=== PATIENT | male | born 1965 | race African-American/Black ===

== ENCOUNTER 2019-10-05 17:44 | Observation (INO) | payer BC, SELFPAY ==
--- NOTE | ~2019-10-05 | XR_ITS ---
EXAMINATION: XR chest 2V DATE: 10/05/2019 20:01 INDICATION: Emphysema. Buttock pain. TECHNIQUE: PA and lateral views of the chest were obtained. COMPARISON: Chest radiograph and CT dated 09/04/2018 FINDINGS: Increased lucency and architectural distortion the upper lung zones, right greater than left consiste nt with severe emphysema. Unchanged linear and hazy airspace opacities in the right mid to lower lung zone consistent with chronic atelectasis/scarring. No new airspace opacities, pulmonary edema, pleur al effusion or pneumothorax. The cardiomediastinal silhouette is normal. Minimal thoracic levocurvatu re. IMPRESSION: 1. Severe emphysema with stable appearance of chronic atelectasis/scarring in the right mid to lower lung. Reviewed, dictated and finalized at location A. IMPRESSION: 1. Severe emphysema with stable appearance of chronic atelectasis/scarring in t he right mid to lower lung.
--- NOTE | ~2019-10-05 | CT_ITS ---
EXAMINATION: CT pelvis w con DATE: 10/05/2019 19:57 INDICATION: Left buttock pain TECHNIQUE: Computed tomography (CT) of the pelvis was performed with 100 mL Omnipaque-350 intravenous contrast. The dose-length product was 193.10 mGy-cm. COMPARISON: 01/06/2019 FINDINGS: There are few scattered colonic diverticula without adjacent inflammatory change to suggest diverticu litis. Appendix and visualized portions of the small bowel are normal. Diffuse mild bladder wall thic kening due at least in part to decompressed state. There is inflammatory stranding surrounding a supe rficial peripherally enhancing ringlike perianal abscess which measures up to 1.2 cm in maximal cross -sectional diameter. There is no evident extension deep to the levator ani muscles. No intraperitonea l abscess or free intraperitoneal fluid. No pathologically enlarged pelvic or inguinal lymphadenopath y. Bones are unremarkable. IMPRESSION: 1. Superficial ringlike perianal abscess. Reviewed, dictated and finalized at location A.
[2019-10-05 17:55] VITALS: BP 126/77; PULSE 133; RESP 18; TEMP 36.2; O2SAT 94
[2019-10-05] MEDS: IBUPROFEN IV 800 MG/200 ML 800 MG/200 ML BAG 400 MG IVPB (18:24)
[2019-10-05] MEDS: FAMOTIDINE 20 MG/2 ML VIAL IV PUSH (18:24)
[2019-10-05 18:26] VITALS: PULSE 118
[2019-10-05] MEDS: SODIUM CHLORIDE 0.9% IV 1,000 ML 999 ML IV CONT (18:26)
--- NOTE | 2019-10-05 18:36 | PC.NURSE ---
Gave pt a urinal for urine sample. Pt states he is unable to provide sample at this time
[2019-10-05 18:47] LABS: Basophils Absolute Auto 0.1 K/mm3 (0.0-0.1); Basophils Percent Auto 0.6 % (0.2-1.2); Eosinophils Absolute Auto 0.2 K/mm3 (0-0.3); Eosinophils Percent Auto 1.3 % (0-4.4); Hematocrit 45.5 % (42.0-52.0); Hemoglobin 16.2 g/dL (14.0-18.0); Immature Granulocyte Absolute 0.07 K/mm3 (0.00-0.031); Immature Granulocyte Percent A 0.5 % (0-0.5); Lymphocytes Absolute Auto 1.09 K/mm3 (0.9-3.2); Mean Corpuscular HGB Conc 35.6 g/dl (32-36); Mean Corpuscular Hemoglobin 32.5 pg (26-34); Mean Corpuscular Volume 91.4 fl (80-100); Mean Platelet Volume 9.1 fl (7.4-10.4); Monocytes Absolute Auto 1.3 K/mm3 (0.1-0.6); Monocytes Percent Auto 8.5 % (2.6-8.5); Neutrophils Absolute Auto 12.7 K/mm3 (1.3-6.7); Neutrophils Percent Auto 82.1 % (45.5-73.1); Platelet Count Result 384 k/mm3 (150-375); Red Blood Count 4.98 M/mm3 (4.6-6.20); Red Cell Distribution Width 12.7 % (11.5-14.5); White Blood Count 15.5 K/mm3 (4.5-10.0)
[2019-10-05 18:55] LABS: Lactic Acid Reflex 1.3 mmol/L (0.7-2.1)
[2019-10-05 18:56] LABS: Partial Thromboplastin Time 28.8 SECONDS (22.3-36.8); Prothrombin Time 13.3 Seconds (11.1-14.7)
[2019-10-05 18:57] LABS: Alanine Aminotransferase 13 U/L (4-50); Albumin Level 4.2 g/dL (3.5-5.1); Alkaline Phosphatase 122 U/L (38-126); Aspartate Amino Transferase 21 U/L (17-59); Bilirubin,Total 0.5 mg/dL (0.2-1.3); Blood Urea Nitrogen 8 mg/dL (9-20); Calcium 9.2 mg/dL (8.4-10.2); Carbon Dioxide 27 mmol/L (22-30); Chloride 102 mmol/L (98-107); Estimated CRCL calculation 73 ml/min; Estimated Glomerular Filt Rate > 60; Glucose 146 mg/dL (75-110); Potassium 3.3 mmol/L (3.4-5.0); Sodium 135 mmol/L (137-145)
--- NOTE | 2019-10-05 18:58 | ED.GENADULT ---
HPI - General Adult General Chief complaint: Unspecified <Deon Narvaez PA-C - Last Filed: 10/05/19 20:46> Stated complaint: buttock pain <Deon Narvaez PA-C - Last Filed: 10/05/19 20:46> Time Seen by Provider: 10/05/19 17:48 <LUIZA Rivera Last Filed: 10/05/19 20:46> Source: patient <LUIZA Rivera Last Filed: 10/05/19 20:46> Mode of arrival: ambulatory <LUIZA Rivera Last Filed: 10/05/19 20:46> Limitations: no limitations <Deon Narvaez PA-C - Last Filed: 10/05/19 20:46> History of Present Illness HPI narrative: Patient is a 54-year-old male who presents with 1 day duration of rectal pain patient notes aching pain of the rectum worse with palpation activity movement and bowel movements patient denies injury trauma or similar occurrence patient presents per private vehicle in no distress has not taken anything for his symptoms. <Deon Narvaez PA-C - Last Filed: 10/05/19 20:46> Related Data Home medications: Home Medications Medication Instructions Recorded Confirmed No Home Medications 10/05/19 10/05/19 <LUIZA Rivera Last Filed: 10/05/19 20:46> Allergies/adverse reactions: Allergies Allergy/AdvReac Type Severity Reaction Status Date / Time No Known Allergies Allergy Verified 10/05/19 17:58 <LUIZA Rivera Last Filed: 10/05/19 20:46> Review of Systems Review of Systems: All systems reviewed & are unremarkable except as noted in HPI and below <Deon Narvaez PA-C - Last Filed: 10/05/19 20:46> PMFSH Past Medical History Medical History: Medical History Bilateral sensorineural hearing loss <LUIZA Rivera Last Filed: 10/05/19 20:46> Surgical History Surgical History: Surgical History No significant past surgical history <LUIZA Rivera Last Filed: 10/05/19 20:46> Social History Social History: Social History Smoking packs per day: 0.5 Smoking cigarettes per day: 10.0 Smoking status: Current every day smoker Tobacco type: cigarettes Drinks per week: 5 Substance use: never Gender identity (if verbalized by the patient): Male Spiritual care concerns: No <Deon Narvaez PA-C - Last Filed: 10/05/19 20:46> Exam Narrative: Exam Narrative: GENERAL: Well-appearing, well-nourished, and in no acute distress. HEAD: Normocephalic, atraumatic. EYES: PERRLA and EOMI. ENT: Nares clear, no rhinorrhea or epistaxis. Mucous membranes moist. Oropharynx without tonsillar hypertrophy exudate or other lesions. NECK: Supple. No adenopathy or masses. CHEST: Clear to auscultation. No respiratory distress. No wheezes rales or rhonchi HEART: Regular rate and rhythm. No murmur heard. Normal peripheral pulses. ABDOMEN: Soft, nontender, nondistended RECTAL: Patient with firm tender hard area along the rectum to involve the anal Derm no obvious erythema or drainage EXTREMITIES: Normal range of motion. No edema. SKIN: Warm, dry, no rash. NEURO: No focal deficits. Alert and oriented x3. Cranial nerves II through XII grossly intact. Normal speech and gait PSYCH: Normal mood and affect. 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 Patient will benefit from surgical debridement. Patient be given IV antibiotics, also possible with urinary tract infe
[2019-10-05 19:52] LABS: Add Urine Microscopic? YES; Appearance Urine Clear (Clear); Bacteria Urine 1+ /hpf; Bilirubin Urine Negative (Negative); Blood Urine 1+ (Negative); Color Urine Yellow (Yellow); Glucose Urine UA Negative (Negative); Ketones Urine Negative (Negative); Leukocyte Esterase Ur 2+ LEU/UL (Negative); Mucus Urine Few /lpf; Nitrate Urine Negative (Negative); Protein Urine 2+ mg/dL (Negative); Squamous Epithelial Cell Urine Occasional /hpf (Few); WBC Urine >75 /hpf
[2019-10-05 19:55] LABS: CRP 18.8 mg/dL (<1.0)
[2019-10-05 20:09] VITALS: BP 123/73; PULSE 106; RESP 18; TEMP 37.2; O2SAT 98
[2019-10-05] MEDS: ceFAZolin 2 GM/D5W 50 ML 2 GM/50 ML BAG IVPB (20:50)
--- NOTE | 2019-10-05 21:50 | ADMGEN ---
This patient, Soo Murillo, was admitted to 2 Medical Room 242-. Patient/family oriented to hospital policies and general routines including ID bracelet, bed and alarms, visiting hours, pain management, procedures, bathroom and other care routines, personal items, smoking policy, room service/diet, and visiting hours. Valuables list has been completed. Information on how to activate the Rapid Response Team has been discussed. Patient/Family are encouraged to report perceived risks to care and to ask questions if they do not understand what they are told or what they should do.
[2019-10-05 22:00] VITALS: BP 109/92; PULSE 102; RESP 20; TEMP 37.2; O2SAT 100
[2019-10-05] MEDS: LACTATED RINGERS 1,000 ML 125 ML IV CONT (22:01)
[2019-10-05 22:08] VITALS: BMI 19.5
[2019-10-06] VITALS: BP 106/65; PULSE 88; RESP 18; TEMP 37.1; O2SAT 99
[2019-10-06 04:00] VITALS: BP 104/62; PULSE 78; RESP 20; TEMP 37.2; O2SAT 96
[2019-10-06] MEDS: LACTATED RINGERS 1,000 ML 125 ML IV CONT (05:40)
[2019-10-06 05:46] LABS: Basophils Absolute Auto 0.1 K/mm3 (0.0-0.1); Basophils Percent Auto 0.6 % (0.2-1.2); Eosinophils Absolute Auto 0.5 K/mm3 (0-0.3); Eosinophils Percent Auto 3.5 % (0-4.4); Hematocrit 41.8 % (42.0-52.0); Hemoglobin 14.8 g/dL (14.0-18.0); Immature Granulocyte Absolute 0.08 K/mm3 (0.00-0.031); Immature Granulocyte Percent A 0.6 % (0-0.5); Lymphocytes Percent Auto 7.9 % (18.3-44.2); Mean Corpuscular HGB Conc 35.4 g/dl (32-36); Mean Corpuscular Hemoglobin 32.5 pg (26-34); Mean Corpuscular Volume 91.9 fl (80-100); Mean Platelet Volume 9.2 fl (7.4-10.4); Monocytes Absolute Auto 1.4 K/mm3 (0.1-0.6); Monocytes Percent Auto 10.9 % (2.6-8.5); Neutrophils Absolute Auto 9.7 K/mm3 (1.3-6.7); Neutrophils Percent Auto 76.5 % (45.5-73.1); Platelet Count Result 361 k/mm3 (150-375); Red Blood Count 4.55 M/mm3 (4.6-6.20); Red Cell Distribution Width 12.8 % (11.5-14.5); White Blood Count 12.7 K/mm3 (4.5-10.0)
[2019-10-06 05:53] VITALS: BP 104/62; PULSE 78; RESP 20; TEMP 37.2; O2SAT 96
[2019-10-06 05:58] LABS: Blood Urea Nitrogen 7 mg/dL (9-20); Calcium 8.6 mg/dL (8.4-10.2); Carbon Dioxide 27 mmol/L (22-30); Chloride 105 mmol/L (98-107); Estimated CRCL calculation 91 ml/min; Estimated Glomerular Filt Rate > 60; Glucose 102 mg/dL (75-110); Potassium 3.4 mmol/L (3.4-5.0); Sodium 137 mmol/L (137-145)
[2019-10-06] MEDS: FAMOTIDINE 20 MG/2 ML VIAL IV PUSH (09:36)
--- NOTE | 2019-10-06 09:53 | PM.IMHP ---
H&P: HPI History of Present Illness Chief complaint: Perirectal abscess Narrative: Soo Murillo is a 54 year old male presenting to ED c 2 d h/o worsening rectal pain. Pt reports pain started when he had a BM and felt something rip. Pt reports severe pressure and pain over last 24 hours. Pt reports this am pain and pressure are much improved. Review of Systems Constitutional: Constitutional: Denies anorexia, Denies chills, Denies fatigue, Denies headache(s), Denies malaise, Denies poor appetite, Denies weight gain and Denies weight loss Eyes: Eyes: Denies no additional eye complaints and Denies change in vision ENT: Reports Normal hearing present, Denies headache(s), Denies hearing loss and Denies sore throat Cardiovascular: Cardiovascular: Denies chest pain, Denies palpitations and Denies dyspnea Respiratory: Respiratory: Denies cough and Denies dyspnea Gastrointestinal: Gastrointestinal: Denies abdominal pain, Denies change in stool character, Denies constipation, Denies diarrhea, Denies nausea and Denies vomiting Comments: + rectal pain Genitourinary: Genitourinary: Denies dysuria, Denies urinary frequency and Denies urinary urgency Musculoskeletal: Musculoskeletal: Reports no additional musculoskeletal complaints Integumentary/Breasts: Skin/Breast: Denies pruritus, Denies lesions and Denies wounds Neurologic: Denies confusion and Denies headache(s) Psychiatric: Psychiatric: Reports no additional psychiatric complaints and Denies confusion Endocrine: Endocrine: Reports no additional endocrine complaints, Denies fatigue and Denies palpitations Hematologic/Lymphatic: Hematologic/Lymphatic: Reports no additional hematologic/lymphatic complaints Allergic/Immunologic: Allergic/Immunologic: Reports no additional allergic/immunologic complaints [facility] Past Medical History Medical History Bilateral sensorineural hearing loss Surgical History Surgical History No significant past surgical history Family History Family History Other No significant family history Social History Social History Smoking packs per day: 0.5 Smoking cigarettes per day: 10.0 Smoking status: Current every day smoker Tobacco type: cigarettes Drinks per week: 5 Substance use: never Gender identity (if verbalized by the patient): Male Spiritual care concerns: No Meds Home Medications and Allergies Home Medications Medication Instructions Recorded Confirmed Type No Home Medications 10/05/19 10/05/19 History Allergies Allergy/AdvReac Type Severity Reaction Status Date / Time No Known Allergies Allergy Verified 10/05/19 17:58 Vital Signs Vital Signs - 24 hr 10/05/19 17:55 10/05/19 18:26 10/05/19 20:09 Temperature 36.2 C L 37.2 C Pulse Rate 133 H 118 H 106 H Respiratory Rate 18 18 Blood Pressure 126/77 123/73 Pulse Oximetry 94 98 10/05/19 22:00 10/06/19 00:00 10/06/19 04:00 Temperature 37.2 C 37.1 C 37.2 C Pulse Rate 102 H 88 78 Respiratory Rate 20 18 20 Blood Pressure 109/92 H 106/65 104/62 Pulse Oximetry 100 99 96 10/06/19 05:53 Temperature 37.2 C Pulse Rate 78 Respiratory Rate 20 Blood Pressure 104/62 Pulse Oximetry 96 Exam Const: General: cooperative, healthy appearing, no acute distress and well developed; No confusion Orientation/consciousness: patient oriented x3 and No confusion HENMT: Head: normal to inspection, normocephalic and atraumatic Mouth: Yes Normal oral and palatal mucosa present and Yes moist mucous membranes Teeth and gingiva: dentition normal Eyes: Conjunctivae: conjunctivae normal Pupils: Equal, round and reactive pupils present EOM: EOMs intact bilaterally Neck: Neck: normal visual inspection, full ROM, no lymphadenopathy, trachea
[2019-10-06 10:00] VITALS: BP 129/77; PULSE 98; RESP 18; TEMP 36.7; O2SAT 94
--- NOTE | 2019-10-06 10:05 | PM.DS ---
DS: Admitting Diagnosis Admitting Diagnosis Admitting Diagnosis: Rectal abscess DS: Discharge Diagnosis Discharge Diagnosis (1) Abscess, perirectal: Code(s): K61.1 - Rectal abscess Status: Acute Assessment and Plan: cont abx, will switch to po Keflex at dc, cont local wound care, f/u c me in 1 wk DS: Summary Hospital Course Reason for hospitalization: perirectal abscess Hospital Course: Pt admitted to hospital c perirectal abscess. Pt reports pain significantly improved on HD 1 after abx, pain meds. Rectal exam on HD 1 benign. Given this, decision to switch to po abx and dc home c close f/u and wound care. Status at Discharge Functional status at discharge: independent ambulation Overall status at discharge: patient is progressing back to baseline Time Spent with Patient Time attestation: Total time spent providing and/or coordinating discharge services: Time spent: Less than 30 minutes DS: Data Data Completed and Pending Labs on day of discharge: Labs from last 24 hours 10/06/19 10/06/19 10/05/19 05:10 05:10 19:39 WBC 12.7 H RBC 4.55 L Hgb 14.8 Hct 41.8 L MCV 91.9 MCH 32.5 MCHC 35.4 RDW 12.8 Plt Count 361 MPV 9.2 Immature Gran % (Auto) 0.6 H Neut % (Auto) 76.5 H Lymph % (Auto) 7.9 L Piatt % (Auto) 10.9 H Eos % (Auto) 3.5 Baso % (Auto) 0.6 Lymph # (Auto) 1.00 Piatt # (Auto) 1.4 H Eos # (Auto) 0.5 H Baso # (Auto) 0.1 Abs Immat Gran (auto) 0.08 H Absolute Neuts (auto) 9.7 H Absolute Nucleated RBC 0.0 Nucleated RBC % 0.0 PT INR APTT Sodium 137 Potassium 3.4 Chloride 105 Carbon Dioxide 27 BUN 7 L Creatinine 0.80 Estim Creat Clear Calc 91 Estimated GFR > 60 Glucose 102 Lactic Acid Calcium 8.6 Total Bilirubin AST ALT Alkaline Phosphatase C-Reactive Protein Total Protein Albumin Urine Color Yellow Urine Appearance Clear Urine pH 5.0 Ur Specific [place] 1.020 Urine Protein 2+ H Urine Glucose (UA) Negative Urine Ketones Negative Ur Blood (Man) 1+ H Urine Nitrate Negative Urine Bilirubin Negative Urine Urobilinogen 2.0 H Leukocyte Esterase Rfl 2+ H Urine RBC 3-5 H Urine WBC >75 H Ur Squamous Epith Cells Occasional Urine Bacteria 1+ H Hyaline Casts 5-9 H Urine Mucus Few H 10/05/19 10/05/19 10/05/19 18:29 18:29 18:29 WBC RBC Hgb Hct MCV MCH MCHC RDW Plt Count MPV Immature Gran % (Auto) Neut % (Auto) Lymph % (Auto) Piatt % (Auto) Eos % (Auto) Baso % (Auto) Lymph # (Auto) Piatt # (Auto) Eos # (Auto) Baso # (Auto) Abs Immat Gran (auto) Absolute Neuts (auto) Absolute Nucleated RBC Nucleated RBC % PT 13.3 INR 1.0 APTT 28.8 Sodium 135 L Potassium 3.3 L Chloride 102 Carbon Dioxide 27 BUN 8 L Creatinine 1.00 Estim Creat Clear Calc 73 Estimated GFR > 60 Glucose 146 H Lactic Acid 1.3 Calcium 9.2 Total Bilirubin 0.5 AST 21 ALT 13 Alkaline Phosphatase 122 C-Reactive Protein 18.8 H Total Protein 8.0 Albumin 4.2 Urine Color Urine Appearance Urine pH Ur Specific [place] Urine Protein Urine Glucose (UA) Urine Ketones Ur Blood (Man) Urine Nitrate Urine Bilirubin Urine Urobilinogen Leukocyte Esterase Rfl Urine RBC Urine WBC Ur Squamous Epith Cells Urine Bacteria Hyaline Casts Urine Mucus 10/05/19 18:29 WBC 15.5 H RBC 4.98 Hgb 16.2 Hct 45.5 MCV 91.4 MCH 32.5 MCHC 35.6 RDW 12.7 Plt Count 384 H MPV 9.1 Immature Gran % (Auto) 0.5 Neut % (Auto) 82.1 H Lymph % (Auto) 7.0 L Piatt % (Auto) 8.5 Eos % (Auto) 1.3 Baso % (Auto) 0.6 Lymph # (Auto) 1.09 Piatt # (Auto) 1.3 H Eos # (Auto) 0.2 Baso # (Auto) 0.1 Abs Immat Gran (auto) 0.07 H Absolute Neuts (auto)
[2019-10-06 13:56] VITALS: BP 116/66; PULSE 83; RESP 16; TEMP 37.4; O2SAT 99
== END 2019-10-06 14:45 | disposition home or self-care (01) ==
LOC: ANHED 20:46 → ANH2MED 21:01
PROVIDERS: Emergency Medicine Emergency Medical Services; Admitting Provider Surgery; Emergency Provider Emergency Medicine; Visit Provider Surgery
DX: K61.1 Rectal abscess (principal); F17.210 Nicotine dependence, cigarettes, uncomplicated; Z79.899 Other long term (current) drug therapy
CPT/HCPCS: 36415; 71046; 72193; 80048; 80053; 81001; 83605; 85025; 85610; 85730; 86140; 87040; 87077; 87086; 87186; 96361; 96365; 96367; 96375; 96376; 99285; G0378; J0131; J0690; J1741; J7030; J7120; Q9967

== ENCOUNTER 2022-01-26 09:07 | Observation (INO) | payer OTHER, BC, SELFPAY ==
[2022-01-26] VITALS (30 sets, daily range): BP systolic 86–126; BP diastolic 53–74; PULSE 77–112; RESP 12–33; TEMP 36.8–38.3; O2SAT 94–100
--- NOTE | ~2022-01-26 | CT_ITS ---
EXAMINATION: CT cervical spine wo con DATE: 01/26/2022 09:53 INDICATION: Altered mental status. TECHNIQUE: Computed tomography (CT) of the cervical spine was performed without intravenous contrast. Automated exposure control and iterative reconstruction technique were employed. The dose-length pro duct was 337.62 mGy-cm. COMPARISON: None FINDINGS: There is bullous emphysema at the lung apices. There is kyphosis of cervical spine. Vertebr al body heights are normal. There is moderately decreased disc height at C4-C5. The following disc le vels are specifically discussed: C2-C3: There is mild bilateral uncovertebral joint osteoarthritis. There is mild right and severe lef t facet joint osteoarthritis. There is no neural foraminal stenosis. There is no central canal stenos is. C3-C4: There is mild left uncovertebral joint osteoarthritis. There is severe right and moderate left facet joint osteoarthritis. There is mild right neural foraminal stenosis. There is no central canal stenosis. C4-C5: There is mild bilateral uncovertebral joint osteoarthritis. There is mild right and severe lef t facet joint osteoarthritis. There is mild bilateral neural foraminal stenosis. There is no central canal stenosis. C5-C6: There is mild bilateral uncovertebral joint osteoarthritis. There is mild bilateral facet join t osteoarthritis. There is mild left neural foraminal stenosis. There is no central canal stenosis. C6-C7: There is no uncovertebral joint osteoarthritis. There is moderate right and severe left facet joint osteoarthritis. There is mild bilateral neural foraminal stenosis. There is no central canal st enosis. C7-T1: There is no uncovertebral joint osteoarthritis. There is severe bilateral facet joint osteoart hritis. There is mild bilateral neural foraminal stenosis. There is no central canal stenosis. IMPRESSION: 1. No fracture. 2. Moderate cervical spondylosis. Reviewed, dictated and finalized at location A.
--- NOTE | ~2022-01-26 | MR_ITS ---
EXAMINATION: MR brain/brain stem wo con DATE: 01/27/2022 12:07 INDICATION: New onset seizure. TECHNIQUE: Magnetic resonance imaging (MRI) of the brain and brainstem was performed without intraven ous contrast. COMPARISON: Head CT 01/26/2022 FINDINGS: There are scattered areas of nonspecific increased T2-weighted signal intensity in the cere bral white matter, which is within normal limits for the patient's age. There is no intracranial hemo rrhage, acute infarction, or abnormal intracranial mass lesion. The ventricles are normal in size. Th e orbits are normal. There is mild mucosal thickening in the paranasal sinuses. There are trace bilat eral mastoid effusions. IMPRESSION: 1. Normal aging brain. Reviewed, dictated and finalized at location A. IMPRESSION: 1. Normal aging brain.
--- NOTE | ~2022-01-26 | XR_ITS ---
EXAMINATION: XR chest 1V INDICATION: Altered mental status TECHNIQUE: AP view of the chest is obtained. COMPARISON: 10/05/2019 FINDINGS: There is severe emphysema in the upper lobes. There are areas of scarring in the right mid and lower lung zones. No acute airspace opacities are identified. No pleural effusion or pneumothorax . The cardiomediastinal silhouette is normal. Surgical clips project in the right axilla and upper ex tremity soft tissues. IMPRESSION: 1. No acute cardiopulmonary abnormality. Reviewed, dictated and finalized at location A.
--- NOTE | ~2022-01-26 | CT_ITS ---
EXAMINATION: CT brain wo con INDICATION: Confusion, altered mental status COMPARISON: None TECHNIQUE: Standard unenhanced head CT. The dose-length product (DLP) was 605.33 mGy-cm. The mA was a djusted according to patient size. Iterative reconstruction technique was employed. FINDINGS: There is no intracranial hemorrhage, acute infarction, or abnormal mass lesion. The ventric les are normal. There is no abnormal mass effect or midline shift. The gandara-white matter differentiat ion is normal. The basal cisterns are patent. The orbits are normal. The paranasal sinuses, mastoids and calvarium are normal. IMPRESSION: 1. No acute intracranial abnormality. Reviewed, dictated and finalized at location A.
--- NOTE | 2022-01-26 09:10 | ECG_ITS ---
Measurements Intervals [place] Rate: 88 P: 81 VA: 124 QRS: 79 QRSD: 88 T: 79 QT: 347 QTc: 421 Interpretive Statements SINUS RHYTHM NO PREVIOUS ECG AVAILABLE FOR COMPARISON Electronically Signed On 01-27-2022 13:03:02 CDT by Jo Lei M.D.
--- NOTE | 2022-01-26 09:13 | PC.NURSE ---
fall precautions initiated, at bedside, sitter placed with patient for patient safety.
--- NOTE | 2022-01-26 09:19 | ED.GENADULT ---
HPI - General Adult General Chief complaint: Altered Mental Status Stated complaint: AMS Source: RN notes reviewed History of Present Illness HPI narrative: Patient presents emergency department from home via EMS for altered mental status. History is per the patient and as well as EMS. states she came home from work this morning and the patient stated that he had a headache states he had a bump on the side of his head he is unsure how he got the bump on the side of his head. Per the patient's the patient then began to act altered and she states he clenched up his arms and was grabbing his head and screaming states that following this the patient became confused and EMS was called when EMS arrived the patient was combative was unable to give any history and could not be brought to the ER without any medication he was given Valium 5 mg and Haldol 5 mg. Upon presentation the emergency department the patient is now more awake and alert he is able to tell me his name he states he is unsure why he is here and does not know what happened previously per the the patient has no history of seizures per the patient he denies any drug use of any kind Related Data Allergies Allergy/AdvReac Type Severity Reaction Status Date / Time No Known Allergies Allergy Verified 10/05/19 17:58 Review of Systems Review of Systems: Gen.: Denies fevers or chills ENT: Denies congestion Respiratory: Denies shortness of breath or cough CV: Denies chest pain GI: Denies abdominal pain nausea, emesis Musculoskeletal: Denies back pain or muscle pain Neuro: D reports headache and altered mental status Skin: Denies rash Except as documented, all other systems reviewed and negative [facility] Past Medical History Medical History (Updated 01/26/22 @ 12:46 by Louis Gan DO) Bilateral sensorineural hearing loss Surgical History Surgical History No significant past surgical history Family History Family History Other No significant family history Social History Social History Smoking packs per day: 0.5 Smoking cigarettes per day: 10.0 Smoking status: Current every day smoker Tobacco type: cigarettes Drinks per week: 5 Substance use: never Gender identity (if verbalized by the patient): Male Spiritual care concerns: No Exam Narrative: APPEARANCE: No acute distress, nontoxic, resting in bed EYES: EOMI HEENT: Normocephalic, atraumatic, OMM RESPIRATORY: No respiratory distress Clear to auscultation bilaterally with no rhonchi wheezing or rales. CARDIOVASCULAR: Tachycardic and regular without murmurs rubs or gallops. ABDOMINAL: Soft, nontender, nondistended, no rebound or guarding MUSCULOSKELETAl: Moves all extremities. No clubbing, cyanosis or edema. NEURO: Awake and alert x 1. Following commands, speech normal, no focal deficits strength 5 out of 5 in bilateral upper and lower extremities SKIN:: Warm, dry. No rashes lesions or abrasions PSYCHIATRIC: Normal affect/mood, Course Course Emergency Course: Patient is progressively become more awake and alert currently ANO x3 answering all questions does not recall the incidents from earlier Discussed with Dr. Hess presentation work-up agrees with consult agrees with plan for loading with 1 g of Keppra and 500 twice daily Discussed with Dr. Gaston agrees with admission Discussed with patient and family results of workup and diagnosis. Discussed need for admission. Patient and family understand and agree to current treatment plan Patient is remained awake and alert x4 he has no complaints at this time Vital Signs Vital signs: Vital Signs Temperature 98.2 F 01/26/22 09:10 Pulse Rate 100 01/26/22 09:10 Respiratory Rate 20 01/26/22 09:10 Blood Pressure 126/67 01/26/22 09:10 Pulse Oximetr
[2022-01-26 09:23] LABS: Basophils Absolute Auto 0.1 K/mm3 (0.0-0.1); Basophils Percent Auto 0.8 % (0.2-1.2); Eosinophils Absolute Auto 0.1 K/mm3 (0-0.3); Eosinophils Percent Auto 1.3 % (0-4.4); Hematocrit 44.7 % (42.0-52.0); Hemoglobin 15.1 g/dL (14.0-18.0); Immature Granulocyte Absolute 0.05 K/mm3 (0.00-0.031); Immature Granulocyte Percent A 0.5 % (0-0.5); Lymphocytes Absolute Auto 2.55 K/mm3 (0.9-3.2); Lymphocytes Percent Auto 24.2 % (18.3-44.2); Mean Corpuscular HGB Conc 33.8 g/dl (32-36); Mean Corpuscular Hemoglobin 33.1 pg (26-34); Mean Platelet Volume 8.6 fl (7.4-10.4); Monocytes Absolute Auto 0.8 K/mm3 (0.1-0.6); Neutrophils Absolute Auto 6.9 K/mm3 (1.3-6.7); Neutrophils Percent Auto 65.2 % (45.5-73.1); Platelet Count Result 401 k/mm3 (150-375); Red Blood Count 4.56 M/mm3 (4.6-6.20); White Blood Count 10.5 K/mm3 (4.5-10.0)
[2022-01-26] MEDS: SODIUM CHLORIDE 0.9% IV 1,000 ML 999 ML IV CONT ×2 (09:29→10:10)
[2022-01-26 09:32] LABS: Prothrombin Time 13.2 Seconds (11.1-14.7)
[2022-01-26 09:33] LABS: Partial Thromboplastin Time 24.2 SECONDS (22.3-36.8)
[2022-01-26 09:35] LABS: Albumin Level 4.3 g/dL (3.5-5.1); Alkaline Phosphatase 107 U/L (38-126); Anion Gap 19 mmol/L (8-16); Aspartate Amino Transferase 40 U/L (17-59); Bilirubin,Total 0.5 mg/dL (0.2-1.3); Blood Urea Nitrogen 14 mg/dL (9-20); Calcium 8.8 mg/dL (8.4-10.2); Carbon Dioxide 13 mmol/L (22-30); Chloride 106 mmol/L (98-107); Creatine Kinase 228 U/L (55-170); Estimated Glomerular Filt Rate > 60; Ethanol < 10 mg/dL (<10); Glucose 215 mg/dL (65-110); Magnesium 2.2 mg/dL (1.6-2.3); Potassium 3.3 mmol/L (3.4-5.0); Sodium 138 mmol/L (137-145)
--- NOTE | 2022-01-26 09:35 | PC.NURSE ---
Patient placed on bed alarm
[2022-01-26 09:55] LABS: Add Urine Microscopic? YES; Appearance Urine Clear (Clear); Bilirubin Urine Negative (Negative); Blood Urine 2+ (Negative); Color Urine Yellow (Yellow); Glucose Urine UA Negative (Negative); Ketones Urine Negative (Negative); Leukocyte Esterase Ur Negative LEU/UL (Negative); Mucus Urine Rare /lpf; Nitrate Urine Negative (Negative); Protein Urine 1+ mg/dL (Negative); RBC Urine 0-2 /hpf (0-2); Specific Grav Ur 1.014 (1.001-1.035); Urobilinogen Urine Negative mg/dL (<2.0); WBC Urine 0-3 /hpf
--- NOTE | 2022-01-26 09:56 | PC.NURSE ---
Patient back from CT, sitter at bedside. Patient still trying to get out of bed.
[2022-01-26 10:03] LABS: Amphetamine Screen Urine Negative (Negative); Barbiturate Screen Urine Negative (Negative); Benzodiazepines Screen Urine Negative (Negative); Cannabinoid Screen Urine Positive (Negative); Cocaine Screen Urine Negative (Negative); Methadone Screen Urine Negative (Negative); Opiate Screen Urine Negative (Negative); Phencyclidine Screen Urine Negative (Negative)
[2022-01-26] MEDS: levETIRAcetam 1000MG/NACL100ML 1,000 MG/100 ML BAG 400 MG IVPB (10:11)
[2022-01-26 10:23] LABS: Alanine Aminotransferase 46 U/L (6-50)
[2022-01-26 12:19] LABS: Reflex Lactic Acid Yes or No Add Lactic
[2022-01-26 12:32] LABS: Lactic Acid Reflex 1.4 mmol/L (0.7-2.0)
[2022-01-26 12:33] LABS: Anion Gap 3 mmol/L (8-16); Blood Urea Nitrogen 12 mg/dL (9-20); Calcium 7.9 mg/dL (8.4-10.2); Carbon Dioxide 21 mmol/L (22-30); Chloride 112 mmol/L (98-107); Estimated Glomerular Filt Rate > 60; Glucose 88 mg/dL (65-110); Potassium 3.4 mmol/L (3.4-5.0); Sodium 136 mmol/L (137-145)
--- NOTE | 2022-01-26 15:18 | PM.IMHP ---
H&P: HPI History of Present Illness Date/Time: 01/26/22 15:18 Chief Complaint: Altered mental status Narrative: Patient presents to the ED with altered mental status in episode of seizure at home. came home from work earlier this morning when the patient stated that he had a headache and had a bump on his head but he was not sure how he got that bump. Was noted to be confused and later he started clinching is arms in grabbing his head and had abnormal body movement suggestive of seizure-like activity. At that point 911 was called and EMS arrived. Patient was combative and unable to give history at that time. He was given Valium and Haldol in ER he is currently alert and oriented x3 and unsure why he got here. He denies any fall but he reports hurting in his left toe. No prior history of seizure. In the lab he was noted to have lactic acidosis hyperglycemia. This resolves subsequent lab work. His getting admitted for further evaluation and management. Neurology has been consulted and he has been loaded with Keppra. Review of Systems Review of Systems: - CONSTITUTIONAL: Denies weight loss, fever and chills. - HEENT: Denies changes in vision and hearing - RESPIRATORY: Denies SOB and cough. - CV: Denies palpitations and CP. - GI: Denies abdominal pain, nausea, vomiting and diarrhea. - : Denies dysuria and urinary frequency. - MSK: Denies myalgia and joint pain. Reports left foot pain - SKIN: Denies rash and pruritus. - NEUROLOGICAL: Denies headache and syncope. - PSYCHIATRIC: Denies recent changes in mood. Denies anxiety and depression. [facility] Past Medical History Medical History (Updated 01/26/22 @ 12:46 by Louis Gan DO) Bilateral sensorineural hearing loss Surgical History Surgical History No significant past surgical history Family History Family History Other No significant family history Social History Social History Smoking packs per day: 0.5 Smoking cigarettes per day: 10.0 Smoking status: Current every day smoker Tobacco type: cigarettes Drinks per week: 5 Substance use: never Gender identity (if verbalized by the patient): Male Spiritual care concerns: No Meds Home Medications and Allergies Home Medications Medication Instructions Recorded Confirmed Type cephalexin 500 mg capsule (Keflex) 500 mg PO Q8H #30 caps 10/06/19 Rx tramadol 50 mg tablet 50 mg PO Q6H PRN pain #20 tabs 10/06/19 Rx Allergies Allergy/AdvReac Type Severity Reaction Status Date / Time No Known Allergies Allergy Verified 10/05/19 17:58 Vital Signs Vital Signs - 24 hr 01/26/22 09:10 01/26/22 09:54 01/26/22 10:04 Temperature 98.2 F Pulse Rate 100 112 H 87 Respiratory Rate 20 22 H Blood Pressure 126/67 109/63 Pulse Oximetry 100 98 Oxygen Delivery Room Air 01/26/22 10:39 01/26/22 09:30 01/26/22 09:58 Temperature Pulse Rate 88 89 99 Respiratory Rate 18 28 H 18 Blood Pressure 99/56 L Pulse Oximetry 94 Oxygen Delivery 01/26/22 10:00 01/26/22 10:01 01/26/22 10:15 Temperature Pulse Rate 88 88 91 Respiratory Rate 23 H 21 H 18 Blood Pressure 109/63 Pulse Oximetry Oxygen Delivery 01/26/22 10:16 01/26/22 10:20 01/26/22 10:30 Temperature Pulse Rate 96 87 93 Respiratory Rate 23 H 23 H 16 Blood Pressure 86/56 L 95/53 L Pulse Oximetry Oxygen Delivery 01/26/22 10:31 01/26/22 10:45 01/26/22 10:46 Temperature Pulse Rate 86 90 88 Respiratory Rate 20 26 H 26 H Blood Pressure 99/56 L 105/72 Pulse Oximetry Oxygen Delivery 01/26/22 11:00 01/26/22 11:01 01/26/22 11:15 Temperature Pulse Rate 83 85 87 Respiratory Rate 27 H 23 H 26 H Blood Pressure 103/67 Pulse Oximetry Oxygen Delivery 01/26/22 11:30 01/26/22 11
--- NOTE | 2022-01-26 15:45 | ADMGEN ---
This patient, Soo Murillo, was admitted to 3 [facility] Surg Room 307-01. Patient/family oriented to hospital policies and general routines including ID bracelet, bed and alarms, visiting hours, pain management, procedures, bathroom and other care routines, personal items, smoking policy, room service/diet, and visiting hours. Information on how to activate the Rapid Response Team has been discussed. Patient/Family are encouraged to report perceived risks to care and to ask questions if they do not understand what they are told or what they should do.
[2022-01-26 16:55] LABS: EDCOVIDSCREEN Negative (Negative)
[2022-01-26 17:37] LABS: Hemoglobin A1C 5.5 % (<5.7)
[2022-01-26] MEDS: POTASSIUM CHLORIDE 20 MEQ TABLET 40 MEQ PO (20:39)
[2022-01-26] MEDS: levETIRAcetam 500 MG TABLET PO (20:43)
[2022-01-27] VITALS: PULSE 71
[2022-01-27 04:00] VITALS: PULSE 81
[2022-01-27 06:00] VITALS: BP 117/71; PULSE 69; RESP 12; TEMP 36.9; O2SAT 97
[2022-01-27 06:36] LABS: Basophils Absolute Auto 0.1 K/mm3 (0.0-0.1); Basophils Percent Auto 0.7 % (0.2-1.2); Eosinophils Absolute Auto 0.2 K/mm3 (0-0.3); Eosinophils Percent Auto 2.5 % (0-4.4); Hematocrit 40.6 % (42.0-52.0); Hemoglobin 14.3 g/dL (14.0-18.0); Immature Granulocyte Absolute 0.02 K/mm3 (0.00-0.031); Immature Granulocyte Percent A 0.2 % (0-0.5); Lymphocytes Absolute Auto 2.61 K/mm3 (0.9-3.2); Lymphocytes Percent Auto 29.7 % (18.3-44.2); Mean Corpuscular HGB Conc 35.2 g/dl (32-36); Mean Corpuscular Volume 93.8 fl (80-100); Mean Platelet Volume 8.7 fl (7.4-10.4); Monocytes Absolute Auto 0.8 K/mm3 (0.1-0.6); Monocytes Percent Auto 9.3 % (2.6-8.5); Neutrophils Absolute Auto 5.1 K/mm3 (1.3-6.7); Neutrophils Percent Auto 57.6 % (45.5-73.1); Platelet Count Result 330 k/mm3 (150-375); Red Blood Count 4.33 M/mm3 (4.6-6.20); Red Cell Distribution Width 13.7 % (11.5-14.5); White Blood Count 8.8 K/mm3 (4.5-10.0)
[2022-01-27 06:45] LABS: Alanine Aminotransferase 26 U/L (6-50); Albumin Level 3.5 g/dL (3.5-5.1); Alkaline Phosphatase 78 U/L (38-126); Anion Gap 9 mmol/L (8-16); Aspartate Amino Transferase 46 U/L (17-59); Bilirubin,Total 0.8 mg/dL (0.2-1.3); Blood Urea Nitrogen 10 mg/dL (9-20); Calcium 8.4 mg/dL (8.4-10.2); Carbon Dioxide 24 mmol/L (22-30); Chloride 109 mmol/L (98-107); Estimated Glomerular Filt Rate > 60; Glucose 86 mg/dL (65-110); Magnesium 2.4 mg/dL (1.6-2.3); Potassium 3.5 mmol/L (3.4-5.0); Sodium 142 mmol/L (137-145)
[2022-01-27 07:54] VITALS: O2SAT 94
[2022-01-27 08:00] VITALS: PULSE 65
--- NOTE | 2022-01-27 08:44 | WPDNEURCNPN ---
Assessment and Plan Assessment and plan (1) New onset seizure: Code(s): R56.9 - Unspecified convulsions Status: Acute Plan Mr. Murillo is a 56 year old male presenting due to concerns for seizure-like activity. Concern for seizure vs drug reaction (UDS positive for marijuana). - Routine EEG - MRI brain w/o contrast - Continue Keppra 500mg BID - No driving until seizure free for 6 months Consult date: 01/27/22 Time Seen: 08:45 Reason for consult: Seizure-like activity HPI: Soo Murillo is a 56 year old male with a history of sensorineural hearing loss, tobacco and marijuana use who presented yesterday due to seizure-like activity. came home from work and found patient with bump on his head. Later she witnessed an event described as him clenching his arm and grabbing his head . EMS was called and he was given a dose of valium and Haldol due to agitation. On arrival to the ED he was still altered but eventually regained consciousness. UDS was positive for marijuana. CT head was negative for acute process. He is now back to baseline. He has no prior history of seizures, but does report history of auras in the past year, described as rising sensation . Review of Systems Constitutional: Constitutional: Reports no additional constitutional complaints Eyes: Eyes: Reports no additional eye complaints ENT: Comments: hearing loss Cardiovascular: Cardiovascular: Reports no additional cardiovascular complaints Respiratory: Respiratory: Reports no additional respiratory complaints Gastrointestinal: Gastrointestinal: Reports no additional gastrointestinal complaints Genitourinary: Genitourinary: Reports no additional male genitourinary complaints Musculoskeletal: Musculoskeletal: Reports no additional musculoskeletal complaints Integumentary/Breasts: Skin/Breast: Reports system reviewed and no additional complaints, except as docu Neurologic: Reports as per HPI Psychiatric: Psychiatric: Reports no additional psychiatric complaints [facility] Past Medical History Medical History Bilateral sensorineural hearing loss Surgical History Surgical History No significant past surgical history Family History Family History Other No significant family history Social History Social History Smoking packs per day: 1 Smoking cigarettes per day: 20.0 Years smoked: 40 Smoking pack-years: 40.00 Smoking status: Current every day smoker Tobacco type: cigarettes Alcohol intake: current Drinks per week: 28 Substance use: current Substance use type: marijuana Other substance usage details: daily Last use: 01/25/2022 Gender identity (if verbalized by the patient): Male Spiritual care concerns: No Meds Home Medications and Allergies Home Medications Medication Instructions Recorded Confirmed Type No Home Medications 01/26/22 01/26/22 History Allergies Allergy/AdvReac Type Severity Reaction Status Date / Time No Known Allergies Allergy Verified 10/05/19 17:58 Vital Signs Vital Signs - 24 hr 01/26/22 09:10 01/26/22 09:54 01/26/22 10:04 Temperature 36.8 C Pulse Rate 100 112 H 87 Respiratory Rate 20 22 H Blood Pressure 126/67 109/63 Pulse Oximetry 100 98 Oxygen Delivery Room Air 01/26/22 10:39 01/26/22 09:30 01/26/22 09:58 Temperature Pulse Rate 88 89 99 Respiratory Rate 18 28 H 18 Blood Pressure 99/56 L Pulse Oximetry 94 Oxygen Delivery 01/26/22 10:00 01/26/22 10:01 01/26/22 10:15 Temperature Pulse Rate 88 88 91 Respiratory Rate 23 H 21 H 18 Blood Pressure 109/63 Pulse Oximetry Oxygen Delivery 01/26/22 10:16 01/26/22 10:20 01/26/22 10:30 Temperature Pulse Rate 96 87 93 Respiratory Rate 23 H 23 H 1
[2022-01-27] MEDS: levETIRAcetam 500 MG TABLET PO (09:25)
[2022-01-27 11:30] VITALS: BMI 20.8
--- NOTE | 2022-01-27 12:29 | PM.IMPN ---
Progress Note: A&P Assessment and Plan (1) New onset seizure: Code(s): R56.9 - Unspecified convulsions Status: Acute (2) Acute metabolic encephalopathy: Code(s): G93.41 - Metabolic encephalopathy Status: Acute Plan # Altered mental status TSH normal metabolic acidosis with CK elevated suspected seizure. Lactic acid elevated at 13 alcohol level less than 10 hydrated and lactic acid in metabolic acidosis resolved now UDS positive for cannabinoids all other negative. Head CT is negative. Cervical spine CT with moderate cervical spondylosis. Chest x-ray with no acute cardiopulmonary abnormality. Loaded with Sushma for possible seizure neurology has been consulted Plan for EEG and MRI # Metabolic acidosis this is resolved now # cough: chronic. cxr is negative. he is a chronic smoker. # chronic alcohol use: drinks beer daily since many years. no hx of withdrawal in the past # Hyperglycemia A1c came back normal. Hyperglycemia likely reactive # Mild leukocytosis could be reactive no signs of infection. Chest x-ray negative UA negative # Hypokalemia replace # fever episode post seizure yesterday no further recurrence. No neck rigidity on evaluation. Subjective Date/time seen: 01/27/22 12:29 Interval history: is much more lucid today. Wants to go home. Discussed finding with the patient. No chest pain or shortness of breath Review of Systems Review of Systems: All systems reviewed & are unremarkable except as noted in HPI and below Exam Narrative: APPEARANCE:? No acute distress, nontoxic, resting in bed EYES: EOMI, PERRLA HEENT: Normocephalic, atraumatic no neck rigidity RESPIRATORY: No respiratory distress Clear to auscultation bilaterally with no rhonchi wheezing or rales. CARDIOVASCULAR: regular rate and rhythm without murmurs rubs or gallops. ABDOMINAL: Soft, nontender, nondistended, no rebound or guarding MUSCULOSKELETAl: Moves all extremities. No clubbing, cyanosis or edema. NEURO: Awake and alert and oriented x3 no focal deficits moving all extremities. SKIN:: Warm, dry. No rashes lesions or abrasions PSYCHIATRIC: Normal affect/mood, Objective Data Vital Signs Vital Signs: Vital Signs - 24 hr 01/26/22 12:31 01/26/22 12:32 01/26/22 13:10 Temperature Pulse Rate 89 89 94 Respiratory Rate 30 H 30 H 29 H Blood Pressure 98/63 L Pulse Oximetry 98 Oxygen Delivery 01/26/22 14:30 01/26/22 16:00 01/26/22 17:44 Temperature 100.9 F H Pulse Rate 87 91 86 Respiratory Rate 27 H 18 Blood Pressure 107/68 109/74 Pulse Oximetry 99 98 Oxygen Delivery 01/26/22 22:00 01/26/22 20:00 01/27/22 00:00 Temperature 98.8 F Pulse Rate 77 88 71 Respiratory Rate 12 Blood Pressure 114/73 Pulse Oximetry 99 Oxygen Delivery 01/27/22 04:00 01/27/22 06:00 01/27/22 07:54 Temperature 98.5 F Pulse Rate 81 69 Respiratory Rate 12 Blood Pressure 117/71 Pulse Oximetry 97 94 Oxygen Delivery Room Air 01/27/22 09:25 Temperature Pulse Rate Respiratory Rate Blood Pressure Pulse Oximetry Oxygen Delivery Room Air Intake/Output Intake/Output: Intake & Output 01/24/22 01/25/22 01/26/22 01/27/22 23:59 23:59 23:59 23:59 Intake Total 2100 1580 Balance 2100 1580 Meds/Results Medications: Active Medications Generic Name Dose Route Start Last Admin Trade Name Freq PRN Reason Stop Dose Admin Acetaminophen 650 mg 01/26/22 15:41 Acetaminophen 325 Mg Tablet PO Q6H PRN Mild Pain (1-3) or Fever Levetiracetam 500 mg 01/26/22 21:00 01/27/22 09:25 Levetiracetam 500 Mg Tablet PO 500 mg Q12HR JIN Administration Radiology Results: ITS Impressions Head CT 01/26/22 09:57 IMPRESSION: 1. No acute intracranial abnormality. Cervical Spine CT 01/26/22 10:03 IMPRESSION: 1. No fracture. 2. Moderate cervical spondylosis. Chest X-Ray 01/26/22 10:03 IMPRESSION: 1. No acute cardiopulmonary a
[2022-01-27 14:00] VITALS: BP 133/73; PULSE 72; RESP 12; TEMP 37.2; O2SAT 100
--- NOTE | 2022-01-27 14:33 | PC.NURSE ---
Patient left AMA Dr Hanks and Deshawn notified. Patient did not want to stay he was very anxious.
--- NOTE | 2022-01-27 14:44 | PM.DS ---
DS: Admitting Diagnosis Discharge Date 01/27/2022 Admitting Diagnosis altered mental status DS: Discharge Diagnosis Discharge Diagnosis (1) New onset seizure: Code(s): R56.9 - Unspecified convulsions Status: Acute (2) Acute metabolic encephalopathy: Code(s): G93.41 - Metabolic encephalopathy Status: Acute DS: Summary Hospital Course Hospital Course: #? Altered mental status: The patient presented with altered mental status nose brought in by his . He also had seizure-like episode At home. He has no prior history of seizure in the past. Workup in the ER revealed metabolic acidosis? with CK elevated possibly representing recent seizure.Lactic acid Was elevated at 13 alcohol level less than 10 . He was hydrated and repeat lactic acid and metabolic acidosis resolved now . his UDS positive for cannabinoids all other negative.? Head CT is negative.? Cervical spine CT with moderate cervical spondylosis.? Chest x-ray with no acute cardiopulmonary abnormality.? He was Loaded with Keppra for possible seizure and was continued on Keppra 500 mg b.i.d.. neurology has been consulted . Brain MRI was ordered along with EEG. Brain MRI came back normal. He was recommended to get EEG done prior to discharge however he did wanted to wait for EEG to be done and hence left against medical advise. I did call him back and offered him to be on Keppra which was ordered to his pharmacy. He is also advised regarding no driving for at least 6 months seizure-free and to follow-up with neurologist as an outpatient basis. He stated that he has information about the neurologist as we saw during the hospital stay. # Metabolic acidosis this is resolved now # cough: chronic. cxr is negative. he is a chronic smoker. # chronic alcohol use: drinks beer daily since many years. no hx of withdrawal in the past # Hyperglycemia? A1c came back normal.? Hyperglycemia likely reactive # Mild leukocytosis could be reactive no signs of infection.? Chest x-ray negative? UA negative # Hypokalemia replace ?# fever episode post seizure yesterday no further recurrence.? No neck rigidity on evaluation. Time Spent with Patient Time attestation: Total time spent providing and/or coordinating discharge services: Exam Narrative: APPEARANCE:? No acute distress, nontoxic, resting in bed EYES: EOMI, PERRLA HEENT: Normocephalic, atraumatic no neck rigidity RESPIRATORY: No respiratory distress Clear to auscultation bilaterally with no rhonchi wheezing or rales. CARDIOVASCULAR: regular rate and rhythm without murmurs rubs or gallops. ABDOMINAL: Soft, nontender, nondistended, no rebound or guarding MUSCULOSKELETAl: Moves all extremities. No clubbing, cyanosis or edema. NEURO: Awake and alert and oriented x3 no focal deficits moving all extremities. SKIN:: Warm, dry. No rashes lesions or abrasions PSYCHIATRIC: Normal affect/mood, DS: Data Data Completed and Pending Labs on day of discharge: Labs from last 24 hours 01/27/22 01/27/22 01/26/22 05:49 05:49 16:35 WBC 8.8 RBC 4.33 L Hgb 14.3 Hct 40.6 L MCV 93.8 MCH 33.0 MCHC 35.2 RDW 13.7 Plt Count 330 MPV 8.7 Immature Gran % (Auto) 0.2 Neut % (Auto) 57.6 Lymph % (Auto) 29.7 Mckinley % (Auto) 9.3 H Eos % (Auto) 2.5 Baso % (Auto) 0.7 Lymph # (Auto) 2.61 Mckinley # (Auto) 0.8 H Eos # (Auto) 0.2 Baso # (Auto) 0.1 Abs Immat Gran (auto) 0.02 Absolute Neuts (auto) 5.1 Absolute Nucleated RBC 0.0 Nucleated RBC % 0.0 Sodium 142 Potassium 3.5 Chloride 109 H Carbon Dioxide 24 Anion Gap 9 BUN 10 Creatinine 1.10 Estim Creat Clear Calc Not Reportable Estimated GFR > 60 Glucose 86 Hemoglobin A1c Calcium 8.4 Magnesium 2.4 H Total Bilirubin 0.8 AST 46 ALT 26 Alkaline Phosphatase 78 Total Protein 6.0 L Albumin 3.5 SARS-CoV-2 IgG/IgM Ag?Rapid Negative 01/26/22 09:
== END 2022-01-27 14:30 | disposition left against medical advice (07) ==
LOC: ANHED 12:46 → ANH3MEDSUR 15:14
PROVIDERS: Admitting Provider Internal Medicine; Emergency Provider Emergency Medicine; Visit Provider Internal Medicine
DX: G93.41 Metabolic encephalopathy (principal); R74.02 Elevation of levels of lactic acid dehydrogenase [LDH]; E87.29 Other acidosis; M47.812 Spondylosis without myelopathy or radiculopathy, cervical region; D72.829 Elevated white blood cell count, unspecified; Z20.822 Contact with and (suspected) exposure to COVID-19; R73.9 Hyperglycemia, unspecified; E87.6 Hypokalemia; H90.5 Unspecified sensorineural hearing loss; F17.210 Nicotine dependence, cigarettes, uncomplicated; F10.90 Alcohol use, unspecified, uncomplicated; Y90.0 Blood alcohol level of less than 20 mg/100 ml; F12.90 Cannabis use, unspecified, uncomplicated; Z79.891 Long term (current) use of opiate analgesic; Z79.899 Other long term (current) drug therapy
CPT/HCPCS: 36415; 70450; 70551; 71045; 72125; 80048; 80053; 80307; 81001; 82550; 83036; 83605; 83735; 84443; 85025; 85610; 85730; 87426; 93005; 96361; 96374; 99285; A9270; C9803; G0378; J1953; J7030

== ENCOUNTER 2022-02-12 12:33 | Outpatient (CLI) | payer BC, OTHER, SELFPAY ==
--- NOTE | 2022-02-13 13:01 | WPDNEUROLOGY ---
Neurology EEG Report General Information Date of Study: 02/12/22 TEST Routine EEG DIAGNOSIS New onset seizure CONDITION OF RECORDING Awake, drowsy, asleep EEG NUMBER [id number] CLINICAL HISTORY Patient was admitted earlier this month due to concerns for seizure. He had a witnessed event described as clenching his arm and grabbing his head . EEG DESCRIPTION During the awake state with eyes closed the background consists of 8 Hz posterior dominant rhythm which attenuates appropriately with eye opening. The recording is continuous. There is a well developed anterior-posterior gradient. No significant asymmetries of background activities are noted. With drowsiness there is was waxing and waning of the dominant rhythm with eventual replacement by a theta range activity. As the patient enters stage II sleep, symmetrical spindles and K-complexes are present. Arousal is unremarkable. There are no epileptiform discharges or seizures during this recording. Photic stimulation was performed which did not elicit an abnormal response. IMPRESSION This is a normal routine EEG recorded in awake, drowsy, and asleep states. There are no electrographic seizures identified, nor are there any epileptiform discharges. Please note that a normal EEG cannot exclude a seizure disorder. Clinical correlation is recommended.
== END 2022-02-12 12:34 | disposition home or self-care (01) ==
LOC: ANHNEURO 12:34
PROVIDERS: Visit Provider Student in an Organized Health Care Education/Training Program
DX: R56.9 Unspecified convulsions (principal)
CPT/HCPCS: 95816

== ENCOUNTER 2022-04-13 05:40 | Emergency (ER) | payer OTHER, BC, SELFPAY ==
[2022-04-13 05:36] VITALS: BP 113/86; PULSE 96; RESP 18; O2SAT 92
--- NOTE | 2022-04-13 05:46 | ED.GENADULT ---
HPI - General Adult General Chief complaint: Seizure Stated complaint: SEIZURE History of Present Illness HPI narrative: 57-year-old male with history of seizures that started back in January presenting the emergency department for evaluation of 2 seizures tonight. states that the patient did have a seizure back in the summer and had a second seizure in January. Patient had initially been prescribed Keppra but states he is no longer taking this. Patient did have a seizure tonight and was postictal. EMS arrived to transport the patient he became more alert and patient declined transport. Tonight patient had a another seizure and patient was transported to the emergency room by EMS. Related Data Allergies Allergy/AdvReac Type Severity Reaction Status Date / Time No Known Allergies Allergy Verified 10/05/19 17:58 Review of Systems Review of Systems: CONSTITUTIONAL: Denies fever, chills, or sweats. EYES: Denies visual changes, redness, or discharge. ENT: Denies rhinorrhea, congestion, sore throat, or otalgia. CARDIOVASCULAR: Denies chest pain, palpitations, or edema. RESPIRATORY: Denies cough or dyspnea. GASTROINTESTINAL: Denies abdominal pain, nausea, vomiting, or diarrhea. GENITOURINARY: Denies dysuria or hematuria. SKIN: Denies rash or itching. MUSCULOSKELETAL: Denies back pain, joint pain, or myalgia. NEUROLOGIC: See HPI [facility] Past Medical History Medical History (Updated 04/13/22 @ 07:24 by Mariano Alberts MD) Bilateral sensorineural hearing loss Surgical History Surgical History No significant past surgical history Family History Family History Other No significant family history Social History Social History Smoking packs per day: 1 Smoking cigarettes per day: 20.0 Years smoked: 40 Smoking pack-years: 40.00 Smoking status: Current every day smoker Tobacco type: cigarettes Alcohol intake: current Drinks per week: 28 Substance use: current Substance use type: marijuana Other substance usage details: daily Last use: 01/25/2022 Gender identity (if verbalized by the patient): Male Spiritual care concerns: No Exam Narrative: APPEARANCE: Well appearing, no pain, no distress, well-nourished. HEAD: normocephalic, atraumatic. EYES: PERRLA/EOMI, conjunctivae clear. NOSE: Normal no drainage EARS:TMS clear with good light reflex. THROAT: Pharynx clear, no exudate. NECK: Supple. No adenopathy, no masses. RESPIRATORY: Airway patent, respirations nonlabored. Clear to auscultation bilaterally, no rales, rhonchi, wheezing. CARDIOVASCULAR: Regular rate and rhythm without murmurs rubs or gallops. ABDOMINAL: Soft, nontender, nondistended, normal bowel sounds MUSCULOSKELETAL: Moves all extremities. Strength/ROM intact, No edema, No calf tenderness. NEURO: Alert but still postictal on initial evaluation. Cranial nerves II through XII intact. Grossly intact SKIN: Warm, dry. Normal Color Course Course Emergency Course: Patient is no longer postictal. Patient is now alert oriented and appropriate. Patient is declining any additional imaging. Patient is declining to stay for any further work-up. Patient is agreeable to starting Keppra and states he will have close follow-up with neurology. All questions and concerns were addressed. Patient did decline the head CT. Patient was able to ambulate at his baseline. and mother were updated on the results of the work-up and the importance that the patient continue to take his Keppra. Patient does have a leukocytosis of 16.8 but this is thought to be reactive. Patient did have a lactic acid of 11.3 but patient was treated with 2 L of normal saline. Patient is requesting discharge from the emergency department. Vital Signs Vital signs: Vital Signs Pulse Rate 96 04/13/22
[2022-04-13] MEDS: SODIUM CHLORIDE 0.9% IV 1,000 ML 999 ML IV CONT ×2 (05:54→07:38)
[2022-04-13] MEDS: levETIRAcetam 1000MG/NACL100ML 1,000 MG/100 ML BAG 400 MG IVPB (05:55)
[2022-04-13 05:57] LABS: Basophils Absolute Auto 0.1 K/mm3 (0.0-0.1); Basophils Percent Auto 0.6 % (0.2-1.2); Eosinophils Absolute Auto 0.2 K/mm3 (0-0.3); Eosinophils Percent Auto 1.2 % (0-4.4); Hematocrit 41.2 % (42.0-52.0); Hemoglobin 14.3 g/dL (14.0-18.0); Immature Granulocyte Percent A 0.6 % (0-0.5); Lymphocytes Percent Auto 16.6 % (18.3-44.2); Mean Corpuscular HGB Conc 34.7 g/dl (32-36); Mean Corpuscular Hemoglobin 32.4 pg (26-34); Mean Corpuscular Volume 93.4 fl (80-100); Mean Platelet Volume 8.7 fl (7.4-10.4); Monocytes Absolute Auto 0.9 K/mm3 (0.1-0.6); Monocytes Percent Auto 5.4 % (2.6-8.5); Neutrophils Absolute Auto 12.7 K/mm3 (1.3-6.7); Neutrophils Percent Auto 75.6 % (45.5-73.1); Platelet Count Result 399 k/mm3 (150-375); Red Blood Count 4.41 M/mm3 (4.6-6.20); Red Cell Distribution Width 13.6 % (11.5-14.5); White Blood Count 16.8 K/mm3 (4.5-10.0)
[2022-04-13 06:10] LABS: Lactic Acid Reflex 11.3 mmol/L (0.7-2.0)
[2022-04-13 06:11] VITALS: PULSE 100; RESP 15; TEMP 36.5
[2022-04-13 06:11] LABS: Ethanol < 10 mg/dL (<10)
[2022-04-13 06:15] LABS: Albumin Level 4.6 g/dL (3.5-5.1); Alkaline Phosphatase 87 U/L (38-126); Anion Gap 21 mmol/L (8-16); Aspartate Amino Transferase 37 U/L (17-59); Bilirubin,Total 0.4 mg/dL (0.2-1.3); Blood Urea Nitrogen 16 mg/dL (9-20); Carbon Dioxide 13 mmol/L (22-30); Chloride 105 mmol/L (98-107); Estimated CRCL calculation 61 ml/min; Estimated Glomerular Filt Rate > 60; Glucose 177 mg/dL (65-110); Potassium 3.5 mmol/L (3.4-5.0); Sodium 139 mmol/L (137-145)
[2022-04-13 06:18] LABS: Alanine Aminotransferase 40 U/L (6-50)
[2022-04-13 06:19] LABS: Add Urine Microscopic? YES; Appearance Urine Clear (Clear); Bilirubin Urine Negative (Negative); Blood Urine 2+ (Negative); Color Urine Light Yellow (Yellow); Glucose Urine UA Trace mg/dL (Negative); Ketones Urine Negative (Negative); Leukocyte Esterase Ur Negative LEU/UL (Negative); Nitrate Urine Negative (Negative); Protein Urine Trace mg/dL (Negative); Specific Grav Ur >= 1.030 (1.001-1.035); Urobilinogen Urine 0.2 mg/dL (<2.0)
[2022-04-13 06:32] LABS: Bacteria Urine Trace /hpf; Mucus Urine Rare /lpf; RBC Urine 0-2 /hpf (0-2)
[2022-04-13 06:35] LABS: Amphetamine Screen Urine Negative (Negative); Barbiturate Screen Urine Negative (Negative); Benzodiazepines Screen Urine Negative (Negative); Cannabinoid Screen Urine Positive (Negative); Cocaine Screen Urine Negative (Negative); Methadone Screen Urine Negative (Negative); Opiate Screen Urine Negative (Negative); Phencyclidine Screen Urine Negative (Negative)
[2022-04-13 08:55] LABS: Reflex Lactic Acid Yes or No Add Lactic
== END 2022-04-13 08:15 | disposition home or self-care (01) ==
PROVIDERS: Emergency Provider Emergency Medicine
DX: R56.9 Unspecified convulsions (principal); H90.3 Sensorineural hearing loss, bilateral; F17.210 Nicotine dependence, cigarettes, uncomplicated
CPT/HCPCS: 36415; 80053; 80307; 81001; 83605; 85025; 96361; 96365; 99284; J1953; J7030

== ENCOUNTER 2022-08-21 09:42 | Observation (INO) | payer OTHER, BC, SELFPAY ==
[2022-08-21] VITALS (29 sets, daily range): BP systolic 94–140; BP diastolic 41–90; PULSE 80–161; RESP 9–38; TEMP 36.5–37.9; O2SAT 82–100; BMI 19.8
--- NOTE | ~2022-08-21 | XR_ITS ---
EXAMINATION: XR chest 1V portable DATE: 08/21/2022 13:15 INDICATION: Seizure. TECHNIQUE: A single frontal view of the chest was obtained on 2 radiographs. COMPARISON: Chest single view 01/26/2022, chest CT 09/04/2018 FINDINGS: There are lucencies in the upper lungs, consistent with emphysema. There is a chronic small loculated right pleural effusion. There are chronic airspace opacities in right mid and lower lung z ones. No pneumothorax. The heart size is normal. There are surgical clips overlying right axilla. IMPRESSION: 1. Emphysema. 2. Chronic small loculated right pleural effusion. 3. Chronic airspace opacities in right mid and lower lung zones, consistent with scarring. Reviewed, dictated and finalized at location A. IMPRESSION: 1. Emphysema. 2. Chronic small loculated right pleural effusion. 3. Chronic airspace opacities in right mid and lower lung zones, consistent wit h scarring.
--- NOTE | ~2022-08-21 | CT_ITS ---
EXAMINATION: CT brain wo con DATE: 08/21/2022 11:49 INDICATION: Seizures TECHNIQUE: Computed tomography (CT) of the head was performed without intravenous contrast. Sagittal and coronal reconstructions were performed. The mA was adjusted according to patient size. Iterative reconstruction technique was employed. The dose-length product was 1135.00 mGy-cm. COMPARISON: head CT dated 01/26/2022 and MRI dated 01/27/2022 FINDINGS: No acute intracranial hemorrhage, acute infarction or abnormal extra axial fluid collection. Ventricl es are normal and symmetric. No mass/mass effect. The orbits, paranasal sinuses and mastoid air cells are normal. IMPRESSION: 1. No acute intracranial process. Reviewed, dictated and finalized at location B.
--- NOTE | 2022-08-21 09:50 | ECG_ITS ---
Measurements Intervals [place] Rate: 86 P: 78 HI: 152 QRS: 78 QRSD: 83 T: 76 QT: 340 QTc: 407 Interpretive Statements SINUS RHYTHM BASELINE WANDER- V6 NORMAL ECG COMPARED TO ECG 01/26/2022 09:33:15 NO SIGNIFICANT CHANGES Electronically Signed On 08-21-2022 14:21:55 CDT by Jeremy Singh D.O.
[2022-08-21] MEDS: LORazepam INJ (*CRX) 2 MG/ML VIAL 0.5 MG IV PUSH (10:14)
[2022-08-21] MEDS: levETIRAcetam 1000MG/NACL100ML 1,000 MG/100 ML BAG 400 MG IVPB (10:21)
[2022-08-21] MEDS: SODIUM CHLORIDE 0.9% IV 1,000 ML 999 ML IV CONT (10:23)
[2022-08-21] MEDS: LORazepam INJ (*CRX) 2 MG/ML VIAL 1 MG IV PUSH (11:12)
--- NOTE | 2022-08-21 11:29 | PC.NURSE ---
Labs obtained and sent at this time. CT called, pt on portable monitor, to go to CT with RN and tech now. Pt remains post-ictal and very drowsy currently.
[2022-08-21 11:35] LABS: Basophils Absolute Auto 0.1 K/mm3 (0.0-0.1); Basophils Percent Auto 0.5 % (0.2-1.2); Eosinophils Percent Auto 0.2 % (0-4.4); Hematocrit 44.5 % (42.0-52.0); Immature Granulocyte Absolute 0.06 K/mm3 (0.00-0.031); Immature Granulocyte Percent A 0.5 % (0-0.5); Lymphocytes Absolute Auto 1.05 K/mm3 (0.9-3.2); Lymphocytes Percent Auto 8.6 % (18.3-44.2); Mean Corpuscular HGB Conc 33.7 g/dl (32-36); Mean Corpuscular Hemoglobin 32.6 pg (26-34); Mean Corpuscular Volume 96.7 fl (80-100); Mean Platelet Volume 8.6 fl (7.4-10.4); Monocytes Absolute Auto 0.6 K/mm3 (0.1-0.6); Neutrophils Absolute Auto 10.5 K/mm3 (1.3-6.7); Neutrophils Percent Auto 85.2 % (45.5-73.1); Platelet Count Result 368 k/mm3 (150-375); Red Cell Distribution Width 13.9 % (11.5-14.5); White Blood Count 12.3 K/mm3 (4.5-10.0)
[2022-08-21 11:59] LABS: Ethanol < 10 mg/dL (<10)
--- NOTE | 2022-08-21 12:18 | PC.NURSE ---
Pt requiring continuous RN intervention up until this time. Pt has had two additional seizures since arriving to the ED (total of four today). First seizure at 0958, preceded by a left gaze deviation x 45 seconds, tonic clonic movements x 1 minute. Second seizure at 1044 preceded by a right gaze + nystagmus x 90 seconds, seizure then lasted 50 seconds. Pt suctioned and placed on non rebreather with both seizures. Patient has never returned to baseline mental status since second seizure today. While patient post-ictal, pt becomes very restless, required 4+ people to keep patient in bed. Pt was placed in soft restraints at 1015 this am per MD Doll for patient safety. Sitter was initiated and has been at patient's bedside since arrival to ED, discussed where all restraint connection points are at for easy removal in case of seizure-like activity. Due to patient's restlessness, was very difficult to obtain labs. Labs took 6 attempts by two RN's and multiple people assisting with holding patient still. Head CT prolonged due to restlessness and being uncooperative as well, was completed as soon as possible. Pt now resting comfortably, arouses to touch. Family at bedside.
[2022-08-21 12:56] LABS: Amphetamine Screen Urine Negative (Negative); Barbiturate Screen Urine Negative (Negative); Benzodiazepines Screen Urine Negative (Negative); Cannabinoid Screen Urine Positive (Negative); Cocaine Screen Urine Negative (Negative); Methadone Screen Urine Negative (Negative); Opiate Screen Urine Negative (Negative); Phencyclidine Screen Urine Negative (Negative)
--- NOTE | 2022-08-21 13:07 | PC.NURSE ---
Lab called for assistance with rejected labs. Facing End Trimmer unsure if able to come down and draw labs d/t work load on the floor. To attempt redraw.
[2022-08-21 13:16] LABS: Appearance Urine Clear (Clear); Bacteria Urine None Seen /hpf; Bilirubin Urine Negative (Negative); Blood Urine 1+ (Negative); Color Urine Yellow (Yellow); Glucose Urine UA Negative (Negative); Ketones Urine Negative (Negative); Leukocyte Esterase Ur Negative LEU/UL (Negative); Mucus Urine Present /lpf; Nitrate Urine Negative (Negative); Protein Urine Trace mg/dL (Negative); RBC Urine 0-2 /hpf (0-2); Specific Grav Ur 1.012 (1.001-1.035); Squamous Epithelial Cell Urine None seen /hpf (Few); Uric Acid Crystals Urine Present /hpf; Urobilinogen Urine 0.2 mg/dL (<2.0); WBC Urine 0-5 /hpf
[2022-08-21 13:22] LABS: Add Urine Microscopic? YES
[2022-08-21 14:46] LABS: Alanine Aminotransferase 28 U/L (6-50); Albumin Level 3.8 g/dL (3.5-5.1); Alkaline Phosphatase 111 U/L (38-126); Anion Gap 7 mmol/L (8-16); Aspartate Amino Transferase 37 U/L (17-59); Bilirubin,Total 0.5 mg/dL (0.2-1.3); Blood Urea Nitrogen 13 mg/dL (9-20); Calcium 8.6 mg/dL (8.4-10.2); Carbon Dioxide 22 mmol/L (22-30); Chloride 109 mmol/L (98-107); Estimated Glomerular Filt Rate > 60; Glucose 91 mg/dL (65-110); Potassium 3.7 mmol/L (3.4-5.0); Sodium 138 mmol/L (137-145)
--- NOTE | 2022-08-21 15:46 | ED.SEIZURE ---
HPI - Seizure General Chief Complaint: Seizure Stated Complaint: seizure History of Present Illness HPI Narrative: Patient is a 57-year-old male who presents to the ER status post seizure. Patient had a seizure earlier this morning and refused ambulance service. He then took 750 mg of Keppra. Patient then had a second seizure at home and called EMS again and he was transported. Patient arrives and is postictal. Patient then had a third seizure and Keppra was ordered. Patient was oriented x3 after the second seizure but was still not directable. reports no change in patient's health reports he is compliant with home medications. His neurologist is Dr. Hess. Seizure History: Yes (02/07) Related Data Allergies Allergy/AdvReac Type Severity Reaction Status Date / Time No Known Allergies Allergy Verified 04/28/22 15:17 Review of Systems Review of Systems: ROS unobtainable: Yes unobtainable due to mental status PMFSH Past Medical History Medical History (Updated 08/21/22 @ 16:32 by Mau Doll MD) Bilateral sensorineural hearing loss Seizures Surgical History Surgical History No significant past surgical history Family History Family History Other No significant family history Social History Social History (Updated 04/28/22 @ 15:19 by Rashmi Viramontes MA) Smoking packs per day: 1 Smoking cigarettes per day: 20.0 Years smoked: 40 Smoking pack-years: 40.00 Smoking status: Current every day smoker Tobacco type: cigarettes Alcohol intake: current Drinks per week: 28 Substance use: current Substance use type: marijuana Other substance usage details: daily Last use: 01/25/2022 Lack of Transportation: No Lack of Food: Never True Current Housing: I Have Housing Concerned About Future Housing: No Difficulty Paying Gas/Electric Bills: No Difficulty Paying for Meds: No Education: Bachelor's Degree Difficulty w/ Childcare or Family Care: No Gender identity (if verbalized by the patient): Male Spiritual care concerns: No Exam Narrative: GENERAL: Well-appearing, well-nourished, and in no acute distress. HEAD: Normocephalic, atraumatic. EYES: PERRL and EOMI. ENT: Mucous membranes moist. CHEST: Clear to auscultation. No respiratory distress. HEART: Regular rate and rhythm. Normal peripheral pulses. ABDOMEN: Soft, nontender, nondistended. EXTREMITIES: Normal range of motion. No edema. SKIN: Warm, dry, no rash. NEURO: Alert and oriented x3, then seized and altered. PSYCH: Normal mood and affect. Course Course Emergency Course: Patient has received 1 g of Keppra in the ER as well as 1.5 mg of Ativan. After prolonged. Patient is now at neurologic baseline. He has been accepted for admission by hospitalist service and Dr. Purcell with neurology will consult. Is recommended patient receive Keppra 1000 mg twice a day. Vital Signs Vital signs: Vital Signs Pulse Rate 104 H 08/21/22 09:57 Respiratory Rate 14 08/21/22 09:57 Pulse Rate 101 H 08/21/22 15:16 Respiratory Rate 29 H 08/21/22 15:16 Blood Pressure 104/54 L 08/21/22 15:01 Pulse Oximetry 99 08/21/22 14:47 Oxygen Delivery Room Air 08/21/22 15:44 Oxygen Flow Rate 15 08/21/22 10:56 MDM - Seizure Lab Data 08/21/22 11:26 08/21/22 13:51 Labs: Lab Results 08/21/22 08/21/22 08/21/22 Range/Units 11:26 12:17 13:51 WBC 12.3 H (4.5-10.0) K/mm3 RBC 4.60 (4.6-6.20) M/mm3 Hgb 15.0 (14.0-18.0) g/dL Hct 44.5 (42.0-52.0) % MCV 96.7 (80-100) fl MCH 32.6 (26-34) pg MCHC 33.7 (32-36) g/dl RDW 13.9 (11.5-14.5) % Plt Count 368 (150-375) k/mm3 MPV 8.6 (7.4-10.4) fl Immature Gran % (Auto) 0.5 (0-0.5) % Neut % (Auto) 85.2 H (45.5-73.1) % Lymph % (Au
--- NOTE | 2022-08-21 17:22 | PC.NURSE ---
Family updated on patient going upstairs. Patient sleeping comfortably in stretcher.
--- NOTE | 2022-08-21 17:49 | ADMGEN ---
This patient, Soo Murillo Sr., was admitted to [facility] Surg Room 324-01. Patient/family oriented to hospital policies and general routines including ID bracelet, bed and alarms, visiting hours, pain management, procedures, bathroom and other care routines, personal items, smoking policy, room service/diet, and visiting hours. Information on how to activate the Rapid Response Team has been discussed. Patient/Family are encouraged to report perceived risks to care and to ask questions if they do not understand what they are told or what they should do.
--- NOTE | 2022-08-21 19:05 | PM.IMHP ---
H&P: HPI History of Present Illness Date/Time: 08/21/22 17:15 Chief Complaint: Seizures. Narrative: This is a 57-year-old male smoker with history of seizures to presented to the emergency department via EMS from home for evaluation after he had several seizures. The patient is still a bit postictal but is able to provide some history. His mother and provides additional information. He had a seizure at about 08:00 this morning which lasted approximately 1 minute. Family members called EMS and on their arrival he was alert and did not wish to be transported. They witnessed him taking his morning Keppra dose prior to leaving the home. According to the he had two further seizures and she called EMS again. On arrival to the ED he was reportedly postictal and he had another 1 minute tonic clonic seizure while in the emergency department preceded by a 1 minute ?aura? with gaze deviation. He remains a bit post local at the time my evaluation but is becoming more oriented. He and his state that he is compliant with his Keppra he has not had any missed doses. He denies headache, vision changes, vertigo, chest pain, shortness a breath, nausea, and vomiting. He has not had any recent falls or head trauma. No cold or flu symptoms. No sick contacts. In the ED: Vital signs were stable on arrival though he does have a low-grade temperature this evening of 100.2? F. WBC count was 12.3 and the remainder of his labs were really unremarkable. Urine drug screen was positive for cannabinoids. Brain CT and chest x-ray showed no acute processes. He was loaded with a gram of Keppra and he is being admitted in this setting for close monitoring and neurology consultation given breakthrough seizures despite medication compliance. Review of Systems Review of Systems: Twelve systems were reviewed and are negative except for as per HPI. [facility] Past Medical History Medical History (Updated 08/21/22 @ 22:40 by Melissa Guevara PA-C) Bilateral sensorineural hearing loss Chronic obstructive pulmonary disease Seizures (01/2022) Surgical History Surgical History No significant past surgical history Family History Family History Other No significant family history Social History Social History (Updated 08/21/22 @ 22:37 by Melissa Guevara PA-C) Social History: Surrogate medical decision maker: Maverick Murillo, spouse. Code status: Full code. Smoking packs per day: 1 Smoking cigarettes per day: 20.0 Years smoked: 40 Smoking pack-years: 40.00 Smoking status: Current every day smoker Tobacco type: cigarettes Alcohol intake: current Drinks per week: 10 Substance use: current Substance use type: marijuana Other substance usage details: daily Last use: 01/25/2022 Lack of Transportation: No Lack of Food: Never True Current Housing: I Have Housing Concerned About Future Housing: No Difficulty Paying Gas/Electric Bills: No Difficulty Paying for Meds: No Currently Unemployed: No Education: Don't Know Difficulty w/ Childcare or Family Care: No Additional living arrangements comments: Lives with spouse in [place]. 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 Spiritual care concerns: No Meds Home Medications and Allergies Home Medications Medication Instructions Recorded Confirmed Type levetiracetam 1,000 mg tablet 1,000 mg PO BID #60 tabs 08/22/22 Rx (Keppra) Allergies Allergy/AdvReac Type Severity Reaction Status Date / Time No Known Allergies Allergy Verified 08/21/22 17:50 Vital Signs Vital Signs - 24 hr 08/21/22 09:57 08/21/22 10:00 08/21/22 10:01 Temperature Pulse Rate 104 H 161 H Respiratory Rate 14 32 H 38 H Blood Pressure 140/90 Pulse Oximetry 88 L 98 Oxygen Delivery Oxygen Flow Rate
[2022-08-21] MEDS: ACETAMINOPHEN 325 MG TABLET 650 MG PO (19:18)
[2022-08-21] MEDS: levETIRAcetam 500 MG TABLET 1000 MG PO (20:13)
[2022-08-22] VITALS: PULSE 89
[2022-08-22 04:00] VITALS: PULSE 84
[2022-08-22 06:00] VITALS: BP 96/58; PULSE 87; RESP 20; TEMP 36.6; O2SAT 98
[2022-08-22 06:34] LABS: Hematocrit 39.5 % (42.0-52.0); Hemoglobin 13.9 g/dL (14.0-18.0); Mean Corpuscular HGB Conc 35.2 g/dl (32-36); Mean Corpuscular Hemoglobin 32.8 pg (26-34); Mean Corpuscular Volume 93.2 fl (80-100); Mean Platelet Volume 8.7 fl (7.4-10.4); Platelet Count Result 333 k/mm3 (150-375); Red Blood Count 4.24 M/mm3 (4.6-6.20); Red Cell Distribution Width 13.6 % (11.5-14.5)
[2022-08-22 06:54] LABS: Alanine Aminotransferase 25 U/L (6-50); Albumin Level 3.7 g/dL (3.5-5.1); Alkaline Phosphatase 92 U/L (38-126); Anion Gap 6 mmol/L (8-16); Aspartate Amino Transferase 35 U/L (17-59); Bilirubin,Total 0.7 mg/dL (0.2-1.3); Blood Urea Nitrogen 11 mg/dL (9-20); Calcium 8.5 mg/dL (8.4-10.2); Carbon Dioxide 23 mmol/L (22-30); Chloride 108 mmol/L (98-107); Estimated CRCL calculation 73 ml/min; Estimated Glomerular Filt Rate > 60; Glucose 79 mg/dL (65-110); Magnesium 2.5 mg/dL (1.6-2.3); Potassium 3.4 mmol/L (3.4-5.0); Sodium 137 mmol/L (137-145)
[2022-08-22 08:00] VITALS: PULSE 86
[2022-08-22] MEDS: levETIRAcetam 500 MG TABLET 1000 MG PO (08:21)
--- NOTE | 2022-08-22 09:49 | PC.NURSE ---
Patient attempted to leave floor with IV intact and security monitor on, security was able to get patient back onto floor. Patient escorted back into room. Patient refusing bed alarms or chair alarms. Patient educated on fall risk and seizure precautions. Patient very anxious to leave. Hospitalist made aware.
--- NOTE | 2022-08-22 09:50 | PC.NURSE ---
This RN was made aware per visitor that security noted that there was a potential patient getting on an elevator. Floor RN discussing with Charge nurse at the time of notification that floor RN had some concerns that patient may leave AMA. Upon entering room, patient was not noted to be present in room. Security and this RN greeted patient at main entrance one. IV present. Patient stated he wanted a cigarette and was questioning what he was still doing here and was hoping to go home. This nurse educated patient on smoking policy and notified we can ask the hospitalist for a nicotine patch or nicotine gum. Patient denied. Nurse also educated patient that the floor RN is updating the hospitalist and will update patient with any updates to care. Patient voiced understanding and willingly walked to room. IV still present.
--- NOTE | 2022-08-22 10:45 | PM.DS ---
DS: Admitting Diagnosis Discharge Date 08/22/22 1045 Admitting Diagnosis Current seizure DS: Discharge Diagnosis Discharge Diagnosis (1) Breakthrough seizure: Code(s): G40.919 - Epilepsy, unspecified, intractable, without status epilepticus Status: Acute Assessment and Plan: Patient states compliance with his home Keppra. Reason for breakthrough seizures is not entirely clear. He is not taking any other medication and denies [id number] supplementation and drug use aside from cannabinoids which has been ongoing. He drinks about 10 alcoholic beverages a week and has never had issues with alcohol withdrawal or seizures. He was loaded with 1000 mg of Keppra in the emergency department. Neurology has been consulted and their put is greatly appreciated. Spoke with Neurology who recommends increasing the dose to 1 g b.i.d. and to follow-up with his neurologist. He also mentioned that the patient is not able to drive. Spoke with the patient who stated that he was not really interested dose increase however he knows that he has increased at this point. (2) Leukocytosis: Code(s): D72.829 - Elevated white blood cell count, unspecified Status: Acute Assessment and Plan: Likely a stress response related to seizures. He gives no history to suggest active infection. WBC stable at 10 (3) Chronic obstructive pulmonary disease: Code(s): J44.9 - Chronic obstructive pulmonary disease, unspecified Status: Acute Assessment and Plan: No acute issues. DS: Summary Hospital Course Hospital Course: Patient is a 57-year-old male with a past medical history of seizures, tobacco abuse who presented to the ED with complaints several seizures. The patient stated that he was taking his medications and that he does get an aura smile that he associates with his seizures and he was getting those spells. The last time he was at the neurologist office they wanted to increase his dose however he stated that he was not really interested in that time however at this point he does know that he needs to do it now. CT CT of the brain was performed and showed no acute process. In the ED patient was given a g of Keppra and patient has had no further symptoms of seizures. Labs and vital signs are stable today. Patient did exhibit a small fever and mild leukocytosis however is resolved at this point. Patient is very anxious and would like to be discharged. Spoke with Dr. Purcell who agreed with this and stated that he can go as long as he follows up with his neurologist and increases his dose. Patient agreed to this and all questions were answered. Status at Discharge Functional status at discharge: independent ambulation Overall status at discharge: patient is progressing back to baseline Time Spent with Patient Time attestation: Total time spent providing and/or coordinating discharge services: 40 minutes Time spent: Greater than 30 minutes Specific discharge activities: Diagnostic testing, chart review, developing a treatment plan, education, care coordination documentation, physical exam, result review Exam Narrative: General: well-nourished, well-appearing 57-year-old male, pacing in the room, comfortable, NARD Neuro: awake, alert and oriented x4, speech clear, no focal neuro deficits noted HEENMT: normocephalic, atraumatic, EOMI, sclerae anicteric, moist oral mucosa Respiratory: Clear to auscultation bilaterally without crackles, rhonchi or wheezes, nonlabored breathing Cardio: regular rate, regular rhythm with S1-S2 Abdomen: nondistended, normoactive bowel sounds, soft, nontender to palpation Extremities: no edema, erythema, or tenderness to palpation, DP pulses 2+ bilaterally Skin: no rashes or lesions, warm and dry Psych: appropriate mood and affect, judgment and insight intact DS: Data Data Completed and Pending Labs on day of discharge: Labs from last 24 hours 08/22/22 08/21/2208/21
--- NOTE | 2022-08-22 10:51 | PC.NURSE ---
Pt. refusing to wear the traffic monitor specialist at this time.
== END 2022-08-22 11:20 | disposition home or self-care (01) ==
LOC: ANHED 16:32 → ANH3MEDSUR 08-22 11:12
PROVIDERS: Physician Assistant; Admitting Provider Student in an Organized Health Care Education/Training Program; Emergency Provider Emergency Medicine; PCP Student in an Organized Health Care Education/Training Program; Visit Provider Chiropractor
DX: G40.919 Epilepsy, unspecified, intractable, without status epilepticus (principal); D72.829 Elevated white blood cell count, unspecified; J43.9 Emphysema, unspecified; J90 Pleural effusion, not elsewhere classified; F17.210 Nicotine dependence, cigarettes, uncomplicated; F10.90 Alcohol use, unspecified, uncomplicated; Y90.0 Blood alcohol level of less than 20 mg/100 ml; F12.90 Cannabis use, unspecified, uncomplicated; Z79.899 Other long term (current) drug therapy
CPT/HCPCS: 36415; 70450; 71045; 80053; 80307; 81001; 83735; 85025; 85027; 93005; 96361; 96365; 96375; 96376; 99285; A9270; G0378; J1953; J2060; J7030

== ENCOUNTER 2022-10-18 00:14 | Emergency (ER) | payer OTHER, BC, SELFPAY ==
[2022-10-18] VITALS (13 sets, daily range): BP systolic 110–131; BP diastolic 66–77; PULSE 65–89; RESP 17–27; TEMP 36.9–37; O2SAT 79–100
--- NOTE | 2022-10-18 00:50 | PC.NURSE ---
pt is axox4. abc are wnl nad. airway is patent,spontaneous and self maintained. iv established and locked. pt placed on first mate NSR noted w/o ectopy noted. pt is demanding and is [place] [facility] [facility]. sts that sz was 1 minute. pt didn't have any incontinence. pt was ambulatory to restroom. sz pads placed
--- NOTE | 2022-10-18 01:45 | PC.NURSE ---
is getting very angry about wait time for Dr. is standing at the nurse desk and tapping her fingers on the desk
[2022-10-18] MEDS: SODIUM CHLORIDE 0.9% IV 1,000 ML 999 ML IV CONT (02:04)
[2022-10-18 02:28] LABS: Basophils Absolute Auto 0.1 K/mm3 (0.0-0.1); Basophils Percent Auto 0.8 % (0.2-1.2); Eosinophils Absolute Auto 0.3 K/mm3 (0-0.3); Eosinophils Percent Auto 3.9 % (0-4.4); Hematocrit 45.3 % (42.0-52.0); Immature Granulocyte Absolute 0.02 K/mm3 (0.00-0.031); Immature Granulocyte Percent A 0.3 % (0-0.5); Lymphocytes Absolute Auto 1.51 K/mm3 (0.9-3.2); Lymphocytes Percent Auto 20.1 % (18.3-44.2); Mean Corpuscular HGB Conc 35.3 g/dl (32-36); Mean Corpuscular Hemoglobin 32.7 pg (26-34); Mean Corpuscular Volume 92.4 fl (80-100); Mean Platelet Volume 9.1 fl (7.4-10.4); Monocytes Absolute Auto 0.5 K/mm3 (0.1-0.6); Monocytes Percent Auto 6.9 % (2.6-8.5); Neutrophils Absolute Auto 5.1 K/mm3 (1.3-6.7); Platelet Count Result 334 k/mm3 (150-375); Red Cell Distribution Width 13.2 % (11.5-14.5); White Blood Count 7.5 K/mm3 (4.5-10.0)
[2022-10-18 03:54] LABS: Anion Gap 6 mmol/L (8-16); Blood Urea Nitrogen 14 mg/dL (9-20); Calcium 8.6 mg/dL (8.4-10.2); Carbon Dioxide 22 mmol/L (22-30); Chloride 106 mmol/L (98-107); Estimated CRCL calculation 85 ml/min; Estimated Glomerular Filt Rate > 60; Glucose 99 mg/dL (65-110); Magnesium 2.4 mg/dL (1.6-2.3); Potassium 3.9 mmol/L (3.4-5.0); Sodium 134 mmol/L (137-145)
--- NOTE | 2022-10-18 04:03 | ED.GENADULT ---
HPI - General Adult General Chief complaint: Seizure Stated complaint: seizure Time Seen by Provider: 10/18/22 01:57 History of Present Illness HPI narrative: This is a 57-year-old male with a known diagnosis of seizures presenting ED for seizures. Patient states that he was at the baseball game all day today. He had a bare to the game. When coming home his noticed that he had gaze deviation and then 1 episode of a tonic clonic seizure. Patient states he has been taking his Keppra as instructed. Patient typically has about 1 seizure per month. Neurologist is Dr. Hess. At this point the patient has no complaints. Related Data Allergies Allergy/AdvReac Type Severity Reaction Status Date / Time No Known Allergies Allergy Verified 08/21/22 17:50 [facility] Past Medical History Medical History Bilateral sensorineural hearing loss Chronic obstructive pulmonary disease Seizures (01/2022) Surgical History Surgical History No significant past surgical history Family History Family History Other No significant family history Social History Social History Social History: Surrogate medical decision maker: Maverick Murillo, spouse. Code status: Full code. Smoking packs per day: 1 Smoking cigarettes per day: 20.0 Years smoked: 40 Smoking pack-years: 40.00 Smoking status: Current every day smoker Tobacco type: cigarettes Alcohol intake: current Drinks per week: 10 Substance use: current Substance use type: marijuana Other substance usage details: daily Last use: 01/25/2022 Lack of Transportation: No Lack of Food: Never True Current Housing: I Have Housing Concerned About Future Housing: No Difficulty Paying Gas/Electric Bills: No Difficulty Paying for Meds: No Currently Unemployed: No Education: Don't Know Difficulty w/ Childcare or Family Care: No Additional living arrangements comments: Lives with spouse in [place]. 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 Spiritual care concerns: No Exam Narrative: APPEARANCE: No apparent distress. Hard of hearing Head: atraumatic. EYES: EOMI, NOSE: Atraumatic NECK: Trachea midline RESPIRATORY: No increased rate of breathing CARDIOVASCULAR: RRR, ABDOMINAL: Non-distended MUSCULOSKELETAl: No obvious deformities NEURO: Alert. Cranial nerves 2-12 grossly intact. Sensation light touch, motor function cerebellar function intact for 4 extremities. Gait exam was normal. SKIN:: Warm, dry. Normal color PSYCHIATRIC: Normal affect Course Vital Signs Vital signs: Vital Signs Temperature 98.4 F 10/18/22 00:40 Pulse Rate 83 10/18/22 00:40 Respiratory Rate 18 10/18/22 00:40 Blood Pressure 123/73 10/18/22 00:40 Pulse Oximetry 96 10/18/22 00:40 Oxygen Delivery Room Air 10/18/22 00:40 Temperature 98.6 F 10/18/22 01:50 Pulse Rate 74 10/18/22 01:55 Respiratory Rate 20 10/18/22 01:55 Blood Pressure 110/74 10/18/22 01:55 Pulse Oximetry 96 10/18/22 01:55 Oxygen Delivery Room Air 10/18/22 00:40 Medical Decision Making [facility] Narrative Medical decision making narrative: -Presentation: 57-year-old male history of seizures presenting for seizure. The time of my exam he has a normal neurologic exam is at his baseline mental status. Basic lab work, Keppra and fluid bolus will be given. -DDX includes but is not limited to: seizures, medication noncompliance, dehydration -Co-morbidities complicating care: seizures, hearing loss -Social determinants of health: works at [employer] lives with his -External Chart Review: none -Hx from independent Sources: at bedside -Independent interpretation of studies: laboratory studies wit
--- NOTE | 2022-10-30 01:20 | PC.NURSE ---
LATE ENTRY This note is being entered to document information to the patient's record. The following information was omitted on 10/19/22], by [cd].Iv stop time for NS was 02:57, ofr Levetirace was 02:11
== END 2022-10-18 05:12 | disposition home or self-care (01) ==
PROVIDERS: Emergency Provider Emergency Medicine; PCP Student in an Organized Health Care Education/Training Program
DX: G40.909 Epilepsy, unspecified, not intractable, without status epilepticus (principal); J44.9 Chronic obstructive pulmonary disease, unspecified; H90.3 Sensorineural hearing loss, bilateral; F17.210 Nicotine dependence, cigarettes, uncomplicated
CPT/HCPCS: 36415; 80048; 83735; 85025; 96365; 96374; 99284; J1953; J7030

== ENCOUNTER 2022-11-19 05:51 | Emergency (ER) | payer OTHER, BC, SELFPAY ==
[2022-11-19 05:52] VITALS: PULSE 93; RESP 21; TEMP 36.3; O2SAT 94
--- NOTE | 2022-11-19 06:03 | ECG_ITS ---
Measurements Intervals [place] Rate: 85 P: 75 OK: 158 QRS: 78 QRSD: 87 T: 79 QT: 336 QTc: 400 Interpretive Statements SINUS RHYTHM ST ELEVATION, PROBABLY EARLY REPOLARIZATION [ST ELEVATION WITH NORMALLY INFLECTED T WAVE] COMPARED TO ECG 08/21/2022 13:24:58 ST (T WAVE) DEVIATION NOW PRESENT Electronically Signed On 11-19-2022 10:17:53 CDT by Jo Lei M.D.
--- NOTE | 2022-11-19 06:20 | ED.GENADULT ---
HPI - General Adult General Chief complaint: Seizure <Ruel Polanco MD - Last Filed: 11/19/22 06:22> Stated complaint: post ictal seizure <Ruel Polanco MD - Last Filed: 11/19/22 06:22> Time Seen by Provider: 11/19/22 06:05 <Ruel Polanco MD - Last Filed: 11/19/22 06:22> History of Present Illness HPI narrative: Patient 57-year-old gentleman who presents the emergency department with chief complaint of seizure. Patient has prior history of seizure disorder and takes Keppra and reports this evening had a generalized tonic-clonic seizure at home. Patient reports has been compliant with his seizure medications and reports that this was his typical seizure <Ruel Polanco MD - Last Filed: 11/19/22 06:22> Related Data Allergies/adverse reactions: Allergies Allergy/AdvReac Type Severity Reaction Status Date / Time No Known Allergies Allergy Verified 11/19/22 07:43 <Ruel Polanco MD - Last Filed: 11/19/22 06:22> Review of Systems Review of Systems: A 10 system review of systems was completed on the patient and is negative except for what is stated in the HPI. Nursing and ancillary documentation was reviewed. <Ruel Polanco MD - Last Filed: 11/19/22 06:22> [facility] Past Medical History Medical History: Medical History Bilateral sensorineural hearing loss Chronic obstructive pulmonary disease Seizures (01/2022) <Ruel Polanco MD - Last Filed: 11/19/22 06:22> Surgical History Surgical History: Surgical History No significant past surgical history <Ruel Polanco MD - Last Filed: 11/19/22 06:22> Family History Family History: Family History Other No significant family history <Ruel Polanco MD - Last Filed: 11/19/22 06:22> Social History Social History: Social History Social History: Surrogate medical decision maker: Maverick Murillo, spouse. Code status: Full code. Smoking packs per day: 1 Smoking cigarettes per day: 20.0 Years smoked: 40 Smoking pack-years: 40.00 Smoking status: Current every day smoker Tobacco type: cigarettes Alcohol intake: current Drinks per week: 10 Substance use: current Substance use type: marijuana Other substance usage details: daily Last use: 01/25/2022 Lack of Transportation: No Lack of Food: Never True Current Housing: I Have Housing Concerned About Future Housing: No Difficulty Paying Gas/Electric Bills: No Difficulty Paying for Meds: No Currently Unemployed: No Education: Don't Know Difficulty w/ Childcare or Family Care: No Additional living arrangements comments: Lives with spouse in [place]. 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 Gender identity (if verbalized by the patient): Male Spiritual care concerns: No <Ruel Polanco MD - Last Filed: 11/19/22 06:22> Exam Narrative: GENERAL: Well-appearing, well-nourished, and in no acute distress. HEAD: Normocephalic, atraumatic. EYES: PERRLA and EOMI. ENT: Nares clear, no rhinorrhea or epistaxis. Mucous membranes moist. NECK: Supple. CHEST: Clear to auscultation. No respiratory distress. HEART: Regular rate and rhythm. No murmur heard. Normal peripheral pulses. ABDOMEN: Soft, nontender, nondistended, normal active bowel sounds. EXTREMITIES: Normal range of motion. No edema. SKIN: Warm, dry, no rash. NEURO: No focal deficits. Alert and oriented x3. PSYCH: Normal mood and affect. <Ruel Polanco MD - Last Filed: 11/19/22 06:22> Course Reevaluation(s) Reevaluation #1: Patient is alert and oriented and he is a
[2022-11-19] MEDS: SODIUM CHLORIDE 0.9% IV 1,000 ML 999 ML IV CONT ×2 (06:21→07:10)
[2022-11-19] MEDS: levETIRAcetam 500MG/NACL 100ML 500 MG/100 ML BAG 400 MG IVPB (06:22)
[2022-11-19 06:26] LABS: Basophils Absolute Auto 0.1 K/mm3 (0.0-0.1); Basophils Percent Auto 0.7 % (0.2-1.2); Eosinophils Absolute Auto 0.3 K/mm3 (0-0.3); Eosinophils Percent Auto 2.2 % (0-4.4); Hematocrit 44.9 % (42.0-52.0); Hemoglobin 15.5 g/dL (14.0-18.0); Immature Granulocyte Absolute 0.05 K/mm3 (0.00-0.031); Immature Granulocyte Percent A 0.4 % (0-0.5); Lymphocytes Absolute Auto 1.73 K/mm3 (0.9-3.2); Lymphocytes Percent Auto 15.1 % (18.3-44.2); Mean Corpuscular HGB Conc 34.5 g/dl (32-36); Mean Corpuscular Hemoglobin 32.8 pg (26-34); Mean Corpuscular Volume 94.9 fl (80-100); Mean Platelet Volume 8.7 fl (7.4-10.4); Monocytes Absolute Auto 0.5 K/mm3 (0.1-0.6); Monocytes Percent Auto 4.6 % (2.6-8.5); Neutrophils Absolute Auto 8.8 K/mm3 (1.3-6.7); Platelet Count Result 328 k/mm3 (150-375); Red Blood Count 4.73 M/mm3 (4.6-6.20); Red Cell Distribution Width 13.7 % (11.5-14.5); White Blood Count 11.5 K/mm3 (4.5-10.0)
[2022-11-19 06:36] LABS: Alkaline Phosphatase 99 U/L (38-126); Anion Gap 14 mmol/L (8-16); Aspartate Amino Transferase 45 U/L (17-59); Bilirubin,Total 0.6 mg/dL (0.2-1.3); Blood Urea Nitrogen 15 mg/dL (9-20); Calcium 8.9 mg/dL (8.4-10.2); Carbon Dioxide 17 mmol/L (22-30); Chloride 106 mmol/L (98-107); Estimated CRCL calculation 70 ml/min; Estimated Glomerular Filt Rate > 60; Glucose 128 mg/dL (65-110); Potassium 3.7 mmol/L (3.4-5.0); Sodium 137 mmol/L (137-145)
[2022-11-19 06:42] LABS: Alanine Aminotransferase 47 U/L (6-50)
[2022-11-19] MEDS: levETIRAcetam 1000MG/NACL100ML 1,000 MG/100 ML BAG 400 MG IVPB (07:09)
[2022-11-19 07:10] VITALS: BP 144/87; PULSE 81; RESP 11; O2SAT 94
[2022-11-19] MEDS: LORazepam INJ (*CRX) 2 MG/ML VIAL 1 MG IV PUSH (07:20)
[2022-11-19 07:23] VITALS: BP 123/64; PULSE 75; RESP 18; O2SAT 95; O2SAT 98
[2022-11-19 08:08] VITALS: PULSE 88
[2022-11-19 08:11] LABS: Appearance Urine Clear (Clear); Bilirubin Urine Negative (Negative); Blood Urine Negative (Negative); Color Urine Yellow (Yellow); Glucose Urine UA Negative (Negative); Ketones Urine Negative (Negative); Leukocyte Esterase Ur Negative LEU/UL (Negative); Nitrate Urine Negative (Negative); Protein Urine Negative (Negative); Urobilinogen Urine 0.2 mg/dL (<2.0); pH Urine 5.5 (5.0-9.0)
[2022-11-19 08:16] LABS: Add Urine Microscopic? NO
[2022-11-19 09:42] VITALS: BP 116/70; PULSE 88; RESP 18; O2SAT 99
== END 2022-11-19 09:45 | disposition home or self-care (01) ==
PROVIDERS: Emergency Provider Emergency Medicine
DX: G40.909 Epilepsy, unspecified, not intractable, without status epilepticus (principal); F17.210 Nicotine dependence, cigarettes, uncomplicated; J44.9 Chronic obstructive pulmonary disease, unspecified
CPT/HCPCS: 36415; 80053; 81003; 85025; 93005; 96361; 96365; 96366; 96375; 99284; J1953; J2060; J7030

== ENCOUNTER 2023-06-30 07:41 | Outpatient (CLI) | payer BC, OTHER, SELFPAY ==
[2023-07-02 13:36] LABS: Levetiracetam Keppra 26.3 mcg/mL (6.0-46.0)
== END 2023-06-30 07:42 | disposition home or self-care (01) ==
PROVIDERS: Visit Provider Student in an Organized Health Care Education/Training Program
DX: R56.9 Unspecified convulsions (principal)
CPT/HCPCS: 36415; 80177

== ENCOUNTER 2023-08-05 07:51 | Emergency (ER) | payer SELFPAY ==
[2023-08-05 07:50] VITALS: BP 120/82; PULSE 83; RESP 20; TEMP 36.8; O2SAT 100
[2023-08-05 08:08] VITALS: PULSE 83
--- NOTE | 2023-08-05 08:26 | PC.NURSE ---
when walking into room explained to pt and family that I will be starting an IV and getting blood work. family states, He needs a warm blanket he is cold. gave pt warm blanket and put tourniquet on pt's arm. Pt states What are you about to do?! explained to pt like I had stated before I was going to start an IV and obtain blood. pt points to vial and states, so you're telling me that tube of blood right there did not just come out of me!? explained to pt that was only one vial of blood from previous attempt of other RN and that we will need more blood. Pt states he just wants to leave and that he feels fine. Family telling pt that he needs to stay and be evaluated. pt then agrees for IV and blood work. attempted IV access and blood work x1. while attempting to thread catheter in pt states Ma'am you better of got that! Im not getting stuck again! pt continues to move arm and unable to thread catheter through. removed IV from arm. pt states thats it, I'm leaving! told pt and family that this RN will speak with provider. Dr. Alberts made aware. Dr. Alberts at bedside speaking with pt and family.
--- NOTE | 2023-08-05 08:27 | ED.GENADULT ---
HPI - General Adult General Chief complaint: Seizure Stated complaint: SEIZURE Time Seen by Provider: 08/05/23 08:19 History of Present Illness HPI narrative: 53-year-old male with prior seizure history of present to the ED for evaluation after having a 1 minute long seizure at home. Patient states that he does take Keppra 1500 mg twice daily. Patient states he has not missed any doses. Patient states that he does have seizures approximately every 4-6 months. Patient reports his last seizure was in February. Related Data Allergies Allergy/AdvReac Type Severity Reaction Status Date / Time No Known Allergies Allergy Verified 08/05/23 08:08 Review of Systems Review of Systems: All systems reviewed & are unremarkable except as noted in HPI and below PMFSH Past Medical History Medical History (Updated 08/05/23 @ 08:30 by Mariano Alberts MD) Avulsion injury of left knee region Healthy male adult Left anterior cruciate ligament tear Sprain of left knee (04/23/19) Social History Social History Smoking status: Former smoker Alcohol use details: occasionally Gender identity (if verbalized by the patient): Male Exam Narrative: APPEARANCE: Well appearing, no pain, no distress, well-nourished. HEAD: normocephalic, atraumatic. EYES: PERRLA/EOMI, conjunctivae clear. NECK: Supple. No adenopathy, no masses. RESPIRATORY: Airway patent, respirations nonlabored. Clear to auscultation bilaterally, no rales, rhonchi, wheezing. CARDIOVASCULAR: Regular rate and rhythm without murmurs rubs or gallops. ABDOMINAL: Soft, nontender, nondistended, normal bowel sounds MUSCULOSKELETAL: Moves all extremities. Strength/ROM intact, No edema, No calf tenderness. NEURO: Alert. Cranial nerves II through XII intact. Course Course Emergency Course: Patient declined any medical workup and preferred to be discharged home Vital Signs Vital signs: Vital Signs Temperature 98.2 F 08/05/23 07:50 Pulse Rate 83 08/05/23 07:50 Respiratory Rate 20 08/05/23 07:50 Blood Pressure 120/82 08/05/23 07:50 Pulse Oximetry 100 08/05/23 07:50 Oxygen Delivery Room Air 08/05/23 07:50 Temperature 98.2 F 08/05/23 07:50 Pulse Rate 83 08/05/23 08:08 Respiratory Rate 20 08/05/23 07:50 Blood Pressure 120/82 08/05/23 07:50 Pulse Oximetry 100 08/05/23 07:50 Oxygen Delivery Room Air 08/05/23 07:50 Medical Decision Making MDM Narrative Medical decision making narrative: 51-year-old male presented to the emergency department for evaluation after having a seizure at home. Patient is back to his baseline and is declining any medical workup at this time. Patient was encouraged to return to the emergency department if he has any worsening symptoms or if he has any questions or concerns. Patient was alert oriented appropriate at time of discharge. Vital Signs Vital Signs: Vital Signs Temperature 98.2 F 08/05/23 07:50 Pulse Rate 83 08/05/23 07:50 Respiratory Rate 20 08/05/23 07:50 Blood Pressure 120/82 08/05/23 07:50 Pulse Oximetry 100 08/05/23 07:50 Oxygen Delivery Room Air 08/05/23 07:50 Temperature 98.2 F 08/05/23 07:50 Pulse Rate 83 08/05/23 08:08 Respiratory Rate 20 08/05/23 07:50 Blood Pressure 120/82 08/05/23 07:50 Pulse Oximetry 100 08/05/23 07:50 Oxygen Delivery Room Air 08/05/23 07:50 Discharge Plan Discharge Clinical Impression: Generalized seizure Patient Disposition: Home, Self-Care Condition: Stable Instructions: Epilepsy (ED) Additional Instructions: You declined any medical workup while in the emergency department. Continue to take your Keppra as directed. If you have any worsening symptoms then please call or return to the emergency department for further evaluation. Have close follow-up with your neurologist and your primary care physician. Prescriptions: No Action
--- NOTE | 2023-08-05 08:43 | PC.NURSE ---
Unable to obtain blood or IV site after attempts by 2 nurses. Pt refuses further sticks and wants to leave. ERP aware and to room.
== END 2023-08-05 09:00 | disposition home or self-care (01) ==
LOC: ANHED 09:10
PROVIDERS: Emergency Provider Emergency Medicine
DX: G40.909 Epilepsy, unspecified, not intractable, without status epilepticus (principal); Z87.891 Personal history of nicotine dependence
CPT/HCPCS: 99284

== ENCOUNTER 2024-07-10 08:02 | Emergency (ER) | payer BC, OTHER, SELFPAY ==
[2024-07-10] VITALS (20 sets, daily range): BP systolic 104–125; BP diastolic 71–84; PULSE 88–113; RESP 16–36; TEMP 36.8; O2SAT 88–100
--- NOTE | 2024-07-10 08:32 | ECG_ITS ---
Test Date: 2024-07-10 08:22:03 Measurements Intervals [place] Rate: 104 P: 80 TX: 139 QRS: 77 QRSD: 86 T: 68 QT: 322 QTc: 425 Interpretive Statements SINUS TACHYCARDIA No previous ECG available for comparison Electronically Signed On 07-11-2024 15:28:25 CDT by Trino Ruiz M.D.
[2024-07-10 08:46] LABS: Basophils Absolute Auto 0.1 K/mm3 (0.0-0.1); Basophils Percent Auto 0.5 % (0.2-1.2); Eosinophils Absolute Auto 0.2 K/mm3 (0-0.3); Eosinophils Percent Auto 1.5 % (0-4.4); Hematocrit 42.6 % (42.0-52.0); Hemoglobin 14.5 g/dL (14.0-18.0); Immature Granulocyte Absolute 0.07 K/mm3 (0.00-0.031); Immature Granulocyte Percent A 0.5 % (0-0.5); Lymphocytes Percent Auto 10.8 % (18.3-44.2); Mean Corpuscular Hemoglobin 32.1 pg (26-34); Mean Corpuscular Volume 94.2 fl (80-100); Mean Platelet Volume 8.5 fl (7.4-10.4); Monocytes Absolute Auto 0.6 K/mm3 (0.1-0.6); Monocytes Percent Auto 4.7 % (2.6-8.5); Neutrophils Absolute Auto 10.7 K/mm3 (1.3-6.7); Platelet Count Result 367 k/mm3 (150-375); Red Blood Count 4.52 M/mm3 (4.6-6.20); Red Cell Distribution Width 13.8 % (11.5-14.5)
[2024-07-10 08:49] LABS: Glucose Point of Care 147 mg/dl (65-105)
[2024-07-10 08:58] LABS: Albumin Level 4.2 g/dL (3.5-5.1); Alkaline Phosphatase 125 U/L (38-126); Anion Gap 15 mmol/L (4-12); Aspartate Amino Transferase 38 U/L (17-59); Bilirubin,Total 0.3 mg/dL (0.2-1.3); Blood Urea Nitrogen 15 mg/dL (9-20); Calcium 9.1 mg/dL (8.4-10.2); Carbon Dioxide 18 mmol/L (22-30); Chloride 108 mmol/L (98-107); Estimated Glomerular Filt Rate > 60; Glucose 143 mg/dL (65-110); Potassium 4.1 mmol/L (3.4-5.0); Prothrombin Time 13.2 Seconds (11.1-14.7); Sodium 141 mmol/L (137-145)
[2024-07-10 08:59] LABS: Partial Thromboplastin Time 22.5 Seconds (22.3-36.8)
[2024-07-10 09:13] LABS: Alanine Aminotransferase 43 U/L (6-50)
--- NOTE | 2024-07-10 10:39 | ED_ITS ---
HPI - Seizure General Chief Complaint: Seizure Stated Complaint: SEIZURE Time Seen by Provider: 07/10/24 10:33 History of Present Illness HPI Narrative: Pt had two witnessed seizures this morning. Pt had meds changed about 8 months ago and has not had a seizure since. Pt has not missed any doses of medicines. Pt was post ictal initially but now alert and back to baseline. Pt has no complaints now. Seizure History: Yes (02/07) Related Data Home Medications ?Medication ?Instructions ?Recorded ?Confirmed ?Last Taken ?Type oxcarbazepine 300 mg tablet 300 mg PO .morning seizures 07/10/24 07/10/24 07/10/24 History oxcarbazepine 300 mg tablet 600 mg PO .night seizures 07/10/24 07/10/24 07/09/24 History Allergies Allergy/AdvReac Type Severity Reaction Status Date / Time No Known Allergies Allergy Unverified 07/10/24 08:30 Review of Systems 2 Review of Systems: All systems reviewed & are unremarkable except as noted in HPI and below PMFSH Past Medical History Medical History Bilateral sensorineural hearing loss Chronic obstructive pulmonary disease Seizures (01/2022) Surgical History Surgical History No significant past surgical history Family History Family History Other No significant family history Social History Social History Social History: Surrogate medical decision maker: Maverick Murillo, spouse. Code status: Full code. Smoking packs per day: 0.5 Smoking cigarettes per day: 10.0 Years smoked: 40 Smoking pack-years: 20.00 Smoking status: Current every day smoker Tobacco type: cigarettes Alcohol intake: current Drinks per week: 10 Substance use: current Substance use type: marijuana Other substance usage details: daily Last use: 01/25/2022 Do You Feel Safe in your Home?: Yes Lack of Transportation: No Lack of Food: Never True Current Housing: I Have Housing Concerned About Future Housing: No Difficulty Paying Gas/Electric Bills: No Difficulty Paying for Meds: No Currently Unemployed: No Education: Don't Know Difficulty w/ Childcare or Family Care: No Additional living arrangements comments: Lives with spouse in [place]. 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 Gender identity (if verbalized by the patient): Male Spiritual care concerns: No Exam 2 Const: General: healthy appearing and no acute distress Nutritional Appearance: well nourished Orientation/consciousness: patient oriented x3 Limitations: no limitations HENMT: Head: normal to inspection Eyes: Pupils: Equal, round and reactive pupils present EOM: EOMs intact bilaterally Neck: Neck: normal visual inspection Resp: Effort & Inspection: normal respiratory effort Auscultation: clear to auscultation bilaterally Cardio: Rate: regular rate Rhythm: regular rhythm GI: GI Palp: Yes Soft to palpation and No Tenderness to palpation present (GI) Auscultation: normal bowel sounds Skin: General skin exam: normal color Rashes: no rashes Neuro: General: patient oriented x3, moves all extremities, no meningeal signs, no focal motor deficits and CN's II-XI intact bilaterally Cranial nerves: Yes Nystagmus not present Speech: normal speech Extrem: General: normal to inspection and no clubbing, cyanosis or edema Psych: Appearance: grossly normal Mental Status: mental status grossly normal Affect: normal affect Attitude: cooperative Course Vital Signs Vital signs: Vital Signs Temperature 98.2 F 07/10/24 08:19 Pulse Rate 112 H 07/10/24 08:19 Respiratory Rate 16 07/10/24 08:19 Blood Pressure 112/78 07/10/24 08:19 Pulse Oximetry 88 L 07/10/24 08:19 Oxygen Delivery Room Air 07/10/24 08:19 Temperature 98.2 F 07/10/24 08:19 Pulse Rate 100 07/10/24 12:01 Respiratory Rate 20 07/10/24 12:01 Blood Pressure 122/84 07/10/24 12:01 Pulse Oximetry 93 07/10/24 12:01 Oxygen Delivery Room Air 07/10/24 08:19 MDM - Seizure MDM Narrative Medical decision making narrative: Pt had seizure this morning x 2. Pt compliant with meds. Pt sees Dr [place]mahon [place] for [place]. Will get labs to check electrolytes. labs look fine. pt back to baseline. will contact Dr Mcmahon at [place]. discussed with Dr Mcmahon. will see in clinic but no adjustments in meds now. Lab Data 07/10/24 08:42 07/10/24 08:42 Labs: Lab Results 07/10/24 07/10/24 07/10/24 Range/Units 08:42 08:43 11:00 WBC 13.0 H (4.5-10.0) K/mm3 RBC 4.52 L (4.6-6.20) M/mm3 Hgb 14.5 (14.0-18.0) g/dL Hct 42.6 (42.0-52.0) % MCV 94.2 (80-100) fl MCH 32.1 (26-34) pg MCHC 34.0 (32-36) g/dl RDW 13.8 (11.5-14.5) % Plt Count 367 (150-375) k/mm3 MPV 8.5 (7.4-10.4) fl Immature Gran % (Auto) 0.5 (0-0.5) % Neut % (Auto) 82.0 H (45.5-73.1) % Lymph % (Auto) 10.8 L (18.3-44.2) % [place] % (Auto) 4.7 (2.6-8.5) % Eos % (Auto) 1.5 (0-4.4) % Baso % (Auto) 0.5 (0.2-1.2) % Lymph # (Auto) 1.40 (0.9-3.2) K/mm3 [place] # (Auto) 0.6 (0.1-0.6) K/mm3 Eos # (Auto) 0.2 (0-0.3) K/mm3 Baso # (Auto) 0.1 (0.0-0.1) K/mm3 Abs Immat Gran (auto) 0.07 H (0.00-0.031) K/mm3 Absolute Neuts (auto) 10.7 H (1.3-6.7) K/mm3 Absolute Nucleated RBC 0.000 (0.0-0.012) K/mm3 Nucleated RBC % 0.0 (0.0-0.2) % PT 13.2 (11.1-14.7) Seconds INR 1.0 APTT 22.5 (22.3-36.8) Seconds Sodium 141 (137-145) mmol/L Potassium 4.1 (3.4-5.0) mmol/L Chloride 108 H (98-107) mmol/L Carbon Dioxide 18 L (22-30) mmol/L Anion Gap 15 H (4-12) mmol/L BUN 15 (9-20) mg/dL Creatinine 1.16 (0.7-1.3) mg/dL Estim Creat Clear Calc Not Reportable Estimated GFR > 60 (59 - ) Glucose 143 H (65-110) mg/dL POC Capillary Glucose 147 H (65-105) mg/dl Calcium 9.1 (8.4-10.2) mg/dL Total Bilirubin 0.3 (0.2-1.3) mg/dL AST 38 (17-59) U/L ALT 43 (6-50) U/L Alkaline Phosphatase 125 (38-126) U/L Total Protein 8.0 (6.3-8.2) g/dL Albumin 4.2 (3.5-5.1) g/dL Urine Color Yellow (Yellow) Urine Appearance Clear (Clear) Urine pH 5.0 (5.0-9.0) Ur Specific [place] 1.012 (1.001-1.035) Urine Protein Negative (Negative) mg/dL Urine Glucose (UA) Negative (Negative) mg/dL Urine Ketones Negative (Negative) mg/dL Ur Blood (Man) Negative (Negative) Urine Nitrate Negative (Negative) Urine Bilirubin Negative (Negative) Urine Urobilinogen 0.2 (<2.0) mg/dL Leukocyte Esterase Rfl Negative (Negative) JESSICA/UL Discharge Plan Discharge Clinical Impression: Seizures Patient Disposition: Home, Self-Care Condition: Improved Instructions: Antibiotic Form, Epilepsy (ED) Patient Language: Czech Prescriptions: No Action oxcarbazepine 300 mg tablet 300 mg PO .morning oxcarbazepine 300 mg tablet 600 mg PO .night Follow-up/Referrals: PHYSICIAN NOT ON STAFF,NONSTAFF [Non-Staff] -
[2024-07-10 11:13] LABS: Add Urine Microscopic? NO; Appearance Urine Clear (Clear); Bilirubin Urine Negative (Negative); Blood Urine Negative (Negative); Color Urine Yellow (Yellow); Glucose Urine UA Negative (Negative); Ketones Urine Negative (Negative); Leukocyte Esterase Ur Negative LEU/UL (Negative); Nitrate Urine Negative (Negative); Protein Urine Negative (Negative); Specific Grav Ur 1.012 (1.001-1.035); Urobilinogen Urine 0.2 mg/dL (<2.0)
--- OUTSIDE RECORDS SUMMARY | 2024-07-10 12:46 | XMS_ITS | Continuity of Care Document ---
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 It does not include entries that were removed or entered in error. Problem Status Onset Date Problem Type Date of Resolution Comments Source Cannabis abuse (SNOMED CT 34200530) Active Condition Aug 03, 2012 Entered By: HEATHER MOMIN Comment: UDS + cannabis 07/27/2012 [facility] Drinks alcohol Active Condition [facility] Erectile dysfunction (SNOMED CT 827558940) Active Condition [facility] Hearing Loss (SCT 00469654) Active Condition [facility] Mood disorder Active Condition [facility] Pain of right shoulder joint Active Condition [facility] Seizure (SCT 24397826) Active Condition [facility] Tinnitus Active Condition [facility] Tobacco User (SCT 602372095) Active Condition [facility] Vitamin D Deficiency (SCT 9875778) Active Condition [facility] Malnutrition (calorie) Inactive Condition 05/22/2024 [facility] Sudden hearing loss (SNOMED CT 33247087) Inactive Condition 10/25/2018 [facility] Tobacco user (SNOMED CT 343807549) Inactive Condition 10/25/2018 [facility] Diagnosis: ICD-10-CM Z02.9 Encounter for administrative examinations, unspecified Active Diagnosis [facility] Diagnosis: ICD-10-CM R56.9 Unspecified convulsions Active Diagnosis [facility] Diagnosis: ICD-10-CM G40.219 Local-rel symptc epi w cmplx part seiz, ntrct, w/o stat epi Active Diagnosis [facility] Diagnosis: ICD-10-CM H90.3 Sensorineural hearing loss, bilateral Active Diagnosis [facility] Diagnosis: ICD-10-CM Z01.20 Encounter for dental exam and cleaning w/o abnormal findings Active Diagnosis [facility] Diagnosis: ICD-10-CM G40.009 Local-rel idio epi w seiz of loc onst,not ntrct,w/o stat epi Active Diagnosis [facility] Diagnosis: ICD-10-CM H52.7 Unspecified disorder of refraction Active Diagnosis [facility] Diagnosis: ICD-10-CM Z12.11 Encounter for screening for malignant neoplasm of colon Active Diagnosis [facility] Medications Combined list of outpatient medications from Department of Defense and Veterans Affairs facilities.Medications provided include 1) outpatient medications from the last 15 months, and 2) patient-reported medications. Medication Details Route Status Patient Instructions Prescription Expires Prescription Number Last Dispense Date Ordering Provider Order Date Order Qty Source BISACODYL 5MG TAB,EC TAKE TWO TABLETS BY MOUTH ONE TIME *TAKE BISACODY L TABLETS AT 4PM ON AFTERNOO N PRIOR TO TEST. CALL WITH ANY QUESTION S ABOUT THESE INSTRUCT IONS. MAIL *TAKE BISACODY L TABLETS AT 4PM ON AFTERNOO N PRIOR TO TEST. CALL WITH ANY QUESTION S ABOUT THESE INSTRUCT IONS. MAIL ORAL 06/23/2023 [id number] 4 Chintan WATTERS 2023 2 [facility] CHOLECALCIF RACHEL (LOW DOSE VIT D) - (OTC) TAB TAKE BY MOUTH ONCE A DAY ORAL ACTIVE NADIR RAJPUT 2022 [facility] LEVETIRACET AM 750MG TAB TAKE TWO TABLETS BY MOUTH TWICE A DAY FOR SEIZURES SWALLO W WHOLE, DO NOT CRUSH OR CHEW. ORAL HOLD 07/27/2024 [id number] 5 MARCY RUSHING 2023 360 [facility] MULTIVITAMI NS CAP/TAB TAKE 1 TABLET BY MOUTH ONCE A DAY FOR NUTRITIO N/DIETAR Y SUPPLEME NTATION ORAL 11/24/2023 [id number] 4 NADIR RAJPUT 2022 100 [facility] OXCARBAZEPI NE 300MG TAB TAKE ONE TABLET BY MOUTH EVERY MORNING AND TAKE TWO TABLETS EVERY EVENING FOR SEIZURES ORAL ACTIVE 01/11/2025 [id number] 5 MARCY RUSHING 2023 270 [facility] OXCARBAZEPI NE 300MG TAB TAKE ONE TABLET BY MOUTH TWICE A DAY FOR SEIZURES ORAL DISCONT INUED (EDIT) 10/12/2024 [id number] 4 JULIÁN LORD W 2023 180 [facility] PEG-3350/EL ECTROLYTES PWDR MIX AND DRINK CONTENTS OF BOTTLE BY MOUTH DIRECTED (THE DAY BEFORE YOUR TEST ONLY DRINK CLEAR LIQUIDS- NO SOLID FOOD! TAKE THE BISACODY L TABLETS AT 4PM AND MIX THE GOLYTELY WITH WATER AND REFRIGER ATE. AT 7PM DRINK HALF OF THE GOLYTELY . REFRIGER ATE OVERNIGH T. COMPLETE GOLYTELY 3 HRS BEFORE LEAVING HOME FOR TEST. READ YOUR INSTRUCT IONS!) (THE DAY BEFORE YOUR TEST ONLY DRINK CLEAR LIQUIDS- NO SOLID FOOD! TAKE THE BISACODY L TABLETS AT 4PM AND MIX THE GOLYTELY WITH WATER AND REFRIGER ATE. AT 7PM DRINK HALF OF THE GOLYTELY . REFRIGER ATE OVERNIGH T. COMPLETE GOLYTELY 3 HRS BEFORE LEAVING HOME FOR TEST. READ YOUR INSTRUCT IONS!) ORAL 06/23/2023 [id number] 4 Chintan WATTERS 2023 1 [facility] SILDENAFIL CITRATE 100MG TAB TAKE ONE-HALF TABLET BY MOUTH EVERY WEEK NEEDED FOR ERECTILE DYSFUNCT ION (TAKE 60 MINUTES PRIOR TO SEXUAL ACTIVITY ) - LIMIT 6 DOSES PER 30 DAYS ORAL ACTIVE 04/26/2025 [id number] 5 NADIR RAJPUT 2024 9 [facility] SILDENAFIL CITRATE 100MG TAB TAKE ONE-HALF TABLET BY MOUTH EVERY WEEK NEEDED FOR ERECTILE DYSFUNCT ION (TAKE 60 MINUTES PRIOR TO SEXUAL ACTIVITY ) - LIMIT 4 DOSES PER 30 DAYS ORAL 12/03/2023 [id number] 4 NADIR RAJPUT 2022 6 [facility] SIMETHICONE 80MG TAB,CHEW CHEW AND SWALLOW FOUR TABLETS BY MOUTH DIRECTED FOR TWO DOSES BEFORE GI PROCEDUR E ORAL 06/23/2023 [id number] 4 Chintan WATTERS 2023 8 [facility] Immunizations Combined list of available immunizations from the Department of Defense and Veterans Affairs facilities. 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 Order Name Results Value Reference Range Date Interpretation Specimen Comments Source OCCULT BLOOD FIT X1 SCREEN HEMOGLOBIN .GASTROINT ESTINAL.LO WER [PRESENCE] IN STOOL BY IMMUNOASSA Y Negative 05/19 Specimen Type: FECES No comment entered. Ordering Provider: SAY RAJPUT Report Released Date/Time: May 22, 2024 03:26 PM Reporting Lab: [facility] [address] [facility] [address] Performing Lab: [facility] [address] [facility] [address] [facility] VITAMIN D, 25-HYDRO XY 25-HYDROXY VITAMIN D3 [MASS/VOLU ME] IN SERUM OR PLASMA 34.6 ng/mL 30 - 96 11/23 Specimen Type: SERUM No comment entered. Ordering Provider: SAY RAJPUT Report Released Date/Time: Nov 24, 2023 10:09 AM Reporting Lab: [facility] [address] [facility] [address] Performing Lab: [address] [address] [facility] LIPID PANEL (STL) CHOLESTERO L [MASS/VOLU ME] IN SERUM OR PLASMA 190 mg/dL 0 - 200 05/21 Specimen Type: PLASMA Comment: No hemolysis noted. Ordering Provider: SAY RAJPUT Report Released Date/Time: May 21, 2023 09:53 AM Reporting Lab: [place] [address] [facility] [address] Performing Lab: [address] [address] [facility] LIPID PANEL (STL) TRIGLYCERI DE [MASS/VOLU ME] IN SERUM OR PLASMA 110 mg/dL 0 - 150 05/21 Specimen Type: PLASMA Comment: No hemolysis noted. Ordering Provider: SAY RAJPUT Report Released Date/Time: May 21, 2023 09:53 AM Reporting Lab: [place] [address] [facility] [address] Performing Lab: [address] [address] [facility] LIPID PANEL (STL) CHOLESTERO L IN LDL [MASS/VOLU ME] IN SERUM OR PLASMA BY CALCULATIO N 104 mg/dL 05/21 Specimen Type: PLASMA Comment: No hemolysis noted. Ordering Provider: SAY RAJPUT Report Released Date/Time: May 21, 2023 09:53 AM Reporting Lab: [address] [address] Performing Lab: [address] [address] [facility] LIPID PANEL (STL) CHOLESTERO L IN HDL [MASS/VOLU ME] IN SERUM OR PLASMA 64 mg/dL 40 05/21 Specimen Type: PLASMA Comment: No hemolysis noted. Ordering Provider: SAY RAJPUT Report Released Date/Time: May 21, 2023 09:53 AM Reporting Lab: [place] [address] [facility] [address] Performing Lab: [place] [phone] [facility] HGA1C HEMOGLOBIN A1C/HEMOGL OBIN.TOTAL IN BLOOD 5.8 4.0 - 6.0 05/21 Specimen Type: BLOOD No comment entered. Ordering Provider: SAY RAJPUT Report Released Date/Time: May 21, 2023 09:53 AM Reporting Lab: [place] [address] [place] [address] Performing Lab: [place] [phone] [facility] TSH (MA-PB-S TL) THYROTROPI N [UNITS/VOL UME] IN SERUM OR PLASMA 1.872 u[IU]/mL 0.47 - 5 05/21 Specimen Type: SERUM Comment: No hemolysis noted. Ordering Provider: SAY RAJPUT Report Released Date/Time: May 21, 2023 09:53 AM Reporting Lab: [place] [phone] Performing Lab: [phone] [place] [address] [facility] COMPREHE NSIVE METABOLI C PANEL CREATININE [MASS/VOLU ME] IN SERUM OR PLASMA 1.02 mg/dL 0.7 - 1.3 05/21 Specimen Type: PLASMA Comment: No hemolysis noted. Ordering Provider: SAY RAJPUT Report Released Date/Time: May 21, 2023 09:53 AM Reporting Lab: [place] [phone] Performing Lab: [address] [phone] [place] [address] [facility] COMPREHE NSIVE METABOLI C PANEL UREA NITROGEN [MASS/VOLU ME] IN SERUM OR PLASMA 12.5 mg/dL 9.0 - 25.0 05/21 Specimen Type: PLASMA Comment: No hemolysis noted. Ordering Provider: SAY RAJPUT Report Released Date/Time: May 21, 2023 09:53 AM Reporting Lab: [facility] [address] [facility] [address] Performing Lab: [facility] [address] [facility] [address] [facility] COMPREHE NSIVE METABOLI C PANEL GLUCOSE [MASS/VOLU ME] IN SERUM OR PLASMA 93 mg/dL 72 - 99 05/21 Specimen Type: PLASMA Comment: No hemolysis noted. Ordering Provider: SAY RAJPUT Report Released Date/Time: May 21, 2023 09:53 AM Reporting Lab: [facility] [address] [facility] [address] Performing Lab: [facility] [address] [place] [address] [facility] COMPREHE NSIVE METABOLI C PANEL SODIUM [MOLES/VOL UME] IN SERUM OR PLASMA 138 meq/L 136 - 145 05/21 Specimen Type: PLASMA Comment: No hemolysis noted. Ordering Provider: SAY RAJPUT Report Released Date/Time: May 21, 2023 09:53 AM Reporting Lab: [facility] [address] [place] [address] Performing Lab: [facility] [address] [place] [address] [facility] COMPREHE NSIVE METABOLI C PANEL POTASSIUM [MOLES/VOL UME] IN SERUM OR PLASMA 3.8 meq/L 3.5 - 5 05/21 Specimen Type: PLASMA Comment: No hemolysis noted. Ordering Provider: SAY RAJPUT Report Released Date/Time: May 21, 2023 09:53 AM Reporting Lab: [facility] [address] [place] [phone] Performing Lab: [facility] [address] [place] [address] [facility] COMPREHE NSIVE METABOLI C PANEL CHLORIDE [MOLES/VOL UME] IN SERUM OR PLASMA 104 meq/L 98 - 107 05/21 Specimen Type: PLASMA Comment: No hemolysis noted. Ordering Provider: SAY RAJPUT Report Released Date/Time: May 21, 2023 09:53 AM Reporting Lab: [address] [address] Performing Lab: [address] [phone] [facility] COMPREHE NSIVE METABOLI C PANEL CARBON DIOXIDE, TOTAL [MOLES/VOL UME] IN SERUM OR PLASMA 22 meq/L 22 - 31 05/21 Specimen Type: PLASMA Comment: No hemolysis noted. Ordering Provider: SAY RAJPUT Report Released Date/Time: May 21, 2023 09:53 AM Reporting Lab: [place] [phone] Performing Lab: [address] [address] [facility] COMPREHE NSIVE METABOLI C PANEL CALCIUM [MASS/VOLU ME] IN SERUM OR PLASMA 9.1 mg/dL 8.4 - 10.4 05/21 Specimen Type: PLASMA Comment: No hemolysis noted. Ordering Provider: SAY RAJPUT Report Released Date/Time: May 21, 2023 09:53 AM Reporting Lab: [address] [address] Performing Lab: [address] [address] [facility] COMPREHE NSIVE METABOLI C PANEL PROTEIN [MASS/VOLU ME] IN SERUM OR PLASMA 7.7 g/dL 6 - 8.6 05/21 Specimen Type: PLASMA Comment: No hemolysis noted. Ordering Provider: SAY RAJPUT Report Released Date/Time: May 21, 2023 09:53 AM Reporting Lab: [address] [address] Performing Lab: [address] [place] [address] [facility] COMPREHE NSIVE METABOLI C PANEL ALBUMIN [MASS/VOLU ME] IN SERUM OR PLASMA 3.9 g/dL 3.4 - 5 05/21 Specimen Type: PLASMA Comment: No hemolysis noted. Ordering Provider: SAY RAJPUT Report Released Date/Time: May 21, 2023 09:53 AM Reporting Lab: [place] [phone] Performing Lab: [address] [address] [facility] COMPREHE NSIVE METABOLI C PANEL BILIRUBIN. TOTAL [MASS/VOLU ME] IN SERUM OR PLASMA 0.6 mg/dL 0.2 - 1.2 05/21 Specimen Type: PLASMA Comment: No hemolysis noted. Ordering Provider: SAY RAJPUT Report Released Date/Time: May 21, 2023 09:53 AM Reporting Lab: [address] [address] Performing Lab: [address] [phone] [facility] COMPREHE NSIVE METABOLI C PANEL ALKALINE PHOSPHATAS E [ENZYMATIC ACTIVITY/V OLUME] IN SERUM OR PLASMA 103 U/L 40 - 150 05/21 Specimen Type: PLASMA Comment: No hemolysis noted. Ordering Provider: SAY RAJPUT Report Released Date/Time: May 21, 2023 09:53 AM Reporting Lab: [facility] [address] [place] [phone] Performing Lab: [address] [phone] [facility] COMPREHE NSIVE METABOLI C PANEL ASPARTATE AMINOTRANS FERASE [ENZYMATIC ACTIVITY/V OLUME] IN SERUM OR PLASMA 29 U/L 5 - 34 05/21 Specimen Type: PLASMA Comment: No hemolysis noted. Ordering Provider: SAY RAJPUT Report Released Date/Time: May 21, 2023 09:53 AM Reporting Lab: [address] [address] Performing Lab: [address] [phone] [facility] COMPREHE NSIVE METABOLI C PANEL ALANINE AMINOTRANS FERASE [ENZYMATIC ACTIVITY/V OLUME] IN SERUM OR PLASMA 33 U/L 8 - 40 05/21 Specimen Type: PLASMA Comment: No hemolysis noted. Ordering Provider: SAY RAJPUT Report Released Date/Time: May 21, 2023 09:53 AM Reporting Lab: [address] [address] Performing Lab: [address] [facility] COMPREHE NSIVE METABOLI C PANEL GLOMERULAR FILTRATION RATE/1.73 SQ M.PREDICTE D [VOLUME RATE/AREA] IN SERUM, PLASMA OR BLOOD BY CREATININE -BASED FORMULA (CKD-EPI 2020) 85.7 60 05/21 Specimen Type: PLASMA Comment: No hemolysis noted. Ordering Provider: SAY RAJPUT Report Released Date/Time: May 21, 2023 09:53 AM Reporting Lab: [place] [address] Performing Lab: [place] [address] [place] [address] [facility] VITAMIN D, 25-HYDRO XY 25-HYDROXY VITAMIN D3 [MASS/VOLU ME] IN SERUM OR PLASMA 19.8 ng/mL 30 - 96 05/21 L Specimen Type: SERUM Comment: The listed sex of this patient may not be a typical indication for this test. Therefore, reference ranges or interpretiv e criteria listed may not be valid. Clinical correlation suggested. Ordering Provider: SAY RAJPUT Report Released Date/Time: May 21, 2023 09:53 AM Reporting Lab: [address] [address] Performing Lab: [address] [phone] [place] [address] [facility] PROST. SPECIFIC AG.(PB-S TL) PROSTATE SPECIFIC AG [MASS/VOLU ME] IN SERUM OR PLASMA 0.416 ng/mL 0 - 4 05/21 Specimen Type: SERUM Comment: The listed sex of this patient may not be a typical indication for this test. Therefore, reference ranges or interpretiv e criteria listed may not be valid. Clinical correlation suggested. Ordering Provider: SAY RAJPUT Report Released Date/Time: May 21, 2023 09:53 AM Reporting Lab: [place] [address] Performing Lab: [address] [facility] CBC LEUKOCYTES [#/VOLUME] IN BLOOD BY AUTOMATED COUNT 7.8 10*3/uL 3.6 - 11.2 05/21 Specimen Type: BLOOD No comment entered. Ordering Provider: SAY RAJPUT Report Released Date/Time: May 21, 2023 09:53 AM Reporting Lab: [place] [address] Performing Lab: [address] [facility] CBC ERYTHROCYT ES [#/VOLUME] IN BLOOD BY AUTOMATED COUNT 4.58 10*6/uL 4.10 - 5.70 05/21 Specimen Type: BLOOD No comment entered. Ordering Provider: SAY RAJPUT Report Released Date/Time: May 21, 2023 09:53 AM Reporting Lab: [place] [address] Performing Lab: [place] [phone] [facility] CBC HEMOGLOBIN [MASS/VOLU ME] IN BLOOD 15.2 g/dL 13.1 - 16.8 05/21 Specimen Type: BLOOD No comment entered. Ordering Provider: SAY RAJPUT Report Released Date/Time: May 21, 2023 09:53 AM Reporting Lab: [address] [place] [address] Performing Lab: [phone] [place] [address] [facility] CBC HEMATOCRIT [VOLUME FRACTION] OF BLOOD 42.6 38.2 - 48.4 05/21 Specimen Type: BLOOD No comment entered. Ordering Provider: SAY RAJPUT Report Released Date/Time: May 21, 2023 09:53 AM Reporting Lab: [place] [phone] Performing Lab: [place] [phone] [facility] CBC MCV [ENTITIC VOLUME] BY AUTOMATED COUNT 93.0 fL 80.0 - 100.0 05/21 Specimen Type: BLOOD No comment entered. Ordering Provider: SAY RAJPUT Report Released Date/Time: May 21, 2023 09:53 AM Reporting Lab: [place] [phone] Performing Lab: [place] [phone] [facility] CBC MCH [ENTITIC MASS] BY AUTOMATED COUNT 33.2 pg 27.0 - 34.0 05/21 Specimen Type: BLOOD No comment entered. Ordering Provider: SAY RAJPUT Report Released Date/Time: May 21, 2023 09:53 AM Reporting Lab: [place] [phone] Performing Lab: [address] [phone] [facility] CBC MCHC [MASS/VOLU ME] BY AUTOMATED COUNT 35.7 g/dL 33.0 - 36.0 05/21 Specimen Type: BLOOD No comment entered. Ordering Provider: SAY RAJPUT Report Released Date/Time: May 21, 2023 09:53 AM Reporting Lab: [place] [address] Performing Lab: [facility] [address] [facility] [address] [facility] CBC PLATELETS [#/VOLUME] IN BLOOD BY AUTOMATED COUNT 428 10*3/uL 150 - 400 05/21 H Specimen Type: BLOOD No comment entered. Ordering Provider: SAY RAJPUT Report Released Date/Time: May 21, 2023 09:53 AM Reporting Lab: [address] [address] Performing Lab: [address] [address] [facility] CBC PLATELET MEAN VOLUME [ENTITIC VOLUME] IN BLOOD BY AUTOMATED COUNT 9.0 fL 7.5 - 11.2 05/21 Specimen Type: BLOOD No comment entered. Ordering Provider: SAY RAJPUT Report Released Date/Time: May 21, 2023 09:53 AM Reporting Lab: [address] [address] Performing Lab: [address] [phone] [facility] CBC ERYTHROCYT E DISTRIBUTI ON WIDTH [RATIO] BY AUTOMATED COUNT 13.2 11.8 - 15.1 05/21 Specimen Type: BLOOD No comment entered. Ordering Provider: SAY RAJPUT Report Released Date/Time: May 21, 2023 09:53 AM Reporting Lab: [address] [address] Performing Lab: [address] [address] [facility] CBC LYMPHOCYTE S/100 LEUKOCYTES IN BLOOD BY AUTOMATED COUNT 27 05/21 Specimen Type: BLOOD No comment entered. Ordering Provider: SAY RAJPUT Report Released Date/Time: May 21, 2023 09:53 AM Reporting Lab: [address] [address] Performing Lab: [address] [phone] [place] [address] [facility] CBC MONOCYTES/ 100 LEUKOCYTES IN BLOOD BY AUTOMATED COUNT 10 05/21 Specimen Type: BLOOD No comment entered. Ordering Provider: SAY RAJPUT Report Released Date/Time: May 21, 2023 09:53 AM Reporting Lab: [facility] [address] [place] [address] Performing Lab: [facility] [address] [place] [address] [phone] [facility] CBC NEUTROPHIL S/100 LEUKOCYTES IN BLOOD BY AUTOMATED COUNT 60 05/21 Specimen Type: BLOOD No comment entered. Ordering Provider: SAY RAJPUT Report Released Date/Time: May 21, 2023 09:53 AM Reporting Lab: [facility] [address] [place], [place] [phone] Performing Lab: [address] [facility] CBC EOSINOPHIL S/100 LEUKOCYTES IN BLOOD BY AUTOMATED COUNT 2 05/21 Specimen Type: BLOOD No comment entered. Ordering Provider: SAY RAJPUT Report Released Date/Time: May 21, 2023 09:53 AM Reporting Lab: [facility] [address] [place], [place] [phone] Performing Lab: [facility] [address] [place], [place] [phone] [address] [facility] CBC BASOPHILS/ 100 LEUKOCYTES IN BLOOD BY AUTOMATED COUNT 1 05/21 Specimen Type: BLOOD No comment entered. Ordering Provider: SAY RAJPUT Report Released Date/Time: May 21, 2023 09:53 AM Reporting Lab: [facility] [address] [place] [address] Performing Lab: [facility] [address] [place] [address] [facility] CBC LYMPHOCYTE S [#/VOLUME] IN BLOOD BY AUTOMATED COUNT 2.09 10*3/uL 0.77 - 4.50 05/21 Specimen Type: BLOOD No comment entered. Ordering Provider: SAY RAJPUT Report Released Date/Time: May 21, 2023 09:53 AM Reporting Lab: [place] [address] Performing Lab: [address] [phone] [facility] CBC MONOCYTES [#/VOLUME] IN BLOOD BY AUTOMATED COUNT 0.81 10*3/uL 0.19 - 0.80 05/21 H Specimen Type: BLOOD No comment entered. Ordering Provider: SAY RAJPUT Report Released Date/Time: May 21, 2023 09:53 AM Reporting Lab: [place] [address] Performing Lab: [address] [facility] CBC NEUTROPHIL S [#/VOLUME] IN BLOOD BY AUTOMATED COUNT 4.67 10*3/uL 2.10 - 8.00 05/21 Specimen Type: BLOOD No comment entered. Ordering Provider: SAY RAJPUT Report Released Date/Time: May 21, 2023 09:53 AM Reporting Lab: [place] [address] Performing Lab: [place] [phone] [facility] CBC EOSINOPHIL S [#/VOLUME] IN BLOOD BY AUTOMATED COUNT 0.18 10*3/uL 0.00 - 0.60 05/21 Specimen Type: BLOOD No comment entered. Ordering Provider: SAY RAJPUT Report Released Date/Time: May 21, 2023 09:53 AM Reporting Lab: [place] [address] Performing Lab: [place] [phone] [facility] CBC BASOPHILS [#/VOLUME] IN BLOOD BY AUTOMATED COUNT 0.07 10*3/uL 0.00 - 0.20 05/21 Specimen Type: BLOOD No comment entered. Ordering Provider: SAY RAJPUT Report Released Date/Time: May 21, 2023 09:53 AM Reporting Lab: [facility] [address] [facility] [address] Performing Lab: [facility] [address] [place] [facility] [place] [address] [facility] Vital Signs Combined list of inpatient and outpatient Vital Signs from Department of Defense and Veterans Affairs, ranging from 12 months to all on record, depending upon the facility. Vital Sign Value Date Comments Source SYSTOLIC BLOOD PRESSURE 125 05/22/2024 13:45:34 [facility] DIASTOLIC BLOOD PRESSURE 71 05/22/2024 13:45:34 [facility] PULSE OXIMETRY 95 05/22/2024 13:45:34 [facility] WEIGHT 152.2 05/22/2024 13:45:34 [facility] BMI 20 kg/m2 05/22/2024 13:45:34 [facility] PAIN 0 05/22/2024 13:45:34 [facility] HEIGHT 73 05/22/2024 13:45:34 [facility] TEMPERATURE 98.8 05/22/2024 13:45:34 [facility] [facility] PULSE 100 05/22/2024 13:45:34 [facility] RESPIRATION 18 05/22/2024 13:45:34 [facility] SYSTOLIC BLOOD PRESSURE 119 02/02/2024 14:08:24 [facility] DIASTOLIC BLOOD PRESSURE 81 02/02/2024 14:08:24 [facility] PULSE OXIMETRY 95 02/02/2024 14:08:24 [facility] WEIGHT 159 02/02/2024 14:08:24 [facility] BMI 26 kg/m2 02/02/2024 14:08:24 . [facility] PAIN 0 02/02/2024 14:08:24 [facility] TEMPERATURE 98.2 02/02/2024 14:08:24 [facility] PULSE 99 02/02/2024 14:08:[facility] RESPIRATION 20 02/02/2024 14:08:24 [facility] SYSTOLIC BLOOD PRESSURE 129 11/24/2023 09:46:[facility] DIASTOLIC BLOOD PRESSURE 84 11/24/2023 09:46:[facility] PULSE OXIMETRY 97 11/24/2023 09:46:34 [facility] WEIGHT 148.2 11/24/2023 09:46:[facility] BMI 24 kg/m2 11/24/2023 09:46:[facility] PAIN 0 11/24/2023 09:46:[facility] HEIGHT 66 11/24/2023 09:46:[facility] TEMPERATURE 98.2 11/24/2023 09:46:[facility] PULSE 105 11/24/2023 09:46:[facility] RESPIRATION 18 11/24/2023 09:46:34 [facility] [place] [facility] Encounters Combined list of: 1) Encounters from Department of Veterans Affairs facilities going backup to the last 18 months, not all VA inpatient encounters are included; 2) Encounters from the Department of Defense facilities going backup to 280 months. Location Location Details Encounter Type Encounter Number Reason For Visit Attending Provider ADM Date DC Date Status Disposition Source [facility] Outpatient Encounter [id number] SEBASTIÁNHELGA REYNAN 01/15 [facility] Encounter [id number] HELGA LOWERY NDHEATHN 01/20 [facility] Outpatient Encounter [id number] 04/20 [facility] Out[facility] Encounter [id number] 05/17 [facility] Outpatient Encounter [id number] 05/18 [facility] Outpatient Encounter [id number] 05/19 [facility] Outpatient Encounter [id number] 05/21 [facility] OFFICE O/P EST MOD 30 MIN [id number] Diagnos is: ICD-10- CM R56.9 Unspeci fied convuls ions Spenser RAJPUT L 05/21 [facility] Outpatient Encounter [id number] 05/21 [facility] Outpatient Encounter [id number] Diagnos is: ICD-10- CM Z12.11 Encount er for screeni ng for maligna nt neoplas m of colon JANENE,TIFFANIE RISTINA 05/24 [facility] Outpatient Encounter [id number] 05/24 [facility] Outpatient Encounter [id number] 06/14 [facility] Outpatient Encounter [id number] 07/04 [facility] HEARING AID CHECK ONE EAR [id number] [id number] Diagnos is: ICD-10- CM H90.3 Sensori neural hearing loss, bilater al MERCEDEZ GORDON 07/05 [facility] OFFICE O/P EST MOD 30 MIN [id number] Diagnos is: ICD-10- CM H52.7 Unspeci fied disorde r of refract ivonne HOANG MA TTHEW C 07/11 [facility] Outpatient Encounter [id number] 07/12 [facility] Outpatient Encounter [id number] 07/19 [facility] Outpatient Encounter [id number] HELGA LOWERY NDOLYN 07/21 [facility] Outpatient Encounter [id number] 07/25 [facility] OFFICE O/P NEW MOD 45 MIN [id number] Diagnos is: ICD-10- CM G40.009 Local-r el idio epi w seiz of loc onst,no t ntrct,w /o stat epi KRISTAN,Jasmyne UAN 07/26 [facility] Outpatient Encounter [id number] 07/29 [facility] Outpatient Encounter [id number] 08/01 [facility] Outpatient Encounter [id number] 08/12 [facility] Outpatient Encounter [id number] 08/17 [facility] Outpatient Encounter [id number] 08/17 [facility] CLEAN/INSP ECT CAT COMP DENT [id number] [id number] Diagnos is: ICD-10- CM Z01.20 Encount er for dental exam and cleanin g w/o abnorma l finding s MUNTEEVANSSA BLE A 08/26 [facility] Outpatient Encounter [id number] Jasmyne RUSHING UAN 08/29 [facility] Outpatient Encounter [id number] 08/30 [facility] Outpatient Encounter [id number] [id number] 09/02 [facility] Outpatient Encounter [id number] [id number] 1 09/05 [facility] Outpatient Encounter [id number] [id number] HELGA LOWERYN 09/08 [facility] Outpatient Encounter [id number] [id number] 09/26 [facility] Outpatient Encounter [id number] 09/26 [facility] Outpatient Encounter [id number] 10/04 [facility] OFFICE O/P EST LOW 20 MIN [id number] Diagnos is: ICD-10- CM R56.9 Unspeci fied convuls ions Jasmyne RUSHING RUTH 10/11 [facility] Outpatient Encounter [id number] 10/12 [facility] Outpatient Encounter [id number] 10/14 [facility] HEARING AID SUP/ACCESS /DEV [id number] [id number] Diagnos is: ICD-10- CM H90.3 Sensori neural hearing loss, bilater SHERMAN Valle 10/18 [facility] Outpatient Encounter [id number] 10/21 [facility] Outpatient Encounter [id number] [id number] 10/26 [facility] Outpatient Encounter [id number] [id number] 1 11/23 [facility] OFFICE O/P EST LOW 20 MIN [id number] Diagnos is: ICD-10- CM R56.9 Unspeci fied convuls ions Spenser RAJPUT 11/23 [facility] HC PRO PHONE CALL 5-10 MIN [id number] Diagnos is: ICD-10- CM R56.9 Unspeci fied convuls ions DOMINIC,CY NTHIA A 01/09 [facility] Outpatient Encounter [id number] DANIEL RHODES RET 01/31 [facility] Outpatient Encounter [id number] [id number] 01/31 [facility] Outpatient Encounter [id number] [id number] HELGA LOWERYN 01/31 [facility] Outpatient Encounter [id number] [id number] 02/01 [facility] Outpatient Encounter [id number] [id number] HELGA LOWERY NDHEATHN 02/01 [facility] Outpatient Encounter [id number] 02/01 [facility] OFFICE O/P EST LOW 20 MIN [id number] Diagnos is: ICD-10- CM R56.9 Unspeci fied convuls ions Spenser RAJPUT 02/01 [facility] Outpatient Encounter [id number] HELGA LOWERY NDHEATHN 02/02 [facility] Outpatient Encounter [id number] [id number] 02/03 [facility] Outpatient Encounter [id number] 02/20 [facility] En[facility] [id number] 5 02/28 [facility] OFFICE O/P EST HI 40 MIN [id number] [id number] Diagnos is: ICD-10- CM G40.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, ntrct, w/o stat epi JOE,FUR QAN 03/06 [facility] Outpatient Encounter [id number] 03/06 [facility] Outpatient Encounter [id number] [id number] 03/24 [facility] Outpatient Encounter [id number] [id number] 04/10 [facility] Outpatient Encounter [id number] [id number] HELGA LOWERY ZEN 04/17 [facility] Outpatient Encounter [id number] [id number] SEBASTIÁNHELGA ZALDIVAR 04/18 [facility] Outpatient Encounter [id number] [id number] 04/24 [facility] PH1 ASSMT&MGMT NQHP 5-10 [id number] [id number] Diagnos is: ICD-10- CM R56.9 Unspeci fied convuls ions DOMINIC,CY NTHIA A 05/04 [facility] Outpatient Encounter [id number] HELGA LOWERY NDOLYN 05/19 [facility] Outpatient Encounter [id number] [id number] 05/22 [facility] OFFICE O/P EST LOW 20 MIN [id number] Diagnos is: ICD-10- CM R56.9 Unspeci fied convuls ions Spenser RAJPUT 05/22 [facility] Outpatient Encounter [id number] 05/22 [facility] Outpatient Encounter [id number] 05/23 [facility] Outpatient Encounter [id number] [id number] 05/31 [facility] Outpatient Encounter [id number] 06/02 [facility] Outpatient Encounter [id number] [id number] HELGA LOWERY NDOLYN 06/09 [facility] Outpatient Encounter [id number] [id number] 06/20 [facility] Outpatient Encounter [id number] [id number] 06/27 [facility] PH1 ASSMT&MGMT NQHP 5-10 [id number] Diagnos is: ICD-10- CM Z02.9 Encount er for adminis trative examina tions, unspeci DORIAN Stark NTHIA A 06/29 [facility] Outpatient Encounter [id number] 06/30 [facility] Outpatient Encounter [id number] HELGA LOWERY NDOLYN 07/03 [facility] Social History Combined list of available smoking, tobacco, and other social history from Department of Defense and Veterans Affairs facilities. Social History Type Response Date Comment Sourc e Tobacco smoking status NHIS VA-TOBACCO USER EVERY DAY 11/24/2023 [facility] History of tobacco use VA-TOBACCO USE WI 30 MIN OF WAKEUP 11/24/2023 [facility] History of tobacco use VA-TOBACCO USE WI 30 MIN OF WAKEUP 11/23/2022 [facility] History of tobacco use VA-TOBACCO USE WI 30 MIN OF WAKEUP 12/15/2021 [facility] History of tobacco use VA-TOBACCO USER E VERY DAY 09/17/2020 [facility] History of tobacco use VA-TOBACCO USE CO UNSEL NO 08/21/2019 [facility] History of tobacco use VA-TOBACCO USE CO UNSEL NO 09/15/2018 [facility] History of tobacco use CURRENT TOBACCO USER 08/03/2012 [facility] Plan of Care List of future care activities from Department of Veterans Affairs facilities. Additional future care activities may be listed in the Assessment and Plan section. Date/Time Care Activity Care Activity Detail Facili ty 07/11/2024 AMBULATORY - SURGERY [facility]
--- OUTSIDE RECORDS SUMMARY | 2024-07-10 12:46 | XMS_ITS | Data Portability ---
Author Organization [facility] SIAlexander Mccallum Address [address] [place] [address] Assessment No assessment recorded. Plan of Treatment Reminders Order Date Submit Date Provider Last Modified By Organization Details Last Modified Time Details Appointments None recorded. Lab None recorded. Referral None recorded. Procedures None recorded. Surgeries None recorded. Imaging None recorded. Medication Orders cetirizine 10 mg tablet 2016 017 [facility] [address] [place], [address], 7 18:30:07 fluticason e propionate 50 mcg/actuat ion nasal spray,susp ension 2016 017 INTERFACE [facility] [address] [place], [address], 7 18:30:06 Patient TargetsNo targets recorded. Patient Instructions Encounter Date Encounter Id Patient Instructions Last Modified By Organization Details Last Modified Time 10/02/2016 [id number] headache: care instructions [email or web address] Not available 10/06/2016 16:16:51 follow up as needed [email or web address] Not available 10/02/2016 18:58:06 Reason for Referral None Reported. Problems No Known Problems Medical Equipment None Reported. Allergies No known drug allergies Medications Name Sig Start Date Stop Date Status Note LastModified by Organization Details LastModified Time cetirizine 10 mg tablet Take 1 tablet every day by oral route as needed. 2016 active Not Available Not Available Not Avai lable fluticasone propionate 50 mcg/actuatio n nasal spray,suspen avel [place] 1 spray every day by intranasal route. active Not Available Not Available No t Available Vitals Date Recorded Body weight Oxygen saturation Oxygen saturation in Arterial blood by Pulse oximetry Heart rate Body temperature Systolic blood pressure Diastolic blood pressure Provider Name and Address Organization Details Last Updated DateTime 7 04641.2 2 g 97 % 97 % 83 /min 98.7 [degF] 134 mm[Hg] 82 mm[Hg] Ankita Mcneill [place] [facility] 7 18:14:02 Social History None recorded. Functional Status None recorded. Mental Status None recorded. Family History Nothing Reported. Medical History No medical history recorded. Past Encounters Encounter ID Performer Location Encounter Start Date Encounter Closed Date Diagnosis/Indication Diagnosis SNOMED-CT Code Diagnosis ICD10 Code Diagnosis Note [id number] Mikayla Gupta [address] [address] 10/02/2016 17:53:40 10/07/2016 12:25:58 Headache 61056509 R51 Rhinitis 88823960 J00 Health Concerns Section Related Observation LastModified by Organization Detai ls LastModified Time None Recorded Concern Status LastModified by Organization Details LastModified Time None Recorded Advance Directives Directive None Recorded Payers Encounter Date Sequence Insurance Name Policy Number Policy Walker Covered Member ID Walker Member ID Guarantor Name 10/02/2016 2 [place] Soo Murillo [id number] Soo Murillo Sr 10/02/2016 1 [place] [id number] Soo Murillo Sr [id number] oSo Murillo Sr Notes Date Note Type Note Provider Name and Address Organization Details Recorded Time 10/02/2016 text/html Merida and ringing in ears since Wednesday Mikayla mccollum [place] 10/02/2016 19:00:08
--- OUTSIDE RECORDS SUMMARY | 2024-07-10 12:46 | XMS_ITS | Encounter Summary ---
Author Name [facility] [place] [facility] Address [address] [place] [address] Care Team Providers Care Extension Educator Name Role Phone NADIR RAJPUT Primary Care Provider Unavail le Insurance Providers: All historical and current Section Date Range: From patient's date of to the date document was created. This section includes the names of all active insurance providers for the patient. Insurance Provider Type of Coverage Plan Name Start of Policy Coverage End of Policy Coverage Group Number Member ID Insurance Provider's Telephone Number Policy Walker's Name Patient's Relationship to Policy Walker CARELAVINA ([id number]) RX PRESCRIPT ION [employer] S Jun 18, 2015 [id number] [phone] OTF JUSTIN PATIENT MEDICARE (WNR) MEDICARE (M) PART A Jan 17, 2021 PART A [id number] AMPARO JUSTIN SR PATIENT Selected Encounter This section includes the information on record at [place] for the Encounter. Date/Time Encounter Type Encounter Description Reason Provider Source Oct 19, 2023 01:15 PM HEARING AID SUP/ACCESS/DEV AUDIOLOGY ICD-10-CM H90.3 Sensorineural hearing loss, bilateral NATALIE COLEMAN E Encounter Template Text not used by [place] Assessments - Encounter Diagnoses This section includes the primary and secondary diagnoses documented for the Encounter. Date/Time Primary/Secondary Diagnosis Diagnosis Name Provider Source Oct 19, 2023 01:21 PM PRIMARY Sensorineural hearing loss, bilateral NATALIE COLEMAN [facility] Plan of Treatment: Future Appointments (+ 6 months) and Future Tests (+/- 45 days) The Plan of Treatment section includes future care activities for the patient from all [place] [facility] This section includes future appointments and future orders which are active, pending or scheduled. Future Appointments This section includes appointments that were scheduled to occur 6 months from the date of the Encounter, up to a maximum of 20 appointments. The data comes from all [facility]. Appointment Date/Time Appointment Type Appointme nt Facility Name Nov 24, 2023 09:30 AM AMBULATORY MEDICINE [facility] Feb 02, 2024 02:00 PM [facility] Mar 06, 2024 10:00 AM AMBULATORY [facility] Active, Pending, and Scheduled Orders This section includes a listing of several types of active, pending, and scheduled orders, including clinic medications orders, diagnostic test orders, procedure orders and consult orders; where the start date of the order is 45 days before the date of the Encounter or 45 days after the date of theEncounter. The data comes from all [facility]. Test Date/Time Test Type Test Details Facility Name Nov 24, 2023 12:00 AM Laboratory - Chemi stry Order OCCULT BLOOD FIT X1 SCREEN STOOL FECES SP [facility] Encounter Notes: All associated encounter notes This section contains the clinical notes associated to the Encounter. Date/Time Encounter Note(s) Provider Source Oct 19, 2023 01:15 PM AUDIOLOGY LACROSSE PLAYER NOTE: LOCAL TITLE: HEARING AIDS STL STANDARD TITLE: AUDIOLOGY LACROSSE PLAYER NOTE DATE OF NOTE: OCT 19, 2023@13:15 ENTRY DATE: OCT 19, 2023@13:15:24 AUTHOR: NATALIE COLEMAN EXP COSIGNER: URGENCY: STATUS: COMPLETED SUBJECT: audio HEARING AIDS STL Has ADDENDA HEARING AID CHECK: Pt dropped off both aids with c/o repair needed and batteries needed : 11/26/20 FERN PHONAK NIGELEO P90-312 SEAMUS R [id number] 11/26/20 SONOVA PHONAK AUDEO P90-312 SEAMUS L [id number] Examination of aids received c-shells were damaged and security team lead wires broken. Sent both aids to [employer] for factory repair. Called pt and notified of repair actions. Will have aids RTC. Pt prefers to be called for p/u. [phone] Placed order in ROES for batteries and filters. Pt has lost all of his spare hearing aids. He asked about receiving Pocket talker. He has experience with device prior to 2012. Placed order in ROES. Pt confirmed understanding of it's set up and use. Shipped to pt's new address (updated in [facility] only) [address] [place] [address] Consideration of new aids in 11/26/24 rec; 1. When 2020 aids RTC, call pt for p/u. /miles/ Micky SO Staff Residential Plumber, Surgery Service Signed: 10/19/2023 13:32 11/01/2023 ADDENDUM STATUS: COMPLETED Both aids RTC, certified, settings saved per invoice. [facility]. Placed aids at front desk coordinator p/u bin. 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 /miles/ KRYS BOWEN Signed: 11/15/2023 11:44 NATALIE COLEMAN [facility]
--- OUTSIDE RECORDS SUMMARY | 2024-07-10 12:46 | XMS_ITS | Clinical Summary ---
Author Organization [facility] Address [address] [place] [address] Care Team Providers Care Manager Of Hospital Name Role Phone Unavailable Primary Care Provider Unavailabl e Source Comments [facility],non-owned Affiliates and Associated Physician Practices is amultiple site organization consisting of ambulatory clinics and hospital sitesin [place], [place], [place] and [place]. This disclosure is being madepursuant to the Care Everywhere program and may not contain all information available regarding this patient. Last updated 18.[facility] Allergies No known active allergies Medications * Be aware that medications may not be up to date on this document. Alwaysverify current medications with the patient. Medication Sig Dispensed Refills Start Date End Date Status HYDROcodone-acetaminop hen (NORCO) 5-325 MG tablet Take 1-2 Tabs by mouth every 6 hours as needed for Pain 15 Tab 08/04/2016 Active tiZANidine (ZANAFLEX) 4 MG tablet Take 1 Tab by mouth every 8 hours as needed for Muscle Spasms 15 Tab 08/04/2016 Active Social History Tobacco Use Types Packs/Day Years Used Date Smoking Tobacco: Never Assessed Sex and Gender Information Value Date Recorded Sex Assigned at Not on file Gender Identity Not on file Sexual Orientation Not on file Last Filed Vital Signs Vital Sign Reading Time Taken Comments Blood Pressure 145/88 08/04/2016 1:21 AM CDT Pulse 82 08/04/2016 1:21 AM CDT Temperature 36.4 C (97.5 F) 08/04/2016 1:21 AM CDT Respiratory Rate 16 08/04/2016 1:21 AM CDT Oxygen Saturation 100% 08/04/2016 1:21 AM CDT Inhaled Oxygen Concentration - - Weight 70.9 kg (156 lb 3.2 oz) 08/04/2016 1:21 A M CDT Height 185.4 cm (6' 1 ) 08/04/2016 1:21 AM CDT Body Mass Index 20.61 08/04/2016 1:21 AM CDT Plan of Treatment Health Maintenance Due Date Last Done Comments COLOGUARD (AGES 45-75) - COL ON CA SCREENING 1966 COLON MONITORING 1966 COLONOSCOPY - COLON CA SCREENING 1966 CT COLONOGRAPHY - COLON CA SCREENING 1966 Colorectal Cancer Screening 1966 FIT - COLON CA SCREENING 1966 FLEX SIG - COLON CA SCREENING 1966 LIPID TESTING 1966 HIV SCREENING 1981 HEPATITIS C SCREENING 04/08/1984 DTAP/TDAP/TD VACCINES (1 - Tdap) 1985 HEPATITIS B VACCINE (1 of 3 - 19+ 3-dose series) 1985 PNEUMOCOCCAL VACCINE 50+ (1 of 1 - PCV) 2016 ZOSTER VACCINE (1 of 2) 2016 COVID-19 VACCINE (1 - 2023-2 5 season) 2023 INFLUENZA VACCINE (#1) 2023 DEPRESSION SCREENING 04/19/2024 HIB VACCINE Aged Out No longer eligi ble based on patient's age to complete this topic HPV VACCINE Aged Out No longer eligi ble based on patient's age to complete this topic MENINGOCOCCAL (Group B) VACC INE SHARED DECISION-MAKING Aged Out No longer eligibl e based on patient's age to complete this topic MENINGOCOCCAL GROUPS A/C/Y/W VACCINE Aged Out No longer eligible b ased on patient's age to complete this topic PNEUMOCOCCAL VACCINE Aged Out No long er eligible based on patient's age to complete this topic Guarantor Name Account Type Relation to Patient Date of Phone Billing Address [id number] Workers Comp Employer 1965 [address] [place] [address] Soo Murillo Workers Comp Self [address] [place] [address] [id number] Workers Comp Employer [address] [place] [address] Soo Murillo Personal/Family Self [address] [place] [id number]
--- OUTSIDE RECORDS SUMMARY | 2024-07-10 12:46 | XMS_ITS | Encounter Summary ---
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 Date/Time Encounter Type Encounter Description Reason Provider Source Oct 12, 2023 01:00 PM OFFICE O/P EST LOW 20 MIN NEUROLOGY ICD-10-CM R56.9 Unspecified convulsions KRISTANMARCY IHE Encounter Template Text not used by [place] Assessments - Encounter Diagnoses This section includes the primary and secondary diagnoses documented for the Encounter. Date/Time Primary/Secondary Diagnosis Diagnosis Name Provider Source Oct 22, 2023 06:25 PM PRIMARY Unspecified convulsions MARCY RUSHING [facility] Plan of Treatment: Future Appointments (+ 6 months) and Future Tests (+/- 45 days) The Plan of Treatment section includes future care activities for the patient from all [place] [facility] This section includes future appointments and future orders which are active, pending or scheduled. Future Appointments This section includes appointments that were scheduled to occur 6 months from the date of the Encounter, up to a maximum of 20 appointments. The data comes from all [place] treatment facilities. Appointment Date/Time Appointment Type Appointme nt Facility Name Nov 24, 2023 09:30 AM AMBULATORY - MEDICINE [facility] Feb 02, 2024 02:[address] [facility] Mar 06, 2024 10:00 AM AMBULATORY - MEDICINE [facility] Active, Pending, and Scheduled Orders This section includes a listing of several types of active, pending, and scheduled orders, including clinic medications orders, diagnostic test orders, procedure orders and consult orders; where the start date of the order is 45 days before the date of the Encounter or 45 days after the date of theEncounter. The data comes from all [facility]. Test Date/Time Test Type Test Details Facility Name Nov 24, 2023 12:00 AM Laboratory - Chemi stry Order OCCULT BLOOD FIT X1 SCREEN STOOL FECES SP [facility] Encounter Notes: All associated encounter notes This section contains the clinical notes associated to the Encounter. Date/Time Encounter Note(s) Provider Source Oct 12, 2023 01:12 PM NEUROLOGY OUTPATIE NT NOTE: LOCAL TITLE: NEUROLOGY OUTPATIENT FOLLOW UP STL STANDARD TITLE: NEUROLOGY OUTPATIENT NOTE DATE OF NOTE: OCT 12, 2023@13:12 ENTRY DATE: OCT 12, 2023@13:12:16 AUTHOR: KENNETH BO EXP COSIGNER: MARCY RUSHING URGENCY: STATUS: COMPLETED NEUROLOGY OUTPATIENT FOLLOW UP STL Has ADDENDA NEUROLOGY OUTPATIENT TYPE OF ASSESSMENT Follow up; [facility] visit History of Present Illness Per Dr. Rushing: Mr. Justin is a 58 yo right handed gentleman. He stated that he had a first seizure on January. He said that he was at home alone waiting for his daughter at night. The next thing, he found himself on the floor in a closet. He said that soon after his came and he had another seizure. 911 was called and he was taking to the hospital and he was started on levetiracetam 500mg bid. After that and during 2022 he has 3-4 spells. Mr. Justin stated that he has an aura that is a smell and a feeling of disorientation and 15-20 minutes later he has a seizure. Per his , Mr. Justin becomes silent, stares and does not respond and then his body becomes stiff, his head hyperextends and shakes fast and his arms are either flexed at the elbows and gas pumper, hands on a fist position and his legs stiff and extended. This last for about 30 sec to one minute. Afterwards he is drowsy, sleepy. The last spell was in mid February 2023. Following that spell the dose of levetiracetam was adjusted again to 1500mg twice daily. Last spell was July 27, 2023. He stated that work up includes brain MRI and actually it had one done here on 07/04 and he had a EEG that he said is normal. He stated his PCP requested records from his neurologist Dr. Hess in [place]. Interval: August 04, patient had a seizure which was the same as previous seizures, admitted for [facility] for it. He states he has had a seizure every 4-6 months, and he cannot drive, but needs it to be written on the paperwork for his job. Endorses good tolerance of the medication. ALLERGIES: Patient has answered NKA PAST MEDICAL & SURGICAL HISTORY 1) Cannabis abuse (SNOMED CT 07295575) 2) Erectile dysfunction (SNOMED CT 314712358) 3) Tobacco User (SCT 957100402) 4) Hearing Loss (SCT 77578845) 5) Drinks alcohol 6) Vitamin D Deficiency (SCT 5370633) 7) Mood disorder 8) Pain of right shoulder joint 9) Tinnitus 10) Seizure (SCT 01197632) 11) Malnutrition (calorie) FAMILY HISTORY SOCIAL HISTORY REVIEW OF SYSTEMS Constitutional: Patient denies fever, weight loss, malaise, chills, and recent infections Cardiac: Patient denies CP, SOB, palpitations Respiratory: Patient denies breathing difficulties, orthopnea, paroxysmal dyspnea, wheezing Gastrointestinal: Patient denies abdominal pain, changes in bowel habits, diarrhea or constipation Genitourinary: Patient denies dysuria, changes in frequency of urination, hematuria, and incontinence Endocrine: Patient denies sweating, excessive weight gain or loss, polyuria, polydipsia, intolerance to temperature changes. PHYSICAL EXAMINATION VITALS: Temperature: 97.7 F [36.5 C] (05/21/2023 09:38) Blood Pressure: 116/80 (05/21/2023 09:38) Pulse: 105 (05/21/2023 09:38) Respirations: 20 (05/21/2023 09:38) Height: 72 in [182.9 cm] (05/21/2023 09:38) Weight: 145 lb [65.77 kg] (05/21/2023 09:38) Tele-encounter Mental Status: Alert and oriented x 3, answers questions appropriately Speech clear, fluent and coherent, conversation appropriate awake, alert, no apparent distress REVIEW OF DATA/OTHER INFORMATION IMPRESSION: 58 year old BLACK OR MALE presenting for management of epilepsy. Discussed switching medication to Oxcarbamazepine to control partial complex that lead to generalized seizures. Discussed weaning off of Keppra given lack of seizure control. Patient agreeable. Shared with patient that we will be unable to fill out disability form as the recommendation is to not drive, but not associated with work. PLAN: - Wean Keppra 750 mg BID x1 week, then stop - Start Oxcarbazepine 300 mg BID - Patient to bring paperwork to office tomorrow to be filled out for his job - Discussed seizure precautions - F/u in 3 months Discussed and examined patient with attending physician: Dr. Rushing. /miles/ Kenneth Bo M.D. Resident Physician Signed: 10/12/2023 14:17 /miles/ MARCY RUSHING MD NEUROLOGY STAFF PHYSICIAN Cosigned: 10/12/2023 15:22 10/12/2023 ADDENDUM STATUS: COMPLETED Patient seen and examined with resident physician Dr. Bo via telemedicine. Case discussed and chart reviewed. I agree with the assessment and recommendations as noted. Summary: Briefly, patient is a 58 y.o. gentleman seen in follow-up from his first appointment on July. He carries a diagnosis of epilepsy. He has been on levetiracetam up to 1500 mg twice a day. Last visit he was a stable but then on August 04 he had another spell. Review medical records provided by [facility]. She he was seen on April [address] Deshawn Novak who was stated that the patient had presented due to seizure-like activity. He is come home from work and found patient with a bump on his head. Later to witness an event described as him clenching his arms and grabbing his head . EMS was called and he was given a dose of Valium and Haldol due to agitation. On arrival to the emergency room he was a still altered but eventually regained consciousness. UDS was positive for marijuana. MRI and EEG were normal. He was discharged on Keppra but he did not take it. He had another episode on March 2022 that brought him to the emergency room. He has been taking Keppra 500 mg twice a day. Prior to a seizure he had a smell of the eye block. He initially was having sleepiness with the Keppra. However this has subsided. He reports afterwards he has weakness in the right hand. After the most recent seizure he has persistent weakness in the right hand. He is not driving since the last seizure in March 2022. He denies any family history of seizures. He drinks 4 beers per day and he smokes marijuana . He was seen in follow-up on May 14, 2022 and is written that he has had a breakthrough seizure in August 2022 that was seemingly unprovoked. Keppra was increased to 1000 mg twice daily. He had another seizure a few weeks ago. Patient felt that it was triggered because he was tired and dehydrated. He is not driving. After the last seizure he started taking 1000 mg tablets of Keppra instead of 500 mg. The dose of Keppra was recommended to be increased but the patient declined. He was seen on follow-up on June 17, 2023 indicating that his last seizure was in February 2023. He was drinking heavily the day before and he was dehydrated the day of the seizure. He reports good compliance with the Keppra. He was taking Keppra 1500 mg in the morning and 1000 mg at bedtime. The dose of Keppra was increased to 1500 mg twice daily. Clinical Impression: Presumed epilepsy with breakthrough spells despite of levetiracetam 1500 mg twice a day. This is considered a medication failure. We recommend switching him to oxcarbazepine. Seizure restrictions are to be continued. No driving or operating heavy machinery. This does not constitute that he is disabled for working. The restriction is only for driving. I already provided him with a letter in this regard on September 02, 2023. Treatment plan: As outlined by Dr. Bo Follow-up care: 3 months Patient to go to ER if new symptoms develop. Patient call if any questions arise or if patient experiences side effects to any prescribed medication. /es/ MARCY RUSHING MD NEUROLOGY STAFF PHYSICIAN Signed: 10/12/2023 15:35 KENNETH BO [facility]
--- OUTSIDE RECORDS SUMMARY | 2024-07-10 12:46 | XMS_ITS ---
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 Date/Time Encounter Type Encounter Description Reason Pro vider Source August 18, 2023 02:28 PM Outpatient Encounter NON-OR ANESTHESIA PROCEDURES IHE Encounter Template Text not used by [place] Plan of Treatment: Future Appointments (+ 6 months) and Future Tests (+/- 45 days) The Plan of Treatment section includes future care activities for the patient from all [place] [facility]. This section includes future appointments and future orders which are active, pending or scheduled. Future Appointments This section includes appointments that were scheduled to occur 6 months from the date of the Encounter, up to a maximum of 20 appointments. The data comes from all [place] treatment facilities. Appointment Date/Time Appointment Type Appointme nt Facility Name August 27, 2023 01:00 PM AMBULATORY - NONE [facility] Oct 12, 2023 01:00 PM AMBULATORY - MEDICINE [facility] Nov 24, 2023 09:30 AM [facility]ORY [facility] Feb 02, 2024 02:00 PM [facility]
--- OUTSIDE RECORDS SUMMARY | 2024-07-10 12:46 | XMS_ITS | Encounter Summary ---
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 Date/Time Encounter Type Encounter Description Reason Provider Source Feb 01, 2024 08:35 AM Outpatient Encounter ADMIN PAT ACTIVTIES (MASNONCT) KOBI RHODES Encounter Template Text not used by [place] Plan of Treatment: Future Appointments (+ 6 months) and Future Tests (+/- 45 days) The Plan of Treatment section includes future care activities for the patient from all [place] [facility] This section includes future appointments and future orders which are active, pending or scheduled. Future Appointments This section includes appointments that were scheduled to occur 6 months from the date of the Encounter, up to a maximum of 20 appointments. The data comes from all [facility]. Appointment Date/Time Appointment Type Appointme nt Facility Name Feb 02, 2024 02:00 PM AMBULATORY - MEDICINE [facility] Mar 06, 2024 10:00 AM AMBULATORY - MEDICINE [facility] May 22, 2024 01:30 PM AMBULATORY - MEDICINE [facility] Jul 11, 2024 01:00 PM AMBULATORY - SURGERY [facility] Jul 11, 2024 02:00 PM AMBULATORY - NONE [facility] Active, Pending, and Scheduled Orders This section includes a listing of several types of active, pending, and scheduled orders, including clinic medications orders, diagnostic test orders, procedure orders and consult orders; where the start date of the order is 45 days before the date of the Encounter or 45 days after the date of theEncounter. The data comes from all [facility]. Test Date/Time Test Type Test Details Facility Name Feb 02, 2024 12:00 AM Laboratory - Chemistry Order OCCULT BLOOD FIT X1 SCREEN STOOL FECES SP [facility] Mar 06, 2024 12:00 AM Laboratory - Chemistry Order COMPREHENSIVE METABOLIC PANEL GREEN LI/HEP BLD/PLAS PLASMA SP [facility] Mar 06, 2024 12:00 AM Laboratory - Chemistry Order CBC BLOOD SP [facility] Encounter Notes: All associated encounter notes This section contains the clinical notes associated to the Encounter. Date/Time Encounter Note(s) Provider Source Feb 01, 2024 08:35 AM TELEHEALTH NOTE: LOCAL TITLE: TELE EMERGENCY CARE VENDING MANAGER NOTE STANDARD TITLE: TELEHEALTH NOTE DATE OF NOTE: FEB 01, 2024@08:35 ENTRY DATE: FEB 01, 2024@08:41:40 AUTHOR: KOBI RHODES EXP COSIGNER: URGENCY: STATUS: COMPLETED [place] referred from: [place]'s name, last 4, and were verified. 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 Able to speak complete sentences with ease. Skin Assessment: Subjective/Chief Complaint: 58yo with epilepsy, seizure 2 weeks ago. no current symptoms. he has been in contact with neurology. he cancelled appt and is switching to a different neuro provider. but they did increase his medication dose. he refused ER or tele md provider today. states he just needs appt with pcp to fill out some paperwork. connected with [facility] schedule line. no further needs at this time. Safety Assessment: Are you living in a safe environment? Yes Are you carrying any weapons or contraband? No Past Medical History/Active Problems: JERMAINE - Active Problems 11 Active Problems PROBLEM LAST MOD PROVIDER Cannabis Abuse 08/03/2012 PHOEBE MOMIN UDS + cannabis 07/27/2012 Erectile dysfunction 04/10/2020 BLAYNE DIEGO Tobacco user 10/25/2018 DAVY,WILL Hearing loss 10/25/2018 DAVY,WILL Drinks alcohol 09/23/2021 NADIR RAJPUT Vitamin D deficiency 12/15/2021 NADIR RAJPUT Mood disorder 12/15/2021 NADIR RAJPUT Pain of right shoulder joint 12/15/2021 NADIR RAJPUT Tinnitus 01/19/2022 NADIR RAJPUT Seizure 11/23/2022 NADIR RAJPUT Malnutrition (calorie) 05/21/2023 NADIR RAJPUT Allergies/Adverse Reactions No allergy(ies) or New allergy(ies) reported by at this time. Current Medications: Active Outpatient Medications (including Supplies): LEVETIRACETAM 750MG TAB TAKE TWO TABLETS BY MOUTH TWICE A ACTIVE DAY FOR SEIZURES SWALLOW WHOLE, DO NOT CRUSH OR CHEW. OXCARBAZEPINE 300MG TAB TAKE ONE TABLET BY MOUTH EVERY ACTIVE MORNING AND TAKE TWO TABLETS EVERY EVENING FOR SEIZURES Non-VA CHOLECALCIFEROL (LOW DOSE VIT D) - (OTC) TAB BY ACTIVE MOUTH Vital Signs (Historical/Last 3): Measurement DT TEMP RESP PULSE BP POx F(C) (L/MIN)(%) 11/24/2023 09:46 98.2(36.8) 18 105 129/84 97 05/21/2023 09:38 97.7(36.5) 20 105 116/80 95 12/16/2022 11:49 Measurement DT PAIN WEIGHT HEIGHT LB(KG)[BMI] IN(CM) 11/24/2023 09:46 0 148.2(67.22)[24] 66(167.64) 05/21/2023 09:38 0 145(65.77)[20] 72(182.88) 12/16/2022 11:49 147(66.68)[19] Emergency Severity Index (CHANI) level Level 4 Disposition: Other: transferred to [facility] to schedule with pcp Time Spent: 8minutes /miles/ KOBI DELGADO RN REGISTERED NURSE Signed: 02/01/2024 08:51 KOBI RHODES [facility]
--- OUTSIDE RECORDS SUMMARY | 2024-07-10 12:46 | XMS_ITS | Encounter Summary ---
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 Date/Time Encounter Type Encounter Description Reason Provider Source May 22, 2024 01:30 PM OFFICE O/P EST LOW 20 MIN PRIMARY CARE/MEDICINE ICD-10-CM R56.9 Unspecified convulsions SHYANNE RAJPUT Fabian Encounter Template Text not used by [place] Assessments - Encounter Diagnoses This section includes the primary and secondary diagnoses documented for the Encounter. Date/Time Primary/Secondary Diagnosis Diagnosis Name Provider Source May 22, 2024 02:36 PM PRIMARY Unspecified convulsions NADIR RAJPUT [facility] May 22, 2024 02:36 PM SECONDARY Male erectile dysfunction, unspecified NADIR RAJPUT [facility] May 22, 2024 02:36 PM SECONDARY Other problems related to lifestyle NADIR RAJPUT [facility] May 22, 2024 02:36 PM SECONDARY Tobacco use NADIR RAJPUT [facility] May 22, 2024 02:36 PM SECONDARY Unspecified hearing loss, unspecified ear NADIR RAJPUT [facility] May 22, 2024 02:36 PM SECONDARY Unspecified mood [affective] disorder NADIR RAJPUT [facility] May 22, 2024 02:36 PM SECONDARY Vitamin D deficiency, unspecified NADIR RAJPUT [facility] Plan of Treatment: Future Appointments (+ 6 months) and Future Tests (+/- 45 days) The Plan of Treatment section includes future care activities for the patient from all [facility]. This section includes future appointments and future orders which are active, pending or scheduled. Future Appointments This section includes appointments that were scheduled to occur 6 months from the date of the Encounter, up to a maximum of 20 appointments. The data comes from all [facility]. Appointment Date/Time Appointment Type Appointme nt Facility Name Jul 11, 2024 01:00 PM AMBULATORY - SURGERY [facility] Jul 11, 2024 02:00 PM AMBULATORY - NONE . [facility] August 28, 2024 12:00 PM AMBULATORY - NONE [facility] Active, Pending, and Scheduled Orders This section includes a listing of several types of active, pending, and scheduled orders, including clinic medications orders, diagnostic test orders, procedure orders and consult orders; where the start date of the order is 45 days before the date of the Encounter or 45 days after the date of theEncounter. The data comes from all [facility]. Test Date/Time Test Type Test Details Facility Name May 22, 2024 12:00 AM Laboratory - Chemi stry Order LIPID PANEL (STL) GREEN LI/HEP BLD/PLAS PLASMA SP ONCE [facility] May 22, 2024 12:00 AM Laboratory - Chemi stry Order COMPREHENSIVE METABOLIC PANEL GREEN LI/HEP BLD/PLAS PLASMA SP [facility] May 22, 2024 12:00 AM Laboratory - Chemi stry Order CBC BLOOD [facility] May 22, 2024 12:00 AM Laboratory - Chemi stry Order HGA1C BLOOD SP [facility] May 22, 2024 12:00 AM Laboratory - Chemi stry Order TSH W/ REFLEX FT4 (STL) GREEN LI-HEP PLASMA SP [facility] May 22, 2024 12:00 AM Laboratory - Chemi stry Order VITAMIN D, 25-HYDROXY GOLD/RED SST SERUM SP [facility] May 22, 2024 12:00 AM Laboratory - Chemi stry Order PROST. SPECIFIC AG.(PB-STL) GOLD/RED SST SERUM [facility] Lab Results: +/- 30 days of the encounter This section includes the Chemistry and Hematology Lab Results on record with [facility] for the patient. Radiology Reports and Pathology Reports are provided separately, in subsequent sections. Lab Results This section contains the Chemistry/Hematology Results that were resulted 30 days before or 30 daysafter the date of the Encounter. Date/Time Source Result Type Result - Unit Interpretation Reference Range Comment May 19, 2024 12:00 PM [facility] OCCULT BLOOD FIT X1 SCREEN Specimen Type: FECES No comment entered. Ordering Provider: CARY RAJPUT Report Released Date/Time: May 22, 2024 03:26 PM Reporting Lab: [facility] [address] [facility] [id number] Performing Lab: [facility] [address] [facility] [id number] OCCULT BLOOD (FIT) #1 OF 1 Negative Negative Vital Signs: All taken on the encounter date This section contains inpatient and outpatient Vital Signs collected on the date of the Encounter. Date/Time Temperature Pulse Blood Pressure Respiratory Rate SP02 Pain Height Weight Body Mass Index Source May 22, 2024 01:45 PM 98.8 100 125/71 18 95 0 73 152.2 20 [facility] Social History: Smoking Status (Most current) and Tobacco Use (All prior to encounter date) This section includes the most current, and the historical, smoking and tobacco- related health factors from the [place] facility where the Encounter took place. Current Smoking Status This section includes the most current smoking, or tobacco-related health factor, from the [place] facility where the Encounter took place. Date/Time Current Smoking Status Comment Facil ity Nov 24, 2023 09:30 AM VA-TOBACCO USER EVERY DAY [facility] Tobacco Use History This section includes a history of the smoking, or tobacco-related health factors, that were collected on or before the date of the Encounter. The data comes from the [place] facility where the Encounter took place. 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 [facility] Nov 24, 2023 09:30 AM VA-TOBACCO USE MED NO [facility] Nov 24, 2023 09:30 AM VA-TOBACCO USE [place] 30 MIN OF WAKE UP [facility] Nov 24, 2023 09:30 AM VA-TOBACCO USER EVERY DAY [facility] Nov 23, 2022 11:00 AM VA-TOBACCO USE 30 YEARS OR MORE [facility] Nov 23, 2022 11:00 AM VA-TOBACCO USE ADVICE [facility] Nov 23, 2022 11:00 AM VA-TOBACCO USE 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 [facility] Nov 23, 2022 11:00 AM VA-TOBACCO USE MED NO [facility] Nov 23, 2022 11:00 AM VA-TOBACCO USE [place] 30 MIN OF WAKE UP [facility] Nov 23, 2022 11:00 AM VA-TOBACCO USER EVERY DAY [facility] Dec 15, 2021 03:00 PM VA-TOBACCO USE 30 YEARS OR MORE [facility] Dec 15, 2021 03:00 PM VA-TOBACCO USE ADVICE [facility] Dec 15, 2021 03:00 PM VA-TOBACCO USE 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 [facility] Dec 15, 2021 03:00 PM VA-TOBACCO USE MED NO [facility] Dec 15, 2021 03:00 PM VA-TOBACCO USE [place] 30 MIN OF WAKE UP [facility] Dec 15, 2021 03:00 PM VA-TOBACCO USER EVERY DAY [facility] Sep 17, 2020 11:00 AM VA-TOBACCO USE 30 YEARS OR MORE [facility] Sep 17, 2020 11:00 AM VA-TOBACCO USE ADVICE [facility] Sep 17, 2020 11:00 AM VA-TOBACCO USE 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 [facility] Sep 17, 2020 11:00 AM VA-TOBACCO USE MED NO [facility] Sep 17, 2020 11:00 AM VA-TOBACCO USE [place] 30 MIN OF WAKE UP [facility] Sep 17, 2020 11:00 AM VA-TOBACCO USER EVERY DAY [facility] August 21, 2019 02:46 PM VA-TOBACCO USE 30 YEARS OR MORE [facility] August 21, 2019 02:46 PM VA-TOBACCO USE ADVICE [facility] August 21, 2019 02:46 PM VA-TOBACCO USE 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 [facility] August 21, 2019 02:46 PM VA-TOBACCO USE MED NO [facility] August 21, 2019 02:46 PM VA-TOBACCO USE WI 30 MIN OF WAKE UP [facility] August 21, 2019 02:46 PM VA-TOBACCO USER EVERY DAY [facility] September 15, 2018 02:11 PM VA-TOBACCO USE > 1 5 LESS THAN 30 YEARS [facility] September 15, 2018 02:11 PM VA-TOBACCO USE 30 YEARS OR MORE [facility] September 15, 2018 02:11 PM VA-TOBACCO USE ADVICE [facility] September 15, 2018 02:11 PM VA-TOBACCO USE 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 [facility] September 15, 2018 02:11 PM VA-TOBACCO USE PERSONAL FITNESS MANAGER YES [facility] September 15, 2018 02:11 PM VA-TOBACCO USE MED NO [facility] September 15, 2018 02:11 PM VA-TOBACCO USE WI 30 MIN OF WAKE UP [facility] September 15, 2018 02:11 PM VA-TOBACCO USER EVERY DAY [facility] Aug 03, 2012 01:56 PM CURRENT TOBACCO USER [facility] Aug 03, 2012 01:56 PM TOBACCO MEDS OFFERED BUT DECLINE D [facility] Encounter Notes: All associated encounter notes This section contains the clinical notes associated to the Encounter. Date/Time Encounter Note(s) Provider Source May 25, 2024 09:15 AM PHYSICIAN LETTERS: LOCAL TITLE: TEST RESULT GENERAL LETTER STL STANDARD TITLE: PHYSICIAN LETTERS DATE OF NOTE: MAY 25, 2024@09:15 ENTRY DATE: MAY 25, 2024@09:15:04 AUTHOR: NADIR RAJPUT EXP COSIGNER: URGENCY: STATUS: COMPLETED [facility] [address] [place] [address] MAY 25, 2024 SOO JUSTIN [address] [place], [place] [address] Dear Soo Justin, I would like to update you on your recent test results. OCCULT BLOOD - Occult blood cards are a screening test for colon cancer. A negative (0) is a good result and means we found no blood in your stool samples. A positive result (1) is abnormal and you should have further testing. OCCULT BLOOD OCCULT BLOOD (FIT) #1 OF 1 Negative 05/19/2024 12:00 These readings are within normal limits. PLAN Please continue your treatment as we discussed during your visit. If you have any questions please call your outsole caser. I look forward to seeing you at your next clinic appointment. Thank you for choosing the [facility] for your healthcare. FUTURE APPOINTMENTS: 07/11/2024 13:00 BRIDGER-OPTOMETRY 2 08/28/2024 12:00 BRIDGER-DENTAL DMD2 05/23/2025 13:30 BRIDGER-NOCO PACT 7 PCP Sincerely, NADIR RAJPUT, MSN, AGNP-C NURSE PRACTITIONER SOO JUSTIN TAYLOR L [facility] May 22, 2024 01:48 PM NURSING NOTE: LOCAL TITLE: V15 PACT FACE TO FACE NOTE ST STANDARD TITLE: NURSING NOTE DATE OF NOTE: MAY 22, 2024@13:48 ENTRY DATE: MAY 22, 2024@13:49:03 AUTHOR: BETTY DE GUZMAN EXP COSIGNER: URGENCY: STATUS: COMPLETED Provider Visit: Patient Identifiers : Full Name Date of Reason for visit: Established Follow-Up Mode of Arrival: Ambulatory Allergy Review: Patient has answered NKA Allergy list reviewed and remains current. Recent Vital Signs: Temperature: 98.8 F [37.1 C] (05/22/2024 13:45) Pulse: 100 (05/22/2024 13:45) Respiration: 18 (05/22/2024 13:45) B/P: 125/71 (05/22/2024 13:45) Pain: 0 (05/22/2024 13:45) Wt: 152.2 lb [69.04 kg] (05/22/2024 13:45) Ht: 73 in [185.4 cm] (05/22/2024 13:45) BMI: 20.1 POX: 95% (05/22/2024 13:45) PERSONAL HEALTH INVENTORY Notes: No data available for PHI note titles PERSONAL HEALTH INVENTORY - MAP: 02/02/2024 Personal Health Plan [place], [place] (MAP) marriage 11/24/2023 Personal Health Plan [place] (MAP) My family 09/17/2020 Personal Health Plan [place] (MAP) Waking up everyday brings me kateryna and happiness What matters most to you in your life right now? -- [place]'s Response: family Would you like to discuss any personal problem, family problem, alcohol use, drug use, or a mental or emotional illness? No My [facility] ([facility]), please select appointment type: Face to face: Yes- Done Contact provided Primary Care phone number and encouraged to call if any questions or concerns. Review that after hours nurse line [phone] and emergency room are available 09/11 for patient use. Contact verbalized good understanding. Sexual Orientation - CP,L,N,P,PH,PS,S,U: The patient thinks of their sexual orientation as: Straight or Heterosexual Influenza Immunization - L,N,P,PH,U: Deferral / Refusal The patient declines to receive the recommended dose of seasonal influenza vaccine. Immunization: INFLUENZA, UNSPECIFIED FORMULATION Refusal Reason: PATIENT DECISION Patient refuses all immunization(s) in the FLU group Date Documented: 05/22/24 13:50 /miles/ BETTY DE GUZMAN LICENSED PRACTICAL NURSE Signed: 05/22/2024 13:50 BETTY DE GUZMAN [facility] May 22, 2024 01:44 PM PRIMARY CARE NOTE: LOCAL TITLE: PRIMARY CARE PROVIDER ESTABLISHED VISIT [facility] STANDARD TITLE: PRIMARY CARE NOTE DATE OF NOTE: MAY 22, 2024@13:44 ENTRY DATE: MAY 22, 2024@13:44:30 AUTHOR: NADIR RAJPUT EXP COSIGNER: URGENCY: STATUS: COMPLETED ESTABLISHED PATIENT [id number] REASON FOR VISIT/CHIEF COMPLAINT: follow up HPI: PMH, see problem list 59 y/o male who presents to the medical clinic for his scheduled follow up visit. The purpose of the visit today is to follow up on the veterans chronic medical conditions. Denies new concerns or complaints. Last PCP visit: 02/02/2024 Epilepsy w/ aura (disorientation/odd smell). [place] continued to experience seizures on Keppra 1500 mg BID. He was changed to oxcarbazepine by [place] neurology. [place] endorses he had a seizure on 05/02/2024 when he ran out of his meds. His prescription was delayed by the inclement weather. Denies recurrence in seizure since he restarting treatment. WHAT IS YOUR GOAL FOR TODAY? F/U chronic medical conditions SOURCE(S) OF HISTORY: -Patient PAST MEDICAL HISTORY: 1) Cannabis abuse (SNOMED CT 27954517) comment: UDS + cannabis 07/27/2012 2) Erectile dysfunction (SNOMED CT 609304728) 3) Tobacco User (SCT 118280934) 4) Hearing Loss (SCT 15512203) 5) Drinks alcohol 6) Vitamin D Deficiency (SCT 3159985) 7) Mood disorder 8) Pain of right shoulder joint 9) Tinnitus 10) Seizure (SCT 05569943) FAMILY HISTORY: DM: Daughter, DM I CAD/IHD: none MH: none CA: none SOCIAL HISTORY: Tobacco use: present user, smokes <1 PPD, smoking x 30 years ETOH use: denies recent use Illicit drug use: former user marijuana -Lives: lives with Allergy: Patient has answered NKA Allergy list reviewed and remains current. MEDICATIONS: Active Outpatient Medications (including Supplies): Active Outpatient Medications Status 1) LEVETIRACETAM 750MG TAB TAKE TWO TABLETS BY MOUTH TWICE A HOLD DAY SWALLOW WHOLE, DO NOT CRUSH OR CHEW. Indication: FOR SEIZURES 2) OXCARBAZEPINE 300MG TAB TAKE ONE TABLET BY MOUTH EVERY ACTIVE MORNING AND TAKE TWO TABLETS EVERY EVENING Indication: FOR SEIZURES 3) SILDENAFIL CITRATE 100MG TAB TAKE ONE-HALF TABLET BY MOUTH ACTIVE EVERY WEEK NEEDED (TAKE 60 MINUTES PRIOR TO SEXUAL ACTIVITY) - LIMIT 6 DOSES PER 30 DAYS Indication: FOR ERECTILE DYSFUNCTION Active Non-VA Medications Status 1) Non-VA CHOLECALCIFEROL (LOW DOSE VIT D) - (OTC) TAB BY MOUTH ACTIVE Indication: FOR VITAMIN D DEFICIENCY 4 Total Medications MEDICATION RECONCILIATION: completed REVIEW OF SYSTEMS: See HPI for further details of positive complaints. All 10 systems reviewed and otherwise negative. PHYSICAL EXAMINATION: VITALS (most recent, as listed in the electronic record): Temperature: 98.8 F [37.1 C] (05/22/2024 13:45) BP: 125/71 (05/22/2024 13:45) Pulse: 100 (05/22/2024 13:45) Resp: 18 (05/22/2024 13:45) PulsOx: 95% (05/22/2024 13:45) Pain: 0 (05/22/2024 13:45) Weight: Measurement DT WEIGHT LB(KG)[BMI] 05/22/2024 13:45 152.2(69.04)[20] 02/02/2024 14:08 159(72.12)[26] 11/24/2023 09:46 148.2(67.22)[24] PHYSICAL EXAMINATION: General appearance: well-groomed, well-nourished, in no distress HEENT: sclera/conjunctiva clear, TMs pearly gandara, nares patent no secretions or inflammation, oropharynx WNL Neck: supple, no lymphadenopathy or thyromegaly Cardiovascular: RRR, no murmur, no gallop Respiratory: CTA, no wheezes, crackles or rhonchi ABD/GI: normal contour, bs + in all quads, non-tender M/S: normal gait and posture Extremities: radial/PT pulses 2+, warm, well-perfused Psych: normal affect Neuro: Alert and oriented x 3 Skin: warm, dry, normal color and texture, skin intact DATA REVIEW: HGA1C 5.8 % 05/21/2023 09:54 HGA1C 5.6 % 06/15/2022 11:54 HGA1C 5.6 % 09/17/2020 11:49 === Lipid Panel: TRIGLYCERIDE 110 mg/dL 05/21/2023 09:54 CHOLESTEROL 190 mg/dL 05/21/2023 09:54 HDL(New) 64 mg/dL 05/21/2023 09:54 CALCULATED LDL 104 mg/dL 05/21/2023 09:54 === CMP: SODIUM 138 mEq/L 05/21/2023 09:54 POTASSIUM 3.8 mEq/L 05/21/2023 09:54 CHLORIDE 104 mEq/L 05/21/2023 09:54 UREA NITROGEN 12.5 mg/dL 05/21/2023 09:54 CREATININE 1.02 mg/dL 05/21/2023 09:54 CALCIUM 9.1 mg/dL 05/21/2023 09:54 PROTEIN 7.7 g/dL 05/21/2023 09:54 ALBUMIN 3.9 g/dL 05/21/2023 09:54 ALKALINE PHOSPHATASE 103 U/L 05/21/2023 09:54 ALT/SGPT 33 U/L 05/21/2023 09:54 AST/SGOT 29 U/L 05/21/2023 09:54 TOTAL BILIRUBIN 0.6 mg/dL 05/21/2023 09:54 CARBON DIOXIDE 22 mEq/L 05/21/2023 09:54 GLUCOSE 93 mg/dL 05/21/2023 09:54 EGFR (CKD-EPI 2020) 85.7 05/21/2023 09:54 === CBC: WBC 7.8 10*3/uL 05/21/2023 09:54 RBC 4.58 10*6/uL 05/21/2023 09:54 HGB 15.2 g/dL 05/21/2023 09:54 HCT 42.6 % 05/21/2023 09:54 MCV 93.0 fL 05/21/2023 09:54 MCH 33.2 pg 05/21/2023 09:54 MCHC 35.7 g/dL 05/21/2023 09:54 RDW 13.2 % 05/21/2023 09:54 PLT 428 H 10*3/uL 05/21/2023 09:54 MPV 9.0 fL 05/21/2023 09:54 NEUTROPHILS, AUTO % 60 % 05/21/2023 09:54 LYMPHOCYTES, AUTO % 27 % 05/21/2023 09:54 MONOCYTES, AUTO % 10 % 05/21/2023 09:54 EOSINOPHILS, AUTO % 2 % 05/21/2023 09:54 BASOPHILS, AUTO % 1 % 05/21/2023 09:54 NEUTROPHILS, ABSOLUTE 4.67 10*3/uL 05/21/2023 09:54 LYMPHOCYTES, ABSOLUTE 2.09 10*3/uL 05/21/2023 09:54 MONOCYTES, ABSOLUTE 0.81 H 10*3/uL 05/21/2023 09:54 EOSINOPHILS, ABSOLUTE 0.18 10*3/uL 05/21/2023 09:54 BASOPHILS, ABSOLUTE 0.07 10*3/uL 05/21/2023 09:54 === PSA: PROST. SPECIFIC AG.(PB-STL) 0.416 ng/mL 05/21/2023 09:54 PROST. SPECIFIC AG.(PB-STL) 0.349 ng/mL 06/15/2022 11:54 PROST. SPECIFIC AG.(PB-STL) 0.434 ng/mL 09/17/2020 11:49 === Vitamin D: VITAMIN D, 25-HYDROXY 34.6 ng/mL 11/24/2023 10:20 VITAMIN D, 25-HYDROXY 19.8 L ng/mL 05/21/2023 09:54 VITAMIN D, 25-HYDROXY 67.5 ng/mL 06/15/2022 11:54 === UA: URINE COLOR Yellow 06/15/2022 11:54 APPEARANCE Clear 06/15/2022 11:54 U.PH 5.5 06/15/2022 11:54 U.BILIRUBIN Negative mg/dL 06/15/2022 11:54 U.NITRITE Negative mg/dL 06/15/2022 11:54 URINE RBC/HPF 1 /HPF 06/15/2022 11:54 URINE WBC/HPF 1 /HPF 06/15/2022 11:54 BACTERIA RARE /HPF 06/15/2022 11:54 SQUAMOUS EPITH. <1 /HPF 06/15/2022 11:54 MUCUS OCC /LPF 06/15/2022 11:54 === ASSESSMENT/PLAN: # Seizure disorder w/ aura: - Eval/management per [place] Neurology. Continue oxcarbazepine 300/600mg. - Need additional paperwork for employer d/t recent seizure. Vet will bring paperwork to clinic and complete ANA as well. # Tobacco Use: - Not ready to quit. declined resources for smoking cessation today # ETOH: - Remains free of alcohol consumption. Acknowledgment and encouragement of success. # Sensorineural hearing loss: - Has hearing aid bilaterally. # Vit D Def: - Sub-optimal control. Self-discontinued OTC cholecalciferol supplement, repeat labs. Will make further recommendations based on repeat results # ED: - Symptoms stable on sildenafil 50mg PRN. Medication s/e and safety reviewed. # Mood disorder: - Denies need to speak with MH clinic. Denies SI, low risk for self-harm HM: Colorectal cancer screening: -Last completed: No prior h/o c-scope. FOBT negative 06/2022 -Due: FOBT pending completion. Historically completed one week ago Prostate cancer screening: Last completed: 0.416 ng/mL 05/21/2023 09:54 Lung cancer screening: Eligibility: LDLCT completed in 06/2023, annual f/u recommended AAA Screening: Eligibility: defer due to age ADMINISTERED Immunization Series Date Facility Reaction Info COVID-19 (PFIZER), MRNA, LNP-S, * 2 [facility] COVID-19 (PFIZER), MRNA, LNP-S, * 1 [facility]* REFUSED ======= Immunization Date Facility Info COVID-19 (MODERNA), MRNA, LNP-S,* 11/[facility]/20[facility] <I> COVID-19 (PFIZER), MRNA, LNP-S, * 11/23/2022 [facility] <I> COVID-19 (PFIZER), MRNA, LNP-S, * 05/19/2024 No Site <I> COVID-19 (PFIZER), MRNA, LNP-S, * 02/01/2024 No Site <I> INFLUENZA, UNSPECIFIED FORMULATI* 05/19/2024 No Site <I> INFLUENZA, UNSPECIFIED FORMULATI* 05/21/2023 [facility] <I> INFLUENZA, UNSPECIFIED FORMULATI* 05/07/2022 [facility] <I> INFLUENZA, UNSPECIFIED FORMULATI* 05/07/2022 [facility] <I> PNEUMOCOCCAL CONJUGATE, UNSPECIF* 05/19/2024 No Site <I> PNEUMOCOCCAL CONJUGATE, UNSPECIF* 02/01/2024 No Site <I> PNEUMOCOCCAL CONJUGATE, UNSPECIF* 11/24/2023 [facility] <I> PNEUMOCOCCAL CONJUGATE, UNSPECIF* 05/21/2023 [facility] <I> PNEUMOCOCCAL CONJUGATE, UNSPECIF* 11/23/2022 [facility] <I> PNEUMOCOCCAL CONJUGATE, UNSPECIF* 05/07/2022 [facility] <I> TDAP 05/19/2024 No Site <I> TDAP 02/01/2024 No Site <I> TDAP 11/24/2023 [facility] <I> TDAP 05/21/2023 [facility] <I> ZOSTER RECOMBINANT 05/19/2024 No Site <I> ZOSTER RECOMBINANT 02/01/2024 No Site <I> ZOSTER RECOMBINANT 11/24/2023 [facility] <I> ZOSTER RECOMBINANT 05/21/2023 [facility] <I> ZOSTER RECOMBINANT 11/23/2022 [facility] <I> ZOSTER RECOMBINANT 05/07/2022 [facility] <I> clinical reminders completed; educated on continuing to avoid salt, conc sweets; benefits of continued exercise, reg PCP visits, routine eyes exams Plan of care has been discussed with including expected therapeutic benefits and potential side effects of prescribed medications and treatments. Current medication list has been reconciled with and updated accordingly. was instructed to keep all scheduled appointments and to contact clinical manager for any additional problems. verbalizes understanding and is in agreement with the plan of care. RTC: annually or sooner PRN PREVENTION & SCREENING: ALCOHOL: Clinical Reminder not due now or within a month BLOOD PRESSURE: Clinical Reminder not due now or within a month HEMOGLOBIN A1C: Clinical Reminder not due now or within a month Avg Risk Colorectal Cancer Screen - L,N,P,PH: AVERAGE RISK colorectal cancer screening is due based on information available to this clinical reminder Defer reminder for 3 months Reason: waiting on results of FOBT /es/ NADIR RAJPUT, MSN, AGNP-C NURSE PRACTITIONER Signed: 05/22/2024 14:36 NADIR RAJPUT [facility]
--- OUTSIDE RECORDS SUMMARY | 2024-07-10 12:46 | XMS_ITS | Encounter Summary ---
Author Name [facility] [facility] Address [address] [place] [address] Care Team Providers Care Academic Affairs Manager Name Role Phone NADIR RAJPUT Primary Care [...] Walker's Name Patient's Relationship to Policy Walker [place] ([id number]) RX PRESCRIPT ION GENER AL MOTOR S Jun 18, 2015 [id number] [phone] OTF JUSTIN PATIENT MEDICARE (WNR) MEDICARE (M) PART A Jan 17, 2021 PART A [id number] AMPARO JUSTIN SR PATIENT Selected Encounter This section includes the information on record at NH for the Encounter. Date/Time Encounter Type Encounter Description Reason Provider Source Feb 02, 2024 02:00 PM OFFICE O/P EST LOW 20 MIN PRIMARY CARE/MEDICINE ICD-10-CM R56.9 Unspecified convulsions SHYANNE RAJPUT IHFabian Encounter Template Text not used by [place] Assessments - Encounter Diagnoses This section includes the primary and secondary diagnoses documented for the Encounter. Date/Time Primary/Secondary Diagnosis Diagnosis Name Provider Source Feb 02, 2024 03:44 PM PRIMARY Unspecified convulsions NADIR RAJPUT [facility] Feb 02, 2024 03:44 PM SECONDARY Other problems related to lifestyle NADIR RAJPUT [facility] Feb 02, 2024 03:44 PM SECONDARY Tobacco use NADIR RAJPUT [facility] Plan of Treatment: Future Appointments (+ 6 months) and Future Tests (+/- 45 days) The Plan of Treatment section includes future care activities for the [facility] This section includes future appointments and future orders which are active, pending or scheduled. Future Appointments This section includes appointments that were scheduled to occur 6 months from the date of the Encounter, up to a maximum of 20 appointments. The data comes from all [facility]. Appointment Date/Time Appointment Type Appointme nt Facility Name Mar 06, 2024 10:00 AM AMBULATORY - MEDICINE [facility] May 22, 2024 01:30 PM AMBULATORY - MEDICINE [facility] Jul 11, 2024 01:00 PM AMBULATORY - SURGERY [facility] Jul 11, 2024 02:00 PM AMBULATORY - NONE [facility] Active, Pending, and Scheduled Orders This section includes a listing of several types of active, pending, and scheduled orders, including clinic medications orders, diagnostic test orders, procedure orders and consult orders; where the start date of the order is 45 days before the date of the Encounter or 45 days after the date of theEncounter. The data comes from all [facility]. Test Date/Time Test Type Test Details Facility Name Feb 02, 2024 12:00 AM Laboratory - Chemistry Order OCCULT BLOOD FIT X1 SCREEN STOOL [facility]ES [facility] Mar 06, 2024 12:00 AM Laboratory - Chemistry Order COMPREHENSIVE METABOLIC PANEL GREEN LI/HEP BLD/PLAS PLASMA SP [facility] Mar 06, 2024 12:00 AM Laboratory - Chemistry Order CBC BLOOD [facility] Vital Signs: All taken on the encounter date This section contains inpatient and outpatient Vital Signs collected on the date of the Encounter. Date/Time Temperature Pulse Blood Pressure Respiratory Rate SP02 Pain Height Weight Body Mass Index Source Feb 02, 2024 02:08 PM 98.2 99 119/81 [address] [facility] Social History: Smoking Status (Most current) and Tobacco Use (All prior to encounter date) This section includes the most current, and the historical, smoking and tobacco- related health factors from the [place] facility where the Encounter took place. Current Smoking Status This section includes the most current smoking, or tobacco-related health factor, from the [place] facility where the Encounter took place. Date/Time Current Smoking Status Comment Facil ity Nov 24, 2023 09:30 AM VA-TOBACCO USER EVERY DAY [facility] Tobacco Use History This section includes a history of the smoking, or tobacco-related health factors, that were collected on or before the date of the Encounter. The data comes from the [place] facility where the Encounter took place. Date/Time Smoking Status/Tobacco Use Comment F acility Nov 24, 2023 09:30 AM VA-TOBACCO USE ADVICE [facility] Nov 24, 2023 09:30 AM VA-TOBACCO USE TALENT RECRUITER NO [facility] Nov 24, 2023 09:30 AM VA-TOBACCO USE MED NO [facility] Nov 24, 2023 09:30 AM VA-TOBACCO USE WI 30 MIN OF WAKE UP [facility] Nov 24, 2023 09:30 AM VA-TOBACCO USER EVERY DAY [facility] Nov 23, 2022 11:00 AM VA-TOBACCO USE [address] [facility] Nov 23, 2022 11:00 AM VA-TOBACCO USE ADVICE [facility] Nov 23, 2022 11:00 AM VA-TOBACCO USE TALENT RECRUITER NO [facility] Nov 23, 2022 11:00 AM VA-TOBACCO USE MED NO [facility] Nov 23, 2022 11:00 AM VA-TOBACCO USE WI [address] [facility] Nov 23, 2022 11:00 AM VA-TOBACCO USER EVERY DAY [facility] Dec 15, 2021 03:00 PM VA-TOBACCO USE [address] [facility] Dec 15, 2021 03:00 PM VA-TOBACCO USE ADVICE [facility] Dec 15, 2021 03:00 PM VA-TOBACCO USE TALENT RECRUITER NO [facility] Dec 15, 2021 03:00 PM VA-TOBACCO USE MED NO [facility] Dec 15, 2021 03:00 PM VA-TOBACCO USE WI 30 MIN OF WAKE UP [facility] Dec 15, 2021 03:00 PM VA-TOBACCO USER EVERY DAY [facility] Sep 17, 2020 11:00 AM VA-TOBACCO USE 30 YEARS OR MORE [facility] Sep 17, 2020 11:00 AM VA-TOBACCO USE ADVICE [facility] Sep 17, 2020 11:00 AM VA-TOBACCO USE TALENT RECRUITER NO [facility] Sep 17, 2020 11:00 AM VA-TOBACCO USE MED NO [facility] Sep 17, 2020 11:00 AM VA-TOBACCO USE WI 30 MIN OF WAKE UP [facility] Sep 17, 2020 11:00 AM VA-TOBACCO USER EVERY DAY [facility] August 21, 2019 02:46 PM VA-TOBACCO USE 30 YEARS OR MORE [facility] August 21, 2019 02:46 PM VA-TOBACCO USE ADVICE [facility] August 21, 2019 02:46 PM VA-TOBACCO USE TALENT RECRUITER NO [facility] August 21, 2019 02:46 PM VA-TOBACCO USE MED NO [facility] August 21, 2019 02:46 PM VA-TOBACCO USE WI 30 MIN OF WAKE UP [facility] August 21, 2019 02:46 PM VA-TOBACCO USER EVERY DAY [facility] September 15, 2018 02:11 PM VA-TOBACCO USE > 1 5 LESS THAN 30 YEARS [facility] September 15, 2018 02:11 PM VA-TOBACCO USE 30 YEARS OR MORE [facility] September 15, 2018 02:11 PM VA-TOBACCO USE ADVICE [facility] September 15, 2018 02:11 PM VA-TOBACCO USE TALENT RECRUITER NO [facility] September 15, 2018 02:11 PM VA-TOBACCO USE TALENT RECRUITER YES [facility] September 15, 2018 02:11 PM VA-TOBACCO USE MED NO [facility] September 15, 2018 02:11 PM VA-TOBACCO USE WI 30 MIN OF WAKE UP [facility] September 15, 2018 02:11 PM VA-TOBACCO USER EVERY DAY [facility] Aug 03, 2012 01:56 PM CURRENT TOBACCO USER [facility] Aug 03, 2012 01:56 PM TOBACCO MEDS OFFERED BUT DECLINE D [facility] Encounter Notes: All associated encounter notes This section contains the clinical notes associated to the Encounter. Date/Time Encounter Note(s) Provider Source Apr 18, 2024 12:17 PM PHYSICIAN MEDICAL CLEARANCE NOTE: LOCAL TITLE: RETURN TO WORK STANDARD TITLE: PHYSICIAN MEDICAL CLEARANCE NOTE DATE OF NOTE: APR 18, 2024@12:17 ENTRY DATE: APR 18, 2024@12:17:31 AUTHOR: NADIR RAJPUT EXP COSIGNER: URGENCY: STATUS: COMPLETED APR 18, 2024 To whom it may concern: AMPARO JUSTIN is a patient at the [facility]. AMPARO JUSTIN may not drive for 6 months following last known seizure on Jan 02, 2024. Mr. Justin can return to work if alternative transportation is available. Driving restriction is from Jan 03, 2024-Jun if he does not have a recurrence in seizures prior to that date. Sincerely, Nadir Rajput /miles/ NADIR RAJPUT, JOSE GUADALUPE, AGNP-C NURSE PRACTITIONER Signed: 04/18/2024 12:24 Receipt Acknowledged By: 04/18/2024 14:12 /miles/ DESTIN LOWERY RN MSN REGISTERED NURSE NADIR RAJPUT [facility] Feb 02, 2024 02:17 PM PRIMARY CARE NOTE: LOCAL TITLE: PRIMARY CARE PROVIDER ESTABLISHED VISIT ST STANDARD TITLE: PRIMARY CARE NOTE DATE OF NOTE: FEB 02, 2024@14:17 ENTRY DATE: FEB 02, 2024@14:17:29 AUTHOR: NADIR RAJPUT EXP COSIGNER: URGENCY: STATUS: COMPLETED ESTABLISHED PATIENT [id number] REASON FOR VISIT/CHIEF COMPLAINT: follow up HPI: PMH, see problem list 58 y/o male who presents to the medical clinic for his scheduled follow up visit. The purpose of the visit today is to follow up on the veterans chronic medical conditions. Denies new concerns or complaints. He is accompanied to clinic with his spouse. His goal is to request his PCP to complete his disability paperwork for his employer. Last PCP visit: 11/24/2023 Epilepsy w/ aura (disorientation/odd smell). continued to experience seizures on Keppra 1500 mg BID. He was changed to oxcarbazepine by [place] neurology. endorses he had a seizure on 01/02/2024 and 01/03/2024 which was ~ 5.5 months since his last seizure. He was instructed to increase the dose of his oxcarbazepine from 300 mg BID to 300mg am and 600mg pm following his last seizure. He endorses compliance with his medications. Denies recurrence of seizure activity since modifying his medication dose. He is planning to establish with a new [place] neurologist because he requested a change in provider. WHAT IS YOUR GOAL FOR TODAY? F/U chronic medical conditions SOURCE(S) OF HISTORY: -Patient PAST MEDICAL HISTORY: 1) Cannabis abuse (SNOMED CT 29164448) comment: UDS + cannabis 07/27/2012 2) Erectile dysfunction (SNOMED CT 987270111) 3) Tobacco User (SCT 608112699) 4) Hearing Loss (SCT 10044923) 5) Drinks alcohol 6) Vitamin D Deficiency (SCT 9705940) 7) Mood disorder 8) Pain of right shoulder joint 9) Tinnitus 10) Seizure (SCT 14216973) 11) Malnutrition (calorie) FAMILY HISTORY: DM: Daughter, DM I CAD/IHD: [...] 750MG TAB TAKE TWO TABLETS BY MOUTH ACTIVE TWICE A DAY FOR SEIZURES SWALLOW WHOLE, DO NOT CRUSH OR CHEW. 2) OXCARBAZEPINE 300MG TAB TAKE ONE TABLET BY MOUTH ACTIVE EVERY MORNING AND TAKE TWO TABLETS EVERY EVENING FOR SEIZURES Active Non-VA Medications Status 1) Non-VA CHOLECALCIFEROL (LOW DOSE VIT D) - (OTC) TAB ACTIVE BY MOUTH 3 Total Medications MEDICATION RECONCILIATION: completed REVIEW OF SYSTEMS: See HPI for further details of positive complaints. All 10 systems reviewed and otherwise negative. PHYSICAL EXAMINATION: VITALS (most recent, as listed in the electronic record): Temperature: 98.2 F [36.8 C] (02/02/2024 14:08) BP: 119/81 (02/02/2024 14:08) Pulse: 99 (02/02/2024 14:08) Resp: 20 (02/02/2024 14:08) PulsOx: 95% (02/02/2024 14:08) Pain: 0 (02/02/2024 14:08) Weight: Measurement DT WEIGHT LB(KG)[BMI] 02/02/2024 14:08 159(72.12)[26] 11/24/2023 09:46 148.2(67.22)[24] 05/21/2023 09:38 145(65.77)[20] PHYSICAL EXAMINATION: General appearance: well-groomed, well-nourished, in [...] SPECIFIC AG.(PB-STL) 0.434 ng/mL 09/17/2020 11:49 === TSH: TSH 1.872 uIU/mL 05/21/2023 09:54 === Vitamin D: VITAMIN D, 25-HYDROXY 34.6 [...] 06/15/2022 11:54 MUCUS OCC /LPF 06/15/2022 11:54 ASSESSMENT/PLAN: # Seizure disorder w/ aura: - Eval/management per [place] Neurology - Continue oxcarbazepine as directed - Will collaborate with a fellow MD to complete his paperwork # Tobacco Use: - Remains free of tobacco use. Acknowledgment and encouragement of success. # ETOH: - Remains free of alcohol consumption. Acknowledgment and encouragement of success. HM: Colorectal cancer screening: -Last completed: No prior h/o c-scope. FOBT negative 06/2022 -Due: FOBT pending completion Prostate cancer screening: Last completed: 0.416 ng/mL [...] KAYA* <I> COVID-19 (PFIZER), MRNA, LNP-S, * 02/01/2024 No Site <I> INFLUENZA, UNSPECIFIED FORMULATI* 05/21/2023 [facility] <I> INFLUENZA, UNSPECIFIED FORMULATI* 05/07/2022 [facility] <I> INFLUENZA, UNSPECIFIED FORMULATI* 05/07/2022 [facility] <I> PNEUMOCOCCAL CONJUGATE, UNSPECIF* 02/01/2024 No Site <I> PNEUMOCOCCAL CONJUGATE, UNSPECIF* 11/24/2023 [facility] <I> PNEUMOCOCCAL CONJUGATE, UNSPECIF* 05/21/2023 [facility]* <I> PNEUMOCOCCAL CONJUGATE, UNSPECIF* 11/23/2022 [facility] <I> PNEUMOCOCCAL CONJUGATE, UNSPECIF* 05/07/2022 [facility] <I> TDAP 02/01/2024 No Site <I> TDAP 11/24/2023 [facility]* <I> TDAP 05/21/2023 [facility]* <I> ZOSTER RECOMBINANT 02/01/2024 No Site <I> [...] has been reconciled with and updated accordingly. [place] was instructed to keep all scheduled appointments and to contact assistant fitness manager for any additional problems. [place] verbalizes understanding and is in agreement with the plan of care. RTC: as planned in 05/2024 PREVENTION & SCREENING: ALCOHOL: Clinical Reminder not due now or within a month BLOOD PRESSURE: Clinical Reminder not due now or within a month HEMOGLOBIN A1C: Clinical Reminder not due now or within a month Avg Risk Colorectal Cancer Screen - L,N,P,PH: AVERAGE RISK colorectal cancer screening is due based on information available to this clinical reminder FOBT/FIT (Fecal Immunochemical Testing) has been ordered. See order tab for details. /miles/ NADIR RAJPUT, JOSE GUADALUPE, AGNP-C NURSE PRACTITIONER Signed: 02/02/2024 15:44 Receipt Acknowledged By: 02/09/2024 15:47 /miles/ KRISTIN PILLAI MD STAFF PHYSICIAN NADIR RAJPUT [facility] Feb 02, 2024 02:10 PM NURSING NOTE: LOCAL TITLE: V15 PACT FACE TO FACE NOTE STL STANDARD TITLE: NURSING NOTE DATE OF NOTE: FEB 02, 2024@14:10 ENTRY DATE: FEB 02, 2024@14:10:11 AUTHOR: JACQUES LOPEZ COSIGNER: URGENCY: STATUS: COMPLETED Provider Visit: Patient Identifiers : Full Name Date of Reason for visit: Established Follow-Up Mode of Arrival: Ambulatory Allergy Review: Patient has answered NKA Allergy list reviewed and remains current. Recent Vital Signs: Temperature: 98.2 F [36.8 C] (02/02/2024 14:08) Pulse: 99 (02/02/2024 14:08) Respiration: 20 (02/02/2024 14:08) B/P: 119/81 (02/02/2024 14:08) Pain: 0 (02/02/2024 14:08) Wt: 159 lb [72.12 kg] (02/02/2024 14:08) Ht: 66 in [167.6 cm] (11/24/2023 09:46) BMI: 25.7 POX: 95% (02/02/2024 14:08) PERSONAL HEALTH INVENTORY Notes: No data available for PHI note titles PERSONAL HEALTH INVENTORY - MAP: 11/24/2023 Personal Health Plan [place], [place], Purpose (MAP) My family 09/17/2020 Personal Health Plan [place], [place], Purpose (MAP) Waking up everyday brings me kateryna and happiness What matters most to you in your life right now? -- 's Response: marriage Would you like to discuss any personal problem, family problem, alcohol use, drug use, or a mental or emotional illness? No My [facility] ([facility]), please select appointment type: Face to face: No- Are you interested in getting this done? No Contact provided Primary Care phone number and encouraged to call if any questions or concerns. Review that after hours nurse line [phone] and emergency room are available 09/11 for patient use. Contact verbalized good understanding. No notification required for this note. Homelessness/Food Insecurity Screen - DI,L,N,P,PH,PS,S,U: In the past 2 months, have you been living in stable housing that you own, rent, or stay in as part of a household? Yes - Living in stable housing. Are you worried or concerned that in the next 2 months you may NOT have stable housing that you own, rent, or stay in as part of a household? No - Not worried about housing near future The [place] reports the following: Within the past 12 months, you worried whether your food would run out before you got money to buy more. Never true Within the past 12 months, the food you bought just didn't last and you didn't have money to get more. Never true /es/ JACQUES LOPEZ Licensed Practical Nurse Signed: 02/02/2024 14:[address] [facility]
--- OUTSIDE RECORDS SUMMARY | 2024-07-10 12:47 | XMS_ITS | Referral Summary ---
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 Would recommend evaluation by a neurologist and a referral was given.. Pending their assessment would like to get a game plan together for his shoulder Traumatic incomplete tear of right rotator cuff 09/26/2018 Assessment & Plan (09/26/2018 1:31 PM CDT): By MRI the patient has a partial-thickness tear of his rotator cuff. Would not explain the profound atrophy has in the infraspinatus fossa from injury from July. I am concerned he has underlying neurologic condition affecting the upper arm as well. He still may benefit from rotator cuff repair but would like to get Neurology is view point Traumatic complete tear of right rotator cuff Assessment & Plan (08/11/2018 3:55 PM CDT): Patient has a partial-thickness tear of the right rotator cuff by MRI. These generally respond well to conservative measures. After reviewing the treatment options patient elected undergo a cortisone injection which was given today. He tolerated the procedure well. Will enroll him in physical therapy to work on strengthening of the arm. He is return the office in 4-6 weeks Assessment & Plan (08/04/2018 12:13 PM CDT): Patient most likely has a full-thickness tear of his right rotator cuff. He has no active mobility of the cuff. Would recommend an MRI to evaluate the integrity of the cuff initiate appropriate treatment once results are available Lung mass 11/07/2009 Social History Tobacco Use Types Packs/Day Years Used Date Smoking Tobacco: Every Day Cigarettes 1 39.2 Started: 1985 Smokeless Tobacco: Never Tobacco Cessation:Ready to Q uit: No; Counseling Given: Yes Alcohol Use Standard Drinks/Week Comments Yes 14 (1 standard drink = 0.6 oz pu re alcohol) 2 per day Sex and Gender Information Value Date Recorded Sex Assigned at Not on file Legal Sex Male 8:56 AM LABOR RELATIONS TEACHER Gender Identity Not on file Sexual Orientation Not on file Last Filed Vital Signs Vital Sign Reading Time Taken Comments Blood Pressure 116/74 02/25/2019 8:55 AM LABOR RELATIONS TEACHER Pulse 83 02/25/2019 8:55 AM LABOR RELATIONS TEACHER Temperature 36.6 C (97.9 F) 02/25/2019 8:55 AM LABOR RELATIONS TEACHER Respiratory Rate 19 02/25/2019 8:55 AM LABOR RELATIONS TEACHER Oxygen Saturation 98% 02/25/2019 8:55 AM LABOR RELATIONS TEACHER Inhaled Oxygen Concentration - - Weight 68 kg (150 lb) 02/17/2022 11:17 AM CDT Height 185.4 cm (6' 1 ) 02/17/2022 11:17 AM CDT Body Mass Index 19.79 02/17/2022 11:17 AM CDT Plan of Treatment Not on file Insurance [facility] [place] BLUE ACCESS [place] BLUE ACCESS [place]OS Advance Directives For more information, please contact: [phone] * Full Code (Latest Code Status on File) Date Activated Date Inactivated Comments 02/22/2019 6:34 PM 02/23/2019 4:22 PM Care Teams District Fire Chief Relationship Specialty Start Date End Date [facility] [place], Jus Carrington [address] [place] [id number] PCP - General Genetics 09/28/18
--- OUTSIDE RECORDS SUMMARY | 2024-07-10 12:47 | XMS_ITS | Encounter Summary ---
Author Name [facility] [place] [facility] [place] Address [address] [place] [address] Care Team Providers Care Bag Machine Tender Name Role Phone NADIR RAJPUT Primary Care [...] Walker's Name Patient's Relationship to Policy Walker CARECRANSTON ([id number]) RX PRESCRIPT ION GENER AL MOTOR S Jun 18, 2015 [id number] [phone] OTF JUSTIN PATIENT MEDICARE (WNR) MEDICARE (M) PART A Jan 17, 2021 PART A [id number] [phone] AMPARO JUSTIN SR PATIENT Selected Encounter This section includes the information on record at [place] for the Encounter. Date/Time Encounter Type Encounter Description Reason Provider Source Mar 06, 2024 10:00 AM OFFICE O/P EST HI 40 MIN NEUROLOGY ICD-10-CM G40.219 Local-rel symptc epi w cmplx part seiz, ntrct, w/o stat epi JOENADIA Giraldo IHE Encounter Template Text not used by [place] Assessments - Encounter Diagnoses This section includes the primary and secondary diagnoses documented for the Encounter. Date/Time Primary/Secondary Diagnosis Diagnosis Name Provider Source Mar 06, 2024 10:42 AM PRIMARY Local-rel symptc epi w cmplx part seiz, ntrct, w/o stat epi JOE,NADIA [facility] Mar 06, 2024 10:42 AM SECONDARY Tobacco use JOE,[facility] Mar 06, 2024 10:42 AM SECONDARY Unspecified convulsions JOE,[facility] Mar 06, 2024 10:42 AM SECONDARY Vitamin D deficiency, unspecified JOE,[facility] Plan of Treatment: Future Appointments (+ 6 months) and Future Tests (+/- 45 days) The Plan of Treatment section includes future care activities for the patient from all [facility]. This section includes future appointments and future orders which are active, pending or scheduled. Future Appointments This section includes appointments that were scheduled to occur 6 months from the date of the Encounter, up to a maximum of 20 appointments. The data comes from all [facility]. Appointment Date/Time Appointment Type Appointme nt Facility Name May 22, 2024 01:30 PM AMBULATORY - MEDICINE [facility] Jul 11, 2024 01:00 PM AMBULATORY - SURGERY [facility] Jul 11, 2024 02:00 PM AMBULATORY - NONE [facility] August 28, 2024 12:00 PM AMBULATORY - NONE [facility] Active, Pending, and Scheduled Orders This section includes a listing of several types of active, pending, and scheduled orders, including clinic medications orders, diagnostic test orders, procedure orders and consult orders; where the start date of the order is 45 days before the date of the Encounter or 45 days after the date of theEncounter. The data comes from all [facility]. Test Date/Time Test Type Test Details Facility Name Feb 02, 2024 12:00 AM Laboratory - Chemistry Order OCCULT BLOOD FIT X1 SCREEN STOOL FECES SP [facility] Mar 06, 2024 12:00 AM Laboratory - Chemistry Order COMPREHENSIVE METABOLIC PANEL GREEN LI/HEP BLD/PLAS PLASMA SP [facility] Mar 06, 2024 12:00 AM Laboratory - Chemistry Order CBC BLOOD SP [facility] Encounter Notes: All associated encounter notes This section contains the clinical notes associated to the Encounter. Date/Time Encounter Note(s) Provider Source Mar 06, 2024 09:56 AM NEUROLOGY OUTPATIE NT NOTE: LOCAL TITLE: NEUROLOGY OUTPATIENT FOLLOW UP STL STANDARD TITLE: NEUROLOGY OUTPATIENT NOTE DATE OF NOTE: MAR 06, 2024@09:56 ENTRY DATE: MAR 06, 2024@09:56:38 AUTHOR: NADIA DIAZ EXP COSIGNER: URGENCY: STATUS: COMPLETED NEUROLOGY OUTPATIENT C FOLLOW-UP Date of Visit: 03/06/24 10:00 Visit completed via Telehealth. Consent obtained, patient location and phone number confirmed. Last clinic visit: HISTORY: A. Source(s) of history: Patient B. Reliability of source(s): Reliable C. CHIEF COMPLAINT: Follow Up for Epilepsy D. HISTORY OF PRESENT ILLNESS: AMPARO JUSTIN is a 58 year old MALE presenting for follow-up of epilepsy. Initial seizure occurred in January 2022, when patient was found on the floor in a closet, followed by a second seizure witnessed by his . Patient was initially started on Keppra 500mg BID. During 2022, experienced 3-4 episodes. Patient reports aura with feeling of disorientation 15-20 minutes prior to seizures. Per 's observation, seizures manifest with patient becoming silent, staring into space, unresponsive, with body stiffening, head hyperextension, and rhythmic shaking. Arms either flex at elbows or extend, with legs becoming stiff and extended. Episodes last 30-60 seconds, followed by post- ictal confusion. Patient may experience cluster seizures within 20-25 minutes. E. INTERVAL HISTORY: Most recent seizures occurred on January 012023, with two episodes approximately 24 hours apart. Each episode lasted approximately 2 minutes, preceded by feeling 'woozy and disoriented.' Patient has experienced urinary incontinence once during seizures but denies tongue biting. Current medication is oxcarbazepine 300mg morning and 600mg at night, with initial side effects of drowsiness that have since improved. Pattern suggests seizures occur approximately every 5-6 months. No family history of seizures. Denies history of traumatic brain injury, meningitis, encephalitis, or other brain infections. No developmental issues or need for special education in childhood. Patient has been unable to work at [employer] since January 2022 due to driving restrictions. ALLERGIES: Patient has answered NKA MEDICATIONS: Active Outpatient Medications (including Supplies): Active [...] TAB ACTIVE BY MOUTH 3 Total Medications G. PAST MEDICAL & SURGICAL HISTORY 1) Cannabis abuse (SNOMED CT 85754621) 2) Erectile dysfunction (SNOMED CT 380726271) 3) Tobacco User ([facility] 561309083) 4) Hearing Loss (SCT 48628058) 5) Drinks alcohol 6) Vitamin D Deficiency (SCT 9093511) 7) Mood disorder 8) Pain of right shoulder joint 9) Tinnitus 10) Seizure (SCT 75289465) 11) Malnutrition (calorie) J. REVIEW OF SYSTEMS: Negative except as mentioned in HPI . PHYSICAL EXAMINATION (limited examination as this is a televideo encounter) VITALS: Temperature: 98.2 F [36.8 C] (02/02/2024 14:08) Blood Pressure: 119/81 (02/02/2024 14:08) Pulse: 99 (02/02/2024 14:08) Respirations: 20 (02/02/2024 14:08) Height: 66 in [167.6 cm] (11/24/2023 09:46) Weight: 159 lb [72.12 kg] (02/02/2024 14:08) CONSTITUTIONAL: Gen: NAD, appropriate affect, normal built Resp: Normal effort, no respiratory distress NEUROLOGIC: Mental Status: Alert and oriented x 3, answers questions appropriately Speech clear, fluent and coherent, follows complex commands Cranial Nerves: EOMI, no ptosis, nystagmus or diplopia Facial sensation intact in all three divisions bilaterally Face symmetric, hearing intact bilaterally Tongue midline, shoulder shrug intact bilaterally Motor: Power: Moves all extremities antigravity without any obvious weakness. Able to grasp objects and move them around. Able to bear weight on legs and walk briskly. 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 Seizure pattern shows consistent 5-6 month intervals between episodes. Current regimen of oxcarbazepine has been better tolerated than previous Keppra therapy. MRI shows only minor small vessel disease changes without epileptogenic lesions. PLAN: 1. Continue current antiepileptic regimen: - Oxcarbazepine 300mg morning and 600mg evening 2. Laboratory monitoring: - Ordered CBC and CMP to monitor medication effects - Special attention to sodium levels due to risk of hyponatremia with oxcarbazepine 3. Driving/Work Status: - Cannot drive for 6 months following last seizure (December 2023) per [place] state law - Can return to work if alternative transportation is available 4. Follow up in June 2023 to reassess seizure control and driving status 5. Patient instructed to seek immediate medical attention if experiencing: - Increased seizure frequency - New neurological symptoms - Medication side effects MEDICATION RECONCILIATION I have reviewed current medications w/ at this visit. denies questions, concerns, or problems with medications unless addressed in notes above. Time spent with patient/proxy: I personally spent 40 minutes on today's date preparing to see the patient (e.g. reviewing chart, review of tests), obtaining and/or reviewing the separately obtained history, performing a medically necessary and appropriate examination and evaluation, counseling and educating the patient/family/caregiver, ordering medications, tests, or procedures, documenting in the patient record, and communicating results to the patient/family/caregiver. Disclaimer for voice recognition software: This note was generated by voice recognition software, which may produce errors in grammar, syntax and interpretation. I have attempted to reduce these errors as much as possible. Please use your clinical judgment when reading. Thank you. /miles/ NADIA DIAZ MD NEUROLOGY STAFF PHYSICIAN Signed: 03/06/2024 10:42 NADIA DIAZ [facility]
--- OUTSIDE RECORDS SUMMARY | 2024-07-10 12:47 | XMS_ITS ---
Author Name [facility] [place] [facility] [place] [facility] [place] Address [address] [place] [address] Care Team Providers Care Supervisor Cell Operation Name Role Phone NADIR RAJPUT Primary Care [...] Walker's Name Patient's Relationship to Policy Walker [place]ER[place] ([id number]) RX PRESCRIPT ION GENER AL MOTOR S Jun 18, 2015 [id number] [phone] OTF JUSTIN PATIENT MEDICARE (WNR) MEDICARE (M) PART A Jan 17, 2021 PART A [id number] AMPARO JUSTIN SR PATIENT Selected Encounter This section includes the information on record at [place] for the Encounter. Date/Time Encounter Type Encounter Description Reason Provider Source Jul 12, 2023 08:30 AM OFFICE O/P EST MOD 30 MIN OPTOMETRY ICD-10-CM H52.7 Unspecified disorder of refraction STEVE HOANG Chintan IHE Encounter Template Text not used by [facility] Assessments - Encounter Diagnoses This section includes the primary and secondary diagnoses documented for the Encounter. Date/Time Primary/Secondary Diagnosis Diagnosis Name Provider Source Jul 23, 2023 02:45 PM PRIMARY Unspecified disorder of refraction NATALYALEXYFabian Woodson [facility] Jul 23, 2023 02:45 PM SECONDARY Age-related nuclear cataract, bilateral STEVE HOANG [facility] Jul 23, 2023 02:45 PM SECONDARY Anisometropia STEVE HOANG [facility] Plan of Treatment: Future Appointments (+ 6 months) and Future Tests (+/- 45 days) The Plan of Treatment section includes future care activities for the patient [facility] [place] [facility] This section includes future appointments and future orders which are active, pending or scheduled. Future Appointments This section includes appointments that were scheduled to occur 6 months from the date of the Encounter, up to a maximum of 20 appointments. The data comes from all [facility]. Appointment Date/Time Appointment Type Appointme nt Facility Name Jul 27, 2023 10:00 AM AMBULATORY - MEDICINE [facility] August 27, 2023 01:00 PM AMBULATORY - NONE [facility] Oct 12, 2023 01:00 PM AMBULATORY - MEDICINE [facility] Nov 24, 2023 09:30 AM AMBULATORY - MEDICINE [facility] Active, Pending, and Scheduled Orders This section includes a listing of several types of active, pending, and scheduled orders, including clinic medications orders, diagnostic test orders, procedure orders and consult orders; where the start date of the order is 45 days before the date of the Encounter or 45 days after the date of theEncounter. The data comes from all [facility]. Test Date/Time Test Type Test Details Facility Name Jun 07, 2023 12:00 AM Laboratory - Chemistry Order CBC BLOOD SP [facility] Radiology Reports: +/- 30 days of the encounter Radiology Reports For cases when an order for radiology services may have been completed prior to the date of the Encounter, the report list includes the Radiology Reports that were completed up to 30 days before dateof the Encounter. For cases when an order for radiology services may have been completed after the date of the Encounter, the report list also includes the Radiology Reports that were completed up to30 days after date of the Encounter. The data comes from all [place] treatment facilities. Date/Time Radiology Report Provider Source Jul 05, 2023 08:35 AM MRI BRAIN W/O CONT : AMPARO JUSTIN [id number] -[id number] M Exm Date: JUL 05, 2023@08:35 Req Phys: NADIR RAJPUT Loc: [facility] 7 PCP (Req'g Loc) Img Loc: [facility] Service: Unknown (Case [id number] COMPLETE) MRI BRAIN W/O&W CONT (MRI Detailed) CPT:98445 Contrast Media : unspecified contrast media Reason for Study: Epilepsy (Case 203 COMPLETE) MRI 3D RENDERING W/O INDEPENDENT (MRI Detailed) CPT:35500 Clinical History: Private neurologist requesting imaging due to recurrent seizures Responsible Attending: Nadir Rajput Attending Contact Number: [facility] Resident Contact Number: Does your patient have an implanted device or hardware? (Any prosthesis, implant, shrapnel or bullet fragments) No Does your patient have any of the following (Please check all that apply) [ ] Pacemaker [ ] AICD [ ] Neuro-stimulator [ ] Bone Growth Stimulator [ ] Pain Pump [ ] Insulin Pump [ ] Cochlear Implant [ ] Ocular Implant [ ] Aneurysm Clip [ ] Vascular Clip Any other type of implant, please explain Does your patient have a Coronary Stent: No Does your patient have a an artificial Heart Valve: No Were any of the following intravascular implanted devices inserted less than 6 weeks ago: Stent No IVC Filter No Embolization Coils No Is your patient's weight >350lbs or abdominal and shoulder width >60cm? No Does your patient have Renal Failure, Chronic or Acute Renal Disease? No If ordering a contrasted enhanced MRI, you will be required to complete the order for creatine eGFR which is located at the bottom of the MRI ordering screen. If your patient is 60 years or older, the patient will need a recent eGFR within 30 days prior to the exam. NOTE: Incorrectly answering these questions may result in a delay in the procedure. A patient with a device or implant does not automatically mean the patient cannot receive an MRI. If your patient will have difficulty with a confined space, the provider will be responsible for ordering a sedation prior to the procedure, or to order an alternative procedure. Report Status: Verified Date Reported: JUL 05, 2023 Date Verified: JUL 05, 2023 Filter Tip Inspector E-Sig:/ES/MAR REYES Report: Case [id number], [id number]. MRI BRAIN W/O&W CONT, MRI 3D RENDERING W/O INDEPENDENT STATION POSTPROCESS HISTORY: Epilepsy TECHNIQUE: Epilepsy protocol COMPARISON: Brain MRI 06/13/2012 FINDINGS: No acute intracranial hemorrhage, midline shift or mass effect. No diffusion restriction. CSF spaces appear normal for age. Few few very small T2 and FLAIR hyperintense white matter foci, nonspecific in a patient of this age but statistically most likely representing small vessel microvascular ischemic disease. A couple of these lesions are faintly identifiable on the prior study as well. On the postcontrast examination there is no abnormal brain enhancement. Minimal right lateral mastoid air cell opacification. Minimal areas of mucosal thickening within the frontal, ethmoid and right maxillary sinus. Nasal septum moderately bowed toward the right. Orbits appear unremarkable. Impression: Few T2 and FLAIR hyperintense foci, statistically most likely attributable to small vessel microvascular ischemic disease with a couple of these lesions also faintly discernible on the prior study as well. Otherwise no focal brain parenchymal abnormality or abnormal contrast enhancement is identified. Primary Interpreting Staff: MAR REYES, RADIOLOGIST (Filter Tip Inspector) /MAR WOLFE [facility] Jul 05, 2023 08:26 AM LDCT LUNG CANCER S CREENING: AMPARO JUSTIN [id number] -[id number] M Ex Date: JUL 05, 2023@08:26 Req Phys: NADIR RAJPUT Loc: [facility] 7 PCP (Req'g Loc) Img Loc: [facility] Service: Unknown (Case [id number] COMPLETE) LDCT LUNG CANCER SCREENING (CT Detailed) CPT:94399 Reason for Study: 58 y/o male with h/o tobacco use Clinical History: Report Status: Verified Date Reported: JUL 05, 2023 Date Verified: JUL 05, 2023 Filter Tip Inspector E-Sig:/ES/RED HUDSON Report: EXAM: LDCT LUNG CANCER SCREENING ADDITIONAL HISTORY: Baseline COMPARISON: None PROTOCOL: Screening protocol, low dose, non-contrast CT chest was performed at the local [place] facility in accordance with Lung-Rads 2021. Additional coronal and sagittal reconstructions. MIP reconstructions were reviewed. Secondary computer-aided detection post-processing used. RADIATION DOSE: CTDI(vol): 0.61 mGy DLP: 26 mGy*cm INDEX NODULE: No suspicious pulmonary nodule. OTHER NODULES: None. LUNG/AIRWAY FINDINGS: Linear, discoid and consolidative juxtapleural subsegmental atelectasis involving the right middle and right lower lobes with smooth partially calcified right pleural plaques compatible with likely previous asbestos exposure. Pulmonary hyperinflation. EMPHYSEMA: Severe HEART, MEDIASTINUM AND LYMPH NODES: No significant abnormalities. VISUAL CORONARY ARTERY CALCIFICATIONS: None apparent UPPER ABDOMEN: Right renal cortical cyst. BONES, SOFT TISSUES, AND ADDITIONAL FINDINGS: Developing thoracic Baastrup's disease. Impression: LUNG-RADS: 1: Negative. No visible noncalcified pulmonary nodular opacities. RECOMMENDATION: [address] follow-up, if patient meets screening criteria. LUNG-RADS MODIFIER: N/A. Primary Interpreting Staff: RED HUDSON Diagnostic Radiologist (Filter Tip Inspector) /RED LINDSEY [facility] Encounter Notes: All associated encounter notes This section contains the clinical notes associated to the Encounter. Date/Time Encounter Note(s) Provider Source Jul 12, 2023 09:24 AM OPTOMETRY NOTE: LOCAL TITLE: OPTOMETRY NOTE STANDARD TITLE: OPTOMETRY NOTE DATE OF NOTE: JUL 12, 2023@09:24 ENTRY DATE: JUL 12, 2023@09:24:10 AUTHOR: [place] HOANG EXP COSIGNER: URGENCY: STATUS: COMPLETED Last seen 02/2022 Reason for visit: Routine exam, glasses CC: 1. PT here for routine exam, new glasses High myopia OD, and anisometropia Tolerates glasses fairly well, states he is not currently interested in SCLs. No changes in vision Ocular meds: none Ocular ROS: (+) Myopia, anisometropia Family OcHX: (-) blindness (-) glaucoma (-) AMD (-) RD Cardiovascular ROS: no change from problem & medication lists [facility] Problem list, medications and allergies reviewed: [facility] Serology for Diabetes GLUCOSE 93 mg/dL 05/21/2023 09:54 HGA1C 5.8 % 05/21/2023 09:54 Cardiovascular BP: 116/80 (05/21/2023 09:38) Pulse: 105 (05/21/2023 09:38) Neuro: Orientation: Normal Psych: Mood/Affect: Normal Depression/suicide ideation: NO VISUAL ACUITY With correction Distance Visual Acuity O.D. 20/30 O.S. 20/25 Pupils PERRL OU (-)APD Confrontation: FTFC OU Extra-Ocular Muscles Full OU Externals/adnexa: Unremarkable OU Refraction: OD SPHERE: -5.50 CYL: -1.75 AXIS: 8 20/25 slow OS SPHERE: -1.50 CLY: -3.25 AXIS: 10 20/20 SLIT LAMP EXAMINATION Lids/Lashes/Lacrimal No blepharitis OU Conjunctiva/Sclera White/quiet OU Cornea Clear OU Ant Chamber Deep and quiet OU Iris Normal, (-)NVI OU Lens Gr 1 NS cataract OU Intraocular Pressures (Goldmann) 1 gtt fluress Date: O.D. O.S. Time Meds 07/12/23923 none RETINAL EVALUATION 1 phenyleph 2.5%, 1 trop 1% OU DFE Dilated retinal exam Optic Nerve OD: 0.3 CDR Flat, pink, distinct (-)NVD OS: 0.4 CDR Flat, pink, distinct (-)NVD Vessels: 2/3 OU Macula: O.D. Flat, clear (-)CSME O.S. Flat, clear (-)CSME Post Pole: O.D. Clear O.S. Clear Periphery: OD: Flat and attached, Mild WWOP OS: Flat and attached, Mild WWOP Vitreous: syneresis OU Assessment 07/12/23 1. Refractive error OU Significant anisometropia, tolerates well in DVO glasses Suspect mild amblyopia OD Has previously worn SCLs, no longer interested at this time 2. Mild age related cataracts OU NVS Plan 07/12/23 1. New glasses Discussed SCLs, pt will let me know if he would like refit. 2. Monitor 12 months RTC 12 months /es/ MONTA[place] HOANG Virtual Customer Assistant Signed: 07/13/2023 08:31 [place] HOANG [facility]
--- OUTSIDE RECORDS SUMMARY | 2024-07-10 12:47 | XMS_ITS | Clinical Summary ---
Author Organization [facility] Address [address] [place] [address] Care Team Providers Care Strategic Accounts Manager Name Role Phone [facility], Jus Carrington Primary Care Pro vider Allergies No known active allergies Medications No known medications Active Problems Problem Noted Date Diagnosed Date Bilateral tinnitus 02/17/2022 Sensorineural hearing loss (SNHL) of both ears 1 04/19/2021 [place] syndrome 12/29/2018 Upper extremity injury, right, initial encounter 12/15/2018 Overview (12/15/2018): Added automatically from request for surgery [id number] Brachial plexopathy 09/26/2018 Assessment & Plan (09/26/2018 [...] once results are available Lung mass 11/07/2009 Surgical History Surgery Date Site/Laterality Comments SCROTAL SURGERY 01/06/2019 Incision and drainage under local Medical History Medical History Date Comments Difficulty hearing Hearing aid worn Wears dentures Pneumonia 1987 Asthma Limited joint range of motion Shoulder weakness Shoulder pain Family History Medical History Relation Name Comments No Known Problems Brother Diabetes Daughter No Known Problems Father No Known Problems Mother No Known Problems Other No Known Problems Sister Anesthesia problems Neg Hx Relation Name Status Comments Brother Daughter Father Mother Other Sister Social History Tobacco Use Types Packs/Day Years [...] on file Legal Sex Male 8:56 AM 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 Gender Identity Not on file Sexual Orientation Not on file Obstetrics History Last Filed Vital Signs Vital Sign Reading Time Taken Comments Blood Pressure 116/74 02/25/2019 8:55 AM 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 Pulse 83 02/25/2019 8:55 AM 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 Temperature 36.6 C (97.9 F) 02/25/2019 8:55 AM 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 Respiratory Rate 19 02/25/2019 8:55 AM 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 Oxygen Saturation 98% 02/25/2019 8:55 AM 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 Inhaled Oxygen Concentration - - Weight 68 kg (150 lb) 02/17/2022 11:17 AM CDT Height 185.4 cm (6' 1 ) 02/17/2022 11:17 AM CDT Body Mass Index 19.79 02/17/2022 11:17 AM CDT Plan of Treatment Health Maintenance Due Date Last Done Comments Colon Cancer Screening-Colonoscopy 1966 Depression Screening 1966 Hepatitis C Screening 1966 Prostate Cancer Screening-PSA 1966 DTaP/Tdap/Td Vaccine (1 - Tdap) 1977 Hepatitis B Screening 1984 Regular Well Visit/Exam 18-64 1984 Pneumococcal vaccine <65 (1 of 2 - PCV) 1985 Zoster Vaccine (1 of 2) 2016 Covid-19 Vaccine (3 - 2023- season) 12/19/202305/2020, 06/28/2020 Influenza Vaccine (#1) 2023 Insurance [employer] [place] [employer] [place] [employer] Directives For more information, please contact: [phone] * Full Code (Latest Code Status on File) Date Activated Date Inactivated Comments 02/22/2019 6:34 PM 02/23/2019 4:22 PM Care Teams Strategic Accounts Manager Relationship Specialty Start Date End Date [facility], Jus Carrington [address] [place] [id number] PCP - General Genetics 09/28/18
--- OUTSIDE RECORDS SUMMARY | 2024-07-10 12:47 | XMS_ITS | Encounter Summary ---
Author Name [facility] [place] [facility] [place] [facility] [place] [facility] [place] Address [address] [place] [address] Care Team Providers Care Metal Can Inspector Name Role Phone NADIR RAJPUT Primary Care [...] Walker's Name Patient's Relationship to Policy Walker CAREAPPLETON ([id number]) RX PRESCRIPT ION GENER AL MOTOR S Jun 18, 2015 [id number] [phone] OTF JUSTIN PATIENT MEDICARE (WNR) MEDICARE (M) PART A Jan 17, 2021 PART A [id number] AMPARO JUSTIN SR PATIENT Selected Encounter This section includes the information on record at [place] for the Encounter. Date/Time Encounter Type Encounter Description Reason Provider Source Nov 24, 2023 09:30 AM OFFICE O/P EST LOW 20 MIN PRIMARY CARE/MEDICINE ICD-10-CM R56.9 Unspecified convulsions SHYANNE RAJPUT Fabian Encounter Template Text not used by [place] Assessments - Encounter Diagnoses This section includes the primary and secondary diagnoses documented for the Encounter. Date/Time Primary/Secondary Diagnosis Diagnosis Name Provider Source Nov 24, 2023 10:23 AM PRIMARY Unspecified convulsions SHYANNE RAJPUT [facility] Nov 24, 2023 10:23 AM SECONDARY Male erectile dysfunction, unspecified SHYANNE RAJPUT [facility] Nov 24, 2023 10:23 AM SECONDARY Moderate protein-calorie malnutrition SHYANNE ARJPUT [facility] Nov 24, 2023 10:23 AM SECONDARY Other problems related to lifestyle SHYANNE RAJPUT [facility] Nov 24, 2023 10:23 AM SECONDARY Tobacco use SHYANNE RAJPUT [facility] Nov 24, 2023 10:23 AM SECONDARY Unspecified hearing loss, unspecified ear SHYANNE RAJPUT [facility] Nov 24, 2023 10:23 AM SECONDARY Unspecified mood [affective] disorder SHYANNE RAJPUT [facility] Nov 24, 2023 10:23 AM SECONDARY Vitamin D deficiency, unspecified SHYANNE RAJPUT [facility] Plan of Treatment: Future Appointments (+ 6 months) and Future Tests (+/- 45 days) The Plan of Treatment section includes future care activities for the patient from all [place] treatmentfacilities. This section includes future appointments and future orders which are active, pending or scheduled. Future Appointments This section includes appointments that were scheduled to occur 6 months from the date of the Encounter, up to a maximum of 20 appointments. The data comes from all [place] treatment facilities. Appointment Date/Time Appointment Type Appointme nt Facility Name Feb 02, 2024 02:00 PM AMBULATORY - MEDICINE [facility] Mar 06, 2024 10:00 AM AMBULATORY - MEDICINE [facility] May 22, 2024 01:30 PM AMBULATORY [facility] Active, Pending, and Scheduled Orders This section includes a listing of several types of active, pending, and scheduled orders, including clinic medications orders, diagnostic test orders, procedure orders and consult orders; where the start date of the order is 45 days before the date of the Encounter or 45 days after the date of theEncounter. The data comes from all [place] treatment facilities. Test Date/Time Test Type Test Details Facility Name Nov 24, 2023 12:00 AM Laboratory - Chemi stry Order OCCULT BLOOD FIT X1 SCREEN STOOL FECES SP [facility] Lab Results: +/- 30 days of the encounter This section includes the Chemistry and Hematology Lab Results on record with [place] for the patient. Radiology Reports and Pathology Reports are provided separately, in subsequent sections. Lab Results This section contains the Chemistry/Hematology Results that were resulted 30 days before or 30 daysafter the date of the Encounter. Date/Time Source Result Type Result - Unit Interpretation Reference Range Comment Nov 24, 2023 10:20 AM [facility] VITAMIN D, 25-HYDROXY Specimen Type: SERUM No comment entered. Ordering Provider: CARY RAJPUT Report Released Date/Time: Nov 24, 2023 10:09 AM Reporting Lab: [facility] [address] [facility] [id number] Performing Lab: [facility] [address] [facility] [address] VITAMIN D, 25-HYDROXY 34.6 ng/mL 30-96 Vital Signs: All taken on the encounter date This section contains inpatient and outpatient Vital Signs collected on the date of the Encounter. Date/Time Temperature Pulse Blood Pressure Respiratory Rate SP02 Pain Height Weight Body Mass Index Source Nov 24, 2023 09:46 AM 98.2 105 129/84 18 97 0 66 148.2 24 [facility] Social History: Smoking Status (Most current) and Tobacco Use (All prior to encounter date) This section includes the most current, and the historical, smoking and tobacco- related health factors from the [place] facility where the Encounter took place. Current Smoking Status This section includes the most current smoking, or tobacco-related health factor, from the [place] facility where the Encounter took place. Date/Time Current Smoking Status Comment Elias ity Nov 24, 2023 09:30 AM [place]-TOBACCO USER EVERY DAY [facility] Tobacco Use History This section includes a history of the smoking, or tobacco-related health factors, that were collected on or before the date of the Encounter. The data comes from the [place] facility where the Encounter took place. Date/Time Smoking Status/Tobacco Use Comment F acility Nov 24, 2023 09:30 AM VA-TOBACCO USE ADVICE [facility] Nov 24, 2023 09:30 AM VA-TOBACCO USE BROILER CHEF OR COOK NO [facility] Nov 24, 2023 09:30 AM VA-TOBACCO USE MED NO [facility] Nov 24, 2023 09:30 AM VA-TOBACCO USE WI 30 MIN OF WAKE UP [facility] Nov 24, 2023 09:30 AM VA-TOBACCO USER EVERY DAY [facility] Nov 23, 2022 11:00 AM VA-TOBACCO USE 30 YEARS OR MORE [facility] Nov 23, 2022 11:00 AM VA-TOBACCO USE ADVICE [facility] Nov 23, 2022 11:00 AM VA-TOBACCO USE BROILER CHEF OR COOK NO [facility] Nov 23, 2022 11:00 AM VA-TOBACCO USE MED NO [facility] Nov 23, 2022 11:00 AM VA-TOBACCO USE WI 30 MIN OF WAKE UP [facility] Nov 23, 2022 11:00 AM VA-TOBACCO USER EVERY DAY [facility] Dec 15, 2021 03:00 PM VA-TOBACCO USE 30 YEARS OR MORE [facility] Dec 15, 2021 03:00 PM VA-TOBACCO USE ADVICE [facility] Dec 15, 2021 03:00 PM VA-TOBACCO USE BROILER CHEF OR COOK NO [facility] Dec 15, 2021 03:00 PM VA-TOBACCO USE MED NO [facility] Dec 15, 2021 03:00 PM VA-TOBACCO USE WI 30 MIN OF WAKE UP [facility] Dec 15, 2021 03:00 PM VA-TOBACCO USER EVERY DAY [facility] Sep 17, 2020 11:00 AM VA-TOBACCO USE 30 YEARS OR MORE [facility] Sep 17, 2020 11:00 AM VA-TOBACCO USE ADVICE [facility] Sep 17, 2020 11:00 AM VA-TOBACCO USE BROILER CHEF OR COOK NO [facility] Sep 17, 2020 11:00 AM VA-TOBACCO USE MED NO [facility] Sep 17, 2020 11:00 AM VA-TOBACCO USE WI 30 MIN OF WAKE UP [facility] Sep 17, 2020 11:00 AM VA-TOBACCO USER EVERY DAY [facility] August 21, 2019 02:46 PM VA-TOBACCO USE 30 YEARS OR MORE [facility] August 21, 2019 02:46 PM VA-TOBACCO USE ADVICE [facility] August 21, 2019 02:46 PM VA-TOBACCO USE BROILER CHEF OR COOK NO [facility] August 21, 2019 02:46 PM VA-TOBACCO USE MED NO [facility] August 21, 2019 02:46 PM VA-TOBACCO USE WI 30 MIN OF WAKE UP [facility] August 21, 2019 02:46 PM VA-TOBACCO USER EVERY DAY [facility] September 15, 2018 02:11 PM VA-TOBACCO USE > 1 5 LESS THAN 30 YEARS [facility] September 15, 2018 02:11 PM VA-TOBACCO USE [address] [facility] September 15, 2018 02:11 PM VA-TOBACCO USE ADVICE [facility] September 15, 2018 02:11 PM VA-TOBACCO USE BROILER CHEF OR COOK NO [facility] September 15, 2018 02:11 PM VA-TOBACCO USE BROILER CHEF OR COOK YES [facility] September 15, 2018 02:11 PM VA-TOBACCO USE MED NO [facility] September 15, 2018 02:11 PM VA-TOBACCO USE WI 30 MIN OF WAKE UP [facility] September 15, 2018 02:11 PM VA-TOBACCO USER EVERY DAY [facility] Aug 03, 2012 01:56 PM CURRENT TOBACCO USER [facility] Aug 03, 2012 01:56 PM TOBACCO MEDS OFFERED BUT DECLINE D [facility] Encounter Notes: All associated encounter notes This section contains the clinical notes associated to the Encounter. Date/Time Encounter Note(s) Provider Source Nov 25, 2023 08:51 AM PHYSICIAN LETTERS: LOCAL TITLE: TEST RESULT GENERAL LETTER ST STANDARD TITLE: PHYSICIAN LETTERS DATE OF NOTE: NOV 25, 2023@08:51 ENTRY DATE: NOV 25, 2023@08:51:59 AUTHOR: NADIR RAJPUT EXP COSIGNER: URGENCY: STATUS: COMPLETED [facility] [address] [place] [address] NOV 25, 2023 AMPARO JUSTIN [address] [facility] [address] [place], [place] [address] Dear Amparo Justin, I would like to update you on your recent test results. VITAMIN D - Helps promote the proper utilization of calcium and phosphorus, thereby producing proper bone maintenance. VITAMIN D, 25-HYDROXY 34.6 ng/mL 11/24/2023 10:20 These readings are within normal limits. Continue taking your vitamin D3 supplement daily. PLAN Please continue your treatment as we discussed during your visit. If you have any questions please call your mattress spring encaser. I look forward to seeing you at your next clinic appointment. Thank you for choosing the [facility] for your healthcare. FUTURE APPOINTMENTS: 05/22/2024 13:30 [facility] PACT 7 PCP 07/11/2024 13:00 [facility]-OPTOMETRY 2 08/28/2024 12:00 [facility]-DENTAL DMD2 Sincerely, NADIR RAJPUT, MSN, AGNP-C NURSE PRACTITIONER AMPARO JUSTIN TAYLOR L [facility] Nov 24, 2023 09:55 AM PRIMARY CARE NOTE: LOCAL TITLE: PRIMARY CARE PROVIDER [facility] STAND[facility] TITLE: PRIMARY CARE NOTE DATE OF NOTE: NOV 24, 2023@09:55 ENTRY DATE: NOV 24, 2023@09:55:51 AUTHOR: NADIR RAJPUT EXP COSIGNER: URGENCY: STATUS: COMPLETED ESTABLISHED PATIENT [id number] REASON FOR VISIT/CHIEF COMPLAINT: follow up HPI: PMH, see problem list 58 y/o male who presents to the medical clinic for his scheduled follow up visit. The purpose of the visit today is to follow up on the veterans chronic medical conditions. Denies new concerns or complaints. Last PCP visit: 05/21/2023 Seizure disorder. Management per Neurology. The continued to have seizures while taking Keppra 1500mg BID. The medication was discontinued and changes to oxcarbazepine 300mg BID. The feels slightly lethargic on the medication. He is planning to reschedule his appt with neurology to follow up post medication transition. MRI of the brain was completed in June 2023. WHAT IS YOUR GOAL FOR TODAY? F/U chronic medical conditions SOURCE(S) OF HISTORY: -Patient PAST MEDICAL HISTORY: 1) Cannabis abuse (SNOMED CT 82419825) comment: UDS + cannabis 07/27/2012 2) Erectile dysfunction (SNOMED CT 130668181) 3) Tobacco User ([facility] [id number]) 4) Hearing Loss ([facility] [id number]) 5) Drinks alcohol 6) Vitamin D Deficiency (SCT 3387587) 7) Mood disorder 8) Pain of right shoulder joint 9) Tinnitus 10) Seizure ([facility] 04082193) 11) Malnutrition (calorie) FAMILY HISTORY: DM: Daughter, DM I CAD/IHD: none MH: none CA: none SOCIAL HISTORY: Tobacco use: present user, smokes <1 PPD, smoking x 30 years ETOH use: consumes ~ one beer per week Illicit drug use: present user marijuana -Lives: lives with -Grocery: independent -Meals: independent -ADL's: independent -Transportation: private vehicle; provided transportation today -Medications: independent -finances: independent Allergy: Patient has answered NKA Allergy list reviewed and remains current. MEDICATIONS: Active Outpatient Medications (including Supplies): Active Outpatient Medications Status 1) LEVETIRACETAM 750MG TAB TAKE TWO TABLETS BY MOUTH ACTIVE TWICE A DAY FOR SEIZURES SWALLOW WHOLE, DO NOT CRUSH OR CHEW. 2) MULTIVITAMIN CAP/TAB TAKE 1 TABLET BY MOUTH ONCE A ACTIVE DAY FOR NUTRITION/DIETARY SUPPLEMENTATION 3) OXCARBAZEPINE 300MG TAB TAKE ONE TABLET BY MOUTH ACTIVE TWICE A DAY FOR SEIZURES 4) SILDENAFIL CITRATE 100MG TAB TAKE ONE-HALF TABLET BY ACTIVE MOUTH EVERY WEEK NEEDED FOR ERECTILE DYSFUNCTION (TAKE 60 MINUTES PRIOR TO SEXUAL ACTIVITY) - LIMIT 4 DOSES PER 30 DAYS Active Non-VA Medications Status 1) Non-VA CHOLECALCIFEROL (LOW DOSE VIT D) - (OTC) TAB ACTIVE BY MOUTH 2) Non-VA LEVETIRACETAM 500MG TAB 1500MG BY MOUTH EVERY ACTIVE MORNING AND 1000MG BY MOUTH EVERY EVENING 6 Total Medications MEDICATION RECONCILIATION: completed REVIEW OF SYSTEMS: See HPI for further details of positive complaints. All 10 systems reviewed and otherwise negative. PHYSICAL EXAMINATION: VITALS (most recent, as listed in the electronic record): Temperature: 98.2 F [36.8 C] (11/24/2023 09:46) BP: 129/84 (11/24/2023 09:46) Pulse: 105 (11/24/2023 09:46) Resp: 18 (11/24/2023 09:46) PulsOx: 97% (11/24/2023 09:46) Pain: 0 (11/24/2023 09:46) Weight: Measurement DT WEIGHT LB(KG)[BMI] 11/24/2023 09:46 148.2(67.22)[24] 05/21/2023 09:38 145(65.77)[20] 12/16/2022 11:49 147(66.68)[19] PHYSICAL EXAMINATION: General appearance: well-groomed, well-nourished, in [...] 09:54 === Vitamin D: VITAMIN D, 25-HYDROXY 19.8 L ng/mL 05/21/2023 09:54 VITAMIN D, 25-HYDROXY 67.5 ng/mL 06/15/2022 11:54 VITAMIN D, 25-HYDROXY 15.8 L ng/mL 09/17/2020 11:49 === UA: URINE COLOR Yellow 06/15/2022 11:54 APPEARANCE Clear 06/15/2022 11:54 U.PH 5.5 06/15/2022 11:54 U.BILIRUBIN Negative mg/dL 06/15/2022 11:54 U.NITRITE Negative mg/dL 06/15/2022 11:54 URINE RBC/HPF 1 /HPF 06/15/2022 11:54 URINE WBC/HPF 1 /HPF 06/15/2022 11:54 BACTERIA RARE /HPF 06/15/2022 11:54 SQUAMOUS EPITH. <1 /HPF 06/15/2022 11:54 MUCUS OCC /LPF 06/15/2022 11:54 === ASSESSMENT/PLAN: # Seizure disorder w/ aura: - Eval/management per [place] Neurology - Continue oxcarbazepine as directed - Denies seizure activity since 07/2023 # Chronic right shoulder pain: - Symptoms controlled with OTC NSAIDs PRN # Vit D Def: - Sub-optimal control - Continue daily OTC cholecalciferol supplement, repeat labs # Tobacco Use: - Not ready to quit. Declined resources for smoking cessation # ETOH: - [place] has significantly reduced his ETOH consumption. Acknowledgement and encouragement of success. # Sensorineural hearing loss: - Has hearing aid bilaterally # ED: - Symptoms stable on sildenafil 50mg PRN - Medication s/e and safety reviewed. # Malnutrition: - BMI improved since last OPV - Continue multivitamin # Mood disorder: - Denies need to speak with MH clinic - Denies SI or HI, low risk for self-harm HM: Colorectal cancer screening: -Last completed: No prior h/o c-scope. FOBT negative 06/2022 -Due: FOBT 06/2023 Prostate cancer screening: Last completed: 0.416 ng/mL 05/21/2023 09:54 Lung cancer screening: Eligibility: LDLCT completed in 06/2023, annual f/u recommended AAA Screening: Eligibility: defer due to age ADMINISTERED Immunization Series Date Facility Reaction Info COVID-19 (PFIZER), MRNA, LNP-S, * 2 [facility] COVID-19 (PFIZER), MRNA, LNP-S, * 1 [facility]* REFUSED ======= Immunization Date Facility Info COVID-19 (MODERNA), MRNA, LNP-S,* 11/24/2023 [facility]* <I> COVID-19 (PFIZER), MRNA, LNP-S, * 11/23/2022 [facility]* <I> INFLUENZA, UNSPECIFIED FORMULATI* 05/21/2023 [facility]* <I> INFLUENZA, UNSPECIFIED FORMULATI* 05/07/2022 [facility]* <I> INFLUENZA, UNSPECIFIED FORMULATI* 05/07/2022 . [facility]* <I> PNEUMOCOCCAL CONJUGATE, UNSPECIF* 11/24/2023 [facility]* <I> PNEUMOCOCCAL CONJUGATE, UNSPECIF* 05/21/2023 [facility]* <I> PNEUMOCOCCAL CONJUGATE, UNSPECIF* 11/23/2022 [facility]* <I> PNEUMOCOCCAL CONJUGATE, UNSPECIF* 05/07/2022 [facility]* <I> TDAP 11/24/2023 [facility]* <I> TDAP 05/21/2023 [facility]* <I> ZOSTER RECOMBINANT 11/24/2023 [facility]* <I> ZOSTER RECOMBINANT 05/21/2023 [facility]* <I> ZOSTER RECOMBINANT 11/23/2022 [facility]* <I> ZOSTER RECOMBINANT 05/07/2022 [facility]* <I> clinical reminders completed; educated on continuing to avoid salt, conc sweets; benefits of continued exercise, reg PCP visits, routine eyes exams Plan of care has been discussed with including expected therapeutic benefits and potential side effects of prescribed medications and treatments. Current medication list has been reconciled with and updated accordingly. [place] was instructed to keep all scheduled appointments and to contact enterprise account manager for any additional problems. [place] verbalizes understanding and is in agreement with the plan of care. RTC: 6m or sooner PRN PREVENTION & SCREENING: ALCOHOL: Clinical Reminder not due now or within a month BLOOD PRESSURE: Clinical Reminder not due now or within a month HEMOGLOBIN A1C: Clinical Reminder not due now or within a month RHS Screen: RHS Screen Session Format: Face to Face Environmental Check Upon inquiry, the individual reports that the environment is safe to proceed. Informed Consent to Screen and Document The individual consents to proceed with screening. The individual consents to documentation of responses. PRIMARY SCREEN: In the past 12 months, how often did a current or former intimate partner (e.g., boyfriend, girlfriend, , , sexual partner): 1. Scream or curse at you Never 2. Insult or talk down to you Never 3. Threaten you with harm Never 4. Physically hurt you Never 5. Force or pressure you to have sexual contact against your will, or when you were unable to say no Never The HITS tool (items 1-4 above) is [place] copyright protected by Sterling German MD, and the user has full rights to use it throughout the [place] system. PRIMARY SCREEN RESULT: The Primary Screen is NEGATIVE. The individual answered never to all forms of IPV above (i.e., answered never to all 5 items) The individual accepts education and/or resources: No EDUCATION: The individual indicated readiness to learn. Education offered during this session as noted above. The individual indicated understanding by asking relevant questions and making appropriate comments. No barriers to learning were observed or identified. Avg Risk Colorectal Cancer Screen: AVERAGE RISK colorectal cancer screening is due based on information available to this clinical reminder FOBT/FIT (Fecal Immunochemical Testing) has been ordered. See order tab for details. /miles/ NADIR RAJPUT, MSN, AGNP-C NURSE PRACTITIONER Signed: 11/24/2023 10:23 NADIR RAJPUT [facility] Nov 24, 2023 09:51 AM NURSING NOTE: LOCAL TITLE: V15 PACT FACE TO FACE NOTE [facility] STAND[facility] TITLE: NURSING NOTE DATE OF NOTE: NOV 24, 2023@09:51 ENTRY DATE: NOV 24, 2023@09:51:11 AUTHOR: FAROOQ MCCLURE EXP COSIGNER: URGENCY: STATUS: COMPLETED Provider Visit: Patient Identifiers : Full Name Date of Reason for visit: Established Follow-Up Mode of Arrival: Ambulatory Allergy Review: Patient has answered NKA Allergy list reviewed and remains current. Recent Vital Signs: Temperature: 98.2 F [36.8 C] (11/24/2023 09:46) Pulse: 105 (11/24/2023 09:46) Respiration: 18 (11/24/2023 09:46) B/P: 129/84 (11/24/2023 09:46) Pain: 0 (11/24/2023 09:46) Wt: 148.2 lb [67.22 kg] (11/24/2023 09:46) Ht: 66 in [167.6 cm] (11/24/2023 09:46) BMI: 24.0 POX: 97% (11/24/2023 09:46) Would you like to discuss any personal problem, family problem, alcohol use, drug use, or a mental or emotional illness? No My [facility] ([facility]), please select appointment type: Face to face: Yes- Done Contact provided Primary Care phone number and encouraged to call if any questions or concerns. Review that after hours nurse line [phone] and emergency room are available 09/11 for patient use. Contact verbalized good understanding. [facility] MAP: PERSONAL HEALTH PLAN INVENTORY & MAP 's Response: My family Tdap Immunization: The patient declines to receive the recommended dose of Tdap vaccine. Immunization: TDAP Refusal Reason: PATIENT DECISION Patient refuses all immunization(s) in the TDAP group Date Documented: 11/24/23 09:52 [facility] DIGITAL DIVIDE CAPABILITY REMINDER: Patient is interested in [facility] appointments. [facility] requirements have been communicated to the [place]. The [place] confirms understanding of those requirements and indicates the following [facility] needs: [place] has completed previous [facility] appointments and confirms they are STILL [facility] CAPABLE. Future [facility] appointments can be scheduled. 'S RIGHT TO DECLINE STATEMENT understands they have the right to decline the use of Telehealth Technology at any time without adverse affects on their continued access to healthcare. Tobacco Use Screening: The patient uses tobacco every day. The patient uses tobacco within 30 minutes of waking up. The patient has been smoking or using tobacco for thirty years or more. Patient was advised to quit smoking and/or using tobacco. Discussion with patient included: - Quitting smoking or tobacco use is one of the most important things you can do to protect and improve your health and [place] has the resources to support you. - Set a quit date when you are ready to quit. - Get support from your family and friends. - Review any past quit attempts- What helped? What didn't? - On the day you plan to quit, get rid of all cigarettes and tobacco products from your home, car or work. - Using a combination of behavioral counseling or other support strategies and FDA-approved cessation medications is the most effective way to ensure success in quitting. Patient was offered Behavioral Counseling and other support strategies to assist with quitting. Discussion with patient included: - Behavioral counseling or other support strategies greatly increases your chances of successfully quitting smoking or tobacco use by helping you develop a quit plan and providing support and other strategies to make behavioral changes to help you quit. - [place] has a number of behavioral counseling options to help you with quitting, including: * Provide information about the facility smoking or tobacco use treatment options or clinics * [place]'s national quitline, 0-635-HQQX-VET, with counseling available Wednesday-Wednesday The patient was not interested in receiving additional information about how to use the treatment options discussed. Patient was offered FDA-approved cessation medications. Discussion with patient included: - Medications for Nicotine replacement therapy such as the patch, gum or lozenge, and other medications such as varenicline or bupropion, can play an important role in the initial weeks and months after you quit smoking or tobacco use. - Medications help with cravings and withdrawal symptoms and they greatly increase your chances of successfully quitting. The patient was not interested in a prescription for tobacco cessation medications. Pneumococcal Conjugate Vaccine (PCV15/PCV20): Refuses PCV vaccine Immunization: PNEUMOCOCCAL CONJUGATE, UNSPECIFIED FORMULATION Refusal Reason: PATIENT DECISION Patient refuses all immunization(s) in the PneumoPCV group Date Documented: 11/24/23 09:53 Herpes Zoster (Shingles) Vaccine: The patient declines to receive the recommended dose of zoster (shingles) vaccine. Immunization: ZOSTER RECOMBINANT Refusal Reason: PATIENT DECISION Patient refuses all immunization(s) in the ZOSTER group Date Documented: 11/24/23 09:53 PTSD Screening: PC-PTSD-5 A PTSD screening test (PC-PTSD-5) was negative (score=0). IN THE PAST MONTH, have you ever had any experience that was so frightening, horrible or traumatic. For example: A serious accident or fire a physical or sexual assault or abuse An earthquake or flood A war Seeing someone be killed or seriously injured Having a loved one through homicide or suicide 1. Have you ever experienced this kind of event? NO 2. Had nightmares about the event(s) or thought about the event(s) when you did not want to? Response not required due to responses to other questions. 3. Tried hard not to think about the event(s) or went out of your way to avoid situations that reminded you of the event(s)? Response not required due to responses to other questions. 4. Been constantly on guard, watchful, or easily startled? Response not required due to responses to other questions. 5. [place] numb or detached from people, activities, or your surroundings? Response not required due to responses to other questions. 6. [place] guilty or unable to stop blaming yourself or others for the event(s) or any problems the event(s) may have caused? Response not required due to responses to other questions. Influenza Immunization: No influenza vaccination was received during the recent influenza season. COVID-19 Immunization: Refused Moderna Monovalent COVID-19 vaccine Immunization: COVID-19 (MODERNA), MRNA, LNP-S, PF, 50 MCG/0.5 ML (AGES 12+ YEARS) Refusal Reason: PATIENT DECISION Patient refuses all immunization(s) in the COVID-19 group Date Documented: 11/24/23 09:54 Suicide Screen: C-SSRS Screening Cotton-Suicide Severity Rating Scale (C-SSRS Screener) 1. Over the past month, have you wished you were or wished you could go to sleep and not wake up? No 2. Over the past month, have you had any actual thoughts of killing yourself? No 3. Over the past month, have you been thinking about how you might do this? Response not required due to responses to other questions. 4. Over the past month, have you had these thoughts and had some intention of acting on them? Response not required due to responses to other questions. 5. Over the past month, have you started to work out or worked out the details of how to kill yourself? Response not required due to responses to other questions. 6. If yes, at any time in the past month did you intend to carry out this plan? Response not required due to responses to other questions. 7. In your lifetime, have you ever done anything, started to do anything, or prepared to do anything to end your life (for example, collected pills, obtained a gun, gave away valuables, went to the roof but didn't jump)? No 8. If YES, was this within the past 3 months? Response not required due to responses to other questions. Alcohol Use Screen (AUDIT-C): Alcohol Screen: SCREEN FOR ALCOHOL (AUDIT-C) An alcohol screening test (AUDIT-C) was negative (score=3). 1. How often did you have a drink containing alcohol in the past year? Consider a drink to be a 12 ounce can or bottle of regular beer, 8 ounces of malt liquor, a 5 ounce glass of table wine, or a 1.5 ounce shot of liquor (like scotch, gin, or vodka). Two to four times a month 2. How many drinks containing alcohol did you have on a typical day when you were drinking in the past year? Three or four drinks 3. How often did you have six or more drinks on one occasion in the past year? Never /es/ FAROOQ MCCLURE LPN LICENSED PRACTICAL NURSE Signed: 11/24/2023 09:56 FAROOQ MCCLURE [facility]
--- OUTSIDE RECORDS SUMMARY | 2024-07-10 12:47 | XMS_ITS | Clinical Summary ---
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 Role Phone Unavailable Primary Care Provider Unavailabl e Social History Tobacco Use Types Packs/Day Years Used Date Smoking Tobacco: Never Assessed Sex and Gender Information Value Date Recorded Sex Assigned at Not on file Legal Sex Male 6:36 PM CDT Gender Identity Not on file Sexual Orientation Not on file Plan of Treatment Health Maintenance Due Date Last Done Comments Colorectal Cancer Screening Colonoscopy (10 Years) 1966 Annual Physical 1969 Hepatitis C 1984 DTaP, Tdap and Td Vaccines ( 1 - Tdap) 1985 Hepatitis B Vaccines (1 of 3 - 19+ 3-dose series) 1985 Zoster Vaccines (1 of 2) 2016 COVID-19 Vaccine (2023-2 5 season) 2023 Influenza Adult (#1) 2024 Meningococcal B Vaccine Aged Out No l onger eligible based on patient's age to complete this topic Meningococcal Vaccine Aged Out No ignacio juan eligible based on patient's age to complete this topic Pneumococcal Vaccine: Pediat rics (0 to 5 Years) and At-Risk Patients (6 to 64 Years) Aged Out No longer eligible b ased on patient's age to complete this topic RSV Immunizations Under 20 Months Aged Out No longer eligible based on patient's age to complete this topic
--- OUTSIDE RECORDS SUMMARY | 2024-07-10 12:47 | XMS_ITS ---
Author Name [facility] Address [address] [place] [address] Care Team Providers Care Pot Feeder Name Role Phone NADIR RAJPUT Primary Care [...] Walker's Name Patient's Relationship to Policy Walker CAREVERDI ([id number]) RX PRESCRIPT ION GENER AL MOTOR S Jun 18, 2015 [id number] [phone] OTF JUSTIN PATIENT MEDICARE (WNR) MEDICARE (M) PART A Jan 17, 2021 PART A [id number] AMPARO JUSTIN SR PATIENT Selected Encounter This section includes the information on record at [place] for the Encounter. Date/Time Encounter Type Encounter Description Reason Provider Source Jul 27, 2023 10:00 AM OFFICE O/P NEW MOD 45 MIN NEUROLOGY ICD-10-CM G40.009 Local-rel idio epi w seiz of loc onst,not ntrct,w/o stat epi KRISTANMARCY LOZOYA IHFabian Encounter Template Text not used by [place] Assessments - Encounter Diagnoses This section includes the primary and secondary diagnoses documented for the Encounter. Date/Time Primary/Secondary Diagnosis Diagnosis Name Provider Source Aug 04, 2023 03:32 PM PRIMARY Local-rel idio epi w seiz of loc onst,not ntrct,w/o stat epi KRISTANMARCY LOZOYA [facility] Plan of Treatment: Future Appointments (+ 6 months) and Future Tests (+/- 45 days) The Plan of Treatment section includes future care activities for the patient [facility] [place] [facility] This section includes future appointments and future orders which are active, pending or scheduled. Future Appointments This section includes appointments that were scheduled to occur 6 months from the date of the Encounter, up to a maximum of 20 appointments. The data comes from all [facility]. Appointment Date/Time Appointment Type Appointme nt Facility Name August 27, 2023 01:00 PM AMBULATORY - NONE [facility] Oct 12, 2023 01:00 PM AMBULATORY - MEDICINE [facility] Nov 24, 2023 09:30 AM AMBULATORY [facility] Radiology Reports: +/- 30 days of the [...] the Encounter. The data comes from all [facility]. Date/Time Radiology Report Provider Source Jul 05, 2023 08:35 AM MRI BRAIN W/O CONT : AMPARO JUSTIN [id number] -[id number] M Ex Date: JUL 05, 2023@08:35 Req Phys: NADIR RAJPUT Loc: [facility] PCP (Req'g Loc) Img Loc: [facility] Service: Unknown (Case [id number] COMPLETE) MRI BRAIN W/O&W CONT (MRI Detailed) CPT:62563 Contrast Media : unspecified contrast media Reason for Study: Epilepsy (Case 203 COMPLETE) MRI 3D RENDERING W/O INDEPENDENT (MRI Detailed) CPT:98151 Clinical History: Private neurologist requesting imaging due to recurrent seizures Responsible Attending: Nadir Rajput Attending Contact Number: Franny Resident Contact Number: Does your patient have [...] 05, 2023 Date Verified: JUL 05, 2023 Odd [employer] Day Worker E-Sig:/ES/MAR REYES Report: Case [id number], [id number]. MRI BRAIN W/O&W CONT, MRI 3D RENDERING [...] identified. Primary Interpreting Staff: MAR REYES, RADIOLOGIST (Odd [employer] Day Worker) /MAR WOLFE [facility] Jul 05, 2023 08:26 AM LDCT LUNG CANCER S CREENING: JUSTINTREVONEhsanISAIAS MONTILLA [id number] -1965 M Exm Date: JUL 05, 2023@08:26 Req Phys: NADIR RAJPUT Loc: [facility] 7 PCP (Req'g Loc) Img Loc: [facility] Service: Unknown (Case [id number] COMPLETE) LDCT LUNG CANCER SCREENING (CT Detailed) CPT:90024 Reason for Study: 58 y/o male with h/o tobacco use Clinical History: Report Status: Verified Date Reported: JUL 05, 2023 Date Verified: JUL 05, 2023 [employer] Day Worker E-Sig:/ES/RED HUDSON Report: EXAM: LDCT LUNG CANCER SCREENING ADDITIONAL HISTORY: Baseline COMPARISON: None PROTOCOL: Screening protocol, low dose, non-contrast CT chest was performed at the local [place] facility in accordance with Lung-Rads 2022. Additional coronal and sagittal reconstructions. MIP reconstructions [...] LUNG-RADS MODIFIER: N/A. Primary Interpreting Staff: RED HUDSON, Diagnostic Radiologist ([employer] Day Worker) /RED LINDSEY [facility] Encounter Notes: All associated encounter notes This section contains the clinical notes associated to the Encounter. Date/Time Encounter Note(s) Provider Source September 02, 2023 10:55 AM PHYSICIAN LETTERS: LOCAL TITLE: PHYSICIAN LETTERS STANDARD TITLE: PHYSICIAN LETTERS DATE OF NOTE: SEPTEMBER 02, 2023@10:55 ENTRY DATE: SEPTEMBER 02, 2023@10:55:36 AUTHOR: MARCY RUSHING EXP COSIGNER: URGENCY: STATUS: COMPLETED [facility] [address] [place] [address] AMPARO JUSTIN [address] [facility] [address] [place], [place] [address] RE: Amparo Justin : 1965 To Whom It May Concern: This letter is to certify that Mr. Justin is under neurological care for the management of epilepsy. As a result of the seizures, he has been recommended not to drive or to operate heavy machinery. This restriction applies according to the [place] law for a minimun of 6 months that applies after any breakthrough seizure. If Mr. Justin remains stable on medication with no breakthough spells the driving restriction expires after the 6 months. Mr. Justin has been instructed to notify us in case of breakthrough seizures in order to adjust treatment. Sincerely, MARCY RUSHING MD NEUROLOGY STAFF PHYSICIAN AMPARO JUSTIN JUAN [facility] Aug 05, 2023 01:34 PM ADDENDUM: LOCAL TITLE: Addendum STANDARD TITLE: ADDENDUM DATE OF NOTE: AUG 05, 2023@13:34 ENTRY DATE: AUG 05, 2023@13:34:01 AUTHOR: NADIR RAJPUT EXP COSIGNER: URGENCY: STATUS: COMPLETED Alerting RNCM, please send copy of the [facility] neurology notes to the [place] neurology office. . /es/ JOSE GUADALUPE GUERRA, AGNP-C NURSE PRACTITIONER Signed: 08/05/2023 13:34 Receipt Acknowledged By: 08/06/2023 15:49 /es/ GENET CAMPOS REGISTERED NURSE --- Original Document --- 07/27/23 NEUROLOGY OUTPATIENT CONSULT STL: I saw today in the outpatient neurology clinic Mr. Justin via telemedicine Chief Complaint: to establish care for epilepsy History of Present Illness: Mr. Justin is a 58 yo right [...] are either flexed at the elbows and grey goods marker, hands on a fist position and his legs stiff and extended. This last for about 30 sec to one minute. Afterwards he is drwosy, sleepy. His said that then august 20-25 minutes later he has another one and at that point he calls the ambulance and she said that be may have another one in the hospital. The last spell was in mid February 2023. Follwing that spell the dose of levetiracetam was adjusted again to 1500mg twice daily. Since then he remains stable. He tolerates the medication and he takes it regularly. He stated that work up includes brain MRI and actully it had one done here on 07/04 and he had a EEG that he said is normal. He stated his PCP requested records from his neurologist Dr. Hess in [place] Brain MRI dated 07/05/23: Impression: Few T2 and FLAIR hyperintense foci, statistically most likely attributable to small vessel microvascular ischemic disease with a couple of these lesions also faintly discernible on the prior study as well. Otherwise no focal brain parenchymal abnormality or abnormal contrast enhancement is identified. Primary Interpreting Staff: MAR REYES, RADIOLOGIST ([employer]dd [employer] Day Worker) /KLS Past Medical History: 1) Cannabis abuse (SNOMED CT 72706260) 2) Erectile dysfunction (SNOMED CT 724385382) 3) Tobacco User (SCT 009930632) 4) Hearing Loss (SCT 71579181) 5) Drinks alcohol 6) Vitamin D Deficiency (SCT 8973362) 7) Mood disorder 8) Pain of right shoulder joint 9) Tinnitus 10) Seizure (SCT 26783123) 11) Malnutrition (calorie) Allergies: Patient has answered NKA Medicines: Active Outpatient Medications (including Supplies): Active Outpatient Medications Status 1) MULTIVITAMIN CAP/TAB TAKE 1 TABLET BY MOUTH ONCE A ACTIVE DAY FOR NUTRITION/DIETARY SUPPLEMENTATION 2) SILDENAFIL CITRATE 100MG TAB TAKE ONE-HALF TABLET [...] MORNING AND 1000MG BY MOUTH EVERY EVENING 4 Total Medications Social History: He is . Two kids. Currently not working. Works for [employer] in the [employer]. Smokes less than 1 ppd. Few beers a day. He does smoke marijuana. He said that he is diable because of effie loss and depression. Family History: none Review of Systems: He is currently not on any medications other than levetiracetam. He denies any other recent problems with his health. He is currently not workind and he said that his prior neurologist had told him that he could return to work on August 17. Physical Examination: BP116/80 (05/21/2023 09:38), HR 105 (05/21/2023 09:38) Neurological Examination: The patient is alert and fully oriented, cooperative and follows commands. Speech and language are normal. Via video, normal cranial nerves. Unrestrictive movement Assessment and Plan: Impression: Mr. Justin has a history that is most consistent with epilepsy. Based on symptoms description partial with secondary generalization. He is on monotherapy with levetiracetam at the maximal recommended dose. No spells since the dose was increased. Based on this, will continue same dose. Plan and recommendations: Continue current treatment. We reviewed driving restrictions and general recommendations in patients with seizures. He manifested understanding. He knows that for [place] the driving restriction is for 6 months after each spell. I instructed him to call or to message me if any changes in his condition. I answered his questions to the best of my knowledge. He manifested understanding. Will like to review his records when available Follow up plan: 6 months Total tpime spent 50 min /miles/ MARCY RUSHING MD NEUROLOGY STAFF PHYSICIAN Signed: 07/27/2023 16:54 08/05/2023 ADDENDUM STATUS: COMPLETED Received non-VA records from Dr. Hess. Please advise if you would prefer the records be faxed or emailed. /miles/ JOSE GUADALUPE GUERRA, AGNP-C NURSE PRACTITIONER Signed: 08/05/2023 07:47 Receipt Acknowledged By: 08/05/2023 09:46 /miles/ MARCY RUSHING MD NEUROLOGY STAFF PHYSICIAN 08/05/2023 ADDENDUM STATUS: COMPLETED Please fax records to [phone]. Additionally please send them to [facility] for scanning into [facility]. Phuong /miles/ MARCY RUSHING MD NEUROLOGY STAFF PHYSICIAN Signed: 08/05/2023 09:47 Receipt Acknowledged By: 08/05/2023 13:33 /miles/ NADIR RAJPUT MSN, MAHAMED-C NURSE PRACTITIONER NADIR ARJPUT [facility] Aug 05, 2023 09:46 AM ADDENDUM: LOCAL TITLE: Addendum STANDARD TITLE: ADDENDUM DATE OF NOTE: AUG 05, 2023@09:46:19 ENTRY DATE: AUG 05, 2023@09:46:19 AUTHOR: MARCY RUSHING EXP COSIGNER: URGENCY: STATUS: COMPLETED Please fax records to [phone]. Additionally please send them to [facility] for scanning into [facility]S. Phuong RUSHING MD NEUROLOGY STAFF PHYSICIAN Signed: 08/05/2023 09:47 Receipt Acknowledged By: 08/05/2023 13:33 /miles/ NADIR RAJPUT, MSN, TETEP-C NURSE PRACTITIONER --- Original Document --- 07/27/23 NEUROLOGY OUTPATIENT CONSULT STL: I saw today in the outpatient neurology clinic Mr. Justin via telemedicine Chief Complaint: to establish care for epilepsy History of Present Illness: Mr. Justin is a 58 yo right [...] are either flexed at the elbows and grey goods marker, hands on a fist position and his legs stiff and extended. This last for about 30 sec to one minute. Afterwards he is drwosy, sleepy. His said that then august 20-25 minutes later he has another one and at that point he calls the ambulance and she said that be may have another one in the hospital. The last spell was in mid February 2023. Follwing that spell the dose of levetiracetam was adjusted again to 1500mg twice daily. Since then he remains stable. He tolerates the medication and he takes it regularly. He stated that work up includes brain MRI and actully it had one done here on 07/04 and he had a EEG that he said is normal. He stated his PCP requested records from his neurologist Dr. Hess in [place] Brain MRI dated 07/05/23: Impression: Few T2 and FLAIR hyperintense foci, statistically most likely attributable to small vessel microvascular ischemic disease with a couple of these lesions also faintly discernible on the prior study as well. Otherwise no focal brain parenchymal abnormality or abnormal contrast enhancement is identified. Primary Interpreting Staff: MAR REYES, RADIOLOGIST ([employer] Day Worker) /HAYDE Past Medical History: 1) Cannabis abuse (SNOMED CT 63600334) 2) Erectile dysfunction (SNOMED CT 982279427) 3) Tobacco User (SCT 177747415) 4) Hearing Loss ([facility] 63634617) 5) Drinks alcohol 6) Vitamin D Deficiency ([facility] 8921945) 7) Mood disorder 8) Pain of right shoulder joint 9) Tinnitus 10) Seizure (SCT 57742407) 11) Malnutrition (calorie) Allergies: Patient has answered NKA Medicines: Active Outpatient Medications (including Supplies): Active Outpatient Medications Status 1) MULTIVITAMIN CAP/TAB TAKE 1 TABLET BY MOUTH ONCE A ACTIVE DAY FOR NUTRITION/DIETARY SUPPLEMENTATION 2) SILDENAFIL CITRATE 100MG TAB TAKE ONE-HALF TABLET [...] MORNING AND 1000MG BY MOUTH EVERY EVENING 4 Total Medications Social History: He is . Two kids. Currently not working. Works for [employer] in the [employer]. Smokes less than 1 ppd. Few beers a day. He does smoke marijuana. He said that he is diable because of effie loss and depression. Family History: none Review of Systems: He is currently not on any medications other than levetiracetam. He denies any other recent problems with his health. He is currently not workind and he said that his prior neurologist had told him that he could return to work on August 17. Physical Examination: BP116/80 (05/21/2023 09:38), HR 105 (05/21/2023 09:38) Neurological Examination: The patient is alert and fully oriented, cooperative and follows commands. Speech and language are normal. Via video, normal cranial nerves. Unrestrictive movement Assessment and Plan: Impression: Mr. Justin has a history that is most consistent with epilepsy. Based on symptoms description partial with secondary generalization. He is on monotherapy with levetiracetam at the maximal recommended dose. No spells since the dose was increased. Based on this, will continue same dose. Plan and recommendations: Continue current treatment. We reviewed driving restrictions and general recommendations in patients with seizures. He manifested understanding. He knows that for [place] the driving restriction is for 6 months after each spell. I instructed him to call or to message me if any changes in his condition. I answered his questions to the best of my knowledge. He manifested understanding. Will like to review his records when available Follow up plan: 6 months Total tpime spent 50 min /vince RUSHING MD NEUROLOGY STAFF PHYSICIAN Signed: 07/27/2023 16:54 08/05/2023 ADDENDUM STATUS: COMPLETED Received non-VA records from Dr. Hess. Please advise if you would prefer the records be faxed or emailed. /JOSE GUADALUPE Peoples, MAHAMED-C NURSE PRACTITIONER Signed: 08/05/2023 07:47 Receipt Acknowledged By: 08/05/2023 09:46 /miles/ MARCY RUSHING MD NEUROLOGY STAFF PHYSICIAN 08/05/2023 ADDENDUM STATUS: UNSIGNED You may not VIEW this UNSIGNED Addendum. MARCY RUSHING [facility] Aug 05, 2023 07:45 AM ADDENDUM: LOCAL TITLE: Addendum STANDARD TITLE: ADDENDUM DATE OF NOTE: AUG 05, 2023@07:45:56 ENTRY DATE: AUG 05, 2023@07:45:57 AUTHOR: NADIR RAJPUT EXP COSIGNER: URGENCY: STATUS: COMPLETED Received non-VA records from Dr. Hess. Please advise if you would prefer the records be faxed or emailed. /JOSE GUADALUPE Peoples, MAHAMED-C NURSE PRACTITIONER Signed: 08/05/2023 07:47 Receipt Acknowledged By: 08/05/2023 09:46 /vince RUSHING MD NEUROLOGY STAFF PHYSICIAN --- Original Document --- 07/27/23 NEUROLOGY OUTPATIENT CONSULT STL: I saw today in the outpatient neurology clinic Mr. Justin via telemedicine Chief Complaint: to establish care for epilepsy History of Present Illness: Mr. Justin is a 58 yo right [...] are either flexed at the elbows and grey goods marker, hands on a fist position and his legs stiff and extended. This last for about 30 sec to one minute. Afterwards he is drwosy, sleepy. His said that then august 20-25 minutes later he has another one and at that point he calls the ambulance and she said that be may have another one in the hospital. The last spell was in mid February 2023. Follwing that spell the dose of levetiracetam was adjusted again to 1500mg twice daily. Since then he remains stable. He tolerates the medication and he takes it regularly. He stated that work up includes brain MRI and actully it had one done here on 07/04 and he had a EEG that he said is normal. He stated his PCP requested records from his neurologist Dr. Hess in [place] Brain MRI dated 07/05/23: Impression: Few T2 and FLAIR hyperintense foci, statistically most likely attributable to small vessel microvascular ischemic disease with a couple of these lesions also faintly discernible on the prior study as well. Otherwise no focal brain parenchymal abnormality or abnormal contrast enhancement is identified. Primary Interpreting Staff: MAR REYES, RADIOLOGIST ([employer]dd [employer] Day Worker) /HAYDE Past Medical History: 1) Cannabis abuse (SNOMED CT 28992846) 2) Erectile dysfunction (SNOMED CT 605355976) 3) Tobacco User (SCT 081657219) 4) Hearing Loss (SCT 55020096) 5) Drinks alcohol 6) Vitamin D Deficiency (SCT 7461929) 7) Mood disorder 8) Pain of right shoulder joint 9) Tinnitus 10) Seizure (SCT 10310820) 11) Malnutrition (calorie) Allergies: Patient has answered NKA Medicines: Active Outpatient Medications (including Supplies): Active Outpatient Medications Status 1) MULTIVITAMIN CAP/TAB TAKE 1 TABLET BY MOUTH ONCE A ACTIVE DAY FOR NUTRITION/DIETARY SUPPLEMENTATION 2) SILDENAFIL CITRATE 100MG TAB TAKE ONE-HALF TABLET [...] MORNING AND 1000MG BY MOUTH EVERY EVENING 4 Total Medications Social History: He is . Two kids. Currently not working. Works for [employer] in the [employer]. Smokes less than 1 ppd. Few beers a day. He does smoke marijuana. He said that he is diable because of effie loss and depression. Family History: none Review of Systems: He is currently not on any medications other than levetiracetam. He denies any other recent problems with his health. He is currently not workind and he said that his prior neurologist had told him that he could return to work on August 17. Physical Examination: BP116/80 (05/21/2023 09:38), HR 105 (05/21/2023 09:38) Neurological Examination: The patient is alert and fully oriented, cooperative and follows commands. Speech and language are normal. Via video, normal cranial nerves. Unrestrictive movement Assessment and Plan: Impression: Mr. Justin has a history that is most consistent with epilepsy. Based on symptoms description partial with secondary generalization. He is on monotherapy with levetiracetam at the maximal recommended dose. No spells since the dose was increased. Based on this, will continue same dose. Plan and recommendations: Continue current treatment. We reviewed driving restrictions and general recommendations in patients with seizures. He manifested understanding. He knows that for [place] the driving restriction is for 6 months after each spell. I instructed him to call or to message me if any changes in his condition. I answered his questions to the best of my knowledge. He manifested understanding. Will like to review his records when available Follow up plan: 6 months Total tpime spent 50 min /es/ MARCY RUSHING MD NEUROLOGY STAFF PHYSICIAN Signed: 07/27/2023 16:54 08/05/2023 ADDENDUM STATUS: UNSIGNED You may not VIEW this UNSIGNED Addendum. NADIR RAJPUT [facility] Jul 27, 2023 09:59 AM NEUROLOGY CONSULT: LOCAL TITLE: NEUROLOGY OUTPATIENT CONSULT [facility] STANDARD TITLE: NEUROLOGY CONSULT DATE OF NOTE: JUL 27, 2023@09:59 ENTRY DATE: JUL 27, 2023@09:59:52 AUTHOR: MARCY URSHING EXP COSIGNER: URGENCY: STATUS: COMPLETED NEUROLOGY OUTPATIENT CONSULT [facility] Has ADDENDA I saw today in the outpatient neurology clinic Mr. Justin via telemedicine Chief Complaint: to establish care for epilepsy History of Present Illness: Mr. Justin is a 58 yo right [...] are either flexed at the elbows and grey goods marker, hands on a fist position and his legs stiff and extended. This last for about 30 sec to one minute. Afterwards he is drwosy, sleepy. His said that then august 20-25 minutes later he has another one and at that point he calls the ambulance and she said that be may have another one in the hospital. The last spell was in mid February 2023. Follwing that spell the dose of levetiracetam was adjusted again to 1500mg twice daily. Since then he remains stable. He tolerates the medication and he takes it regularly. He stated that work up includes brain MRI and actully it had one done here on 07/04 and he had a EEG that he said is normal. He stated his PCP requested records from his neurologist Dr. Hess in [place] Brain MRI dated 07/05/23: Impression: Few T2 and FLAIR hyperintense foci, statistically most likely attributable to small vessel microvascular ischemic disease with a couple of these lesions also faintly discernible on the prior study as well. Otherwise no focal brain parenchymal abnormality or abnormal contrast enhancement is identified. Primary Interpreting Staff: AMR REYES, RADIOLOGIST (Odd [employer] Day Worker) /KLS Past Medical History: 1) Cannabis abuse (SNOMED CT 02176121) 2) Erectile dysfunction (SNOMED CT 979797582) 3) Tobacco User (SCT 608416667) 4) Hearing Loss ([facility] 83521476) 5) Drinks alcohol 6) Vitamin D Deficiency (SCT 4167008) 7) Mood disorder 8) Pain of right shoulder joint 9) Tinnitus 10) Seizure (SCT 56239824) 11) Malnutrition (calorie) Allergies: Patient has answered NKA Medicines: Active Outpatient Medications (including Supplies): Active Outpatient Medications Status 1) MULTIVITAMIN CAP/TAB TAKE 1 TABLET BY MOUTH ONCE A ACTIVE DAY FOR NUTRITION/DIETARY SUPPLEMENTATION 2) SILDENAFIL CITRATE 100MG TAB TAKE ONE-HALF TABLET [...] MORNING AND 1000MG BY MOUTH EVERY EVENING 4 Total Medications Social History: He is . Two kids. Currently not working. Works for [employer] in the [employer]. Smokes less than 1 ppd. Few beers a day. He does smoke marijuana. He said that he is diable because of effie loss and depression. Family History: none Review of Systems: He is currently not on any medications other than levetiracetam. He denies any other recent problems with his health. He is currently not workind and he said that his prior neurologist had told him that he could return to work on August 17. Physical Examination: BP116/80 (05/21/2023 09:38), HR 105 (05/21/2023 09:38) Neurological Examination: The patient is alert and fully oriented, cooperative and follows commands. Speech and language are normal. Via video, normal cranial nerves. Unrestrictive movement Assessment and Plan: Impression: Mr. Justin has a history that is most consistent with epilepsy. Based on symptoms description partial with secondary generalization. He is on monotherapy with levetiracetam at the maximal recommended dose. No spells since the dose was increased. Based on this, will continue same dose. Plan and recommendations: Continue current treatment. We reviewed driving restrictions and general recommendations in patients with seizures. He manifested understanding. He knows that for [place] the driving restriction is for 6 months after each spell. I instructed him to call or to message me if any changes in his condition. I answered his questions to the best of my knowledge. He manifested understanding. Will like to review his records when available Follow up plan: 6 months Total tpime spent 50 min /es/ MARCY RUSHING MD NEUROLOGY STAFF PHYSICIAN Signed: 07/27/2023 16:54 08/05/2023 ADDENDUM STATUS: COMPLETED Received non-VA records from Dr. Hess. Please advise if you would prefer the records be faxed or emailed. /miles/ JOSE GUADALUPE GUERRA, TETEP-C NURSE PRACTITIONER Signed: 08/05/2023 07:47 Receipt Acknowledged By: 08/05/2023 09:46 /miles/ MARCY RUSHING MD NEUROLOGY STAFF PHYSICIAN 08/05/2023 ADDENDUM STATUS: COMPLETED Please fax records to [phone]. Additionally please send them to [facility] for scanning into [facility]. Thanks /vince RUSHING MD NEUROLOGY STAFF PHYSICIAN Signed: 08/05/2023 09:47 Receipt Acknowledged By: 08/05/2023 13:33 /miles/ JOSE GUADALUPE GUERRA, TETEP-C NURSE PRACTITIONER 08/05/2023 ADDENDUM STATUS: COMPLETED Alerting RNCM, please send copy of the [facility] neurology notes to the [place] neurology office. . /miles/ JOSE GUADALUPE GUERRA, TETEP-C NURSE PRACTITIONER Signed: 08/05/2023 13:34 Receipt Acknowledged By: * AWAITING SIGNATURE * DESTIN LOWERY [facility]
== END 2024-07-10 12:08 | disposition home or self-care (01) ==
PROVIDERS: Emergency Provider Emergency Medicine
DX: R56.9 Unspecified convulsions (principal); J44.9 Chronic obstructive pulmonary disease, unspecified; F17.210 Nicotine dependence, cigarettes, uncomplicated
CPT/HCPCS: 36415; 80053; 81003; 82948; 85025; 85610; 85730; 93005; 99284

== ENCOUNTER 2025-04-11 15:14 | Emergency (ER) | payer BC, OTHER, SELFPAY ==
[2025-04-11] VITALS (10 sets, daily range): BP systolic 102–132; BP diastolic 67–88; PULSE 88–110; RESP 12–25; TEMP 37.3–37.5; O2SAT 95–100
--- NOTE | ~2025-04-11 | XR_ITS ---
XR abdomen/kub 1V 04/11/2025 16:35 INDICATION: Recurrent seizure TECHNIQUE: KUB COMPARISON: None FINDINGS: Bowel gas pattern is normal. There is no evidence of free air, mass, organomegaly, ascites or obstruction. No abnormal calculi are seen. The bones appear intact. IMPRESSION: 1: No acute abdominal abnormality identified. Reviewed, dictated and finalized at location O. ING PERSONS INVESTIGATOR
--- NOTE | ~2025-04-11 | CT_ITS ---
EXAMINATION: CT brain wo con DATE: 04/11/2025 16:55 INDICATION: Recurrent seizures. TECHNIQUE: Computed tomography (CT) of the head was performed without intravenous contrast. The dose-length product was 1352.80 mGy-cm. Automated exposure control and iterative reconstruction technique were employed. COMPARISON: CT dated 08/21/2022 FINDINGS: Study is significantly limited by motion, particularly at the vertex. No acute hemorrhage, infarction, mass or mass effect. No ventriculomegaly or midline shift. Basilar cisterns are patent. Paranasal sinuses and mastoids are pneumatized. No depressed skull fractures. IMPRESSION: 1. No acute intracranial abnormality. Limited study. Reviewed, dictated and finalized at location O. TRY BUYER
--- NOTE | 2025-04-11 15:55 | ED_ITS ---
HPI - Seizure General Chief Complaint: Seizure Stated Complaint: seizure Time Seen by Provider: 04/11/25 15:54 Source: patient and EMS Mode of arrival: EMS History of Present Illness HPI Narrative: 59 YEARS OLD MALE CAME FROM HOME BY AMBULANCE WITH HIS WHO IS TELLING ME THAT PATIENT HAVE AT LEAST 3 EPISODES OF SEIZURE SINCE A TOWN MANAGER, AURA, TONIC CLONIC, POSTICTAL CONFUSION. CURRENTLY PATIENT MAIN COMPLAINT IS HEADACHE, FORGOT HIS HEARING AID AT HOME PRIOR TO ARRIVAL. PATIENT IS TELLING ME THAT HE BEEN TAKEN OXCARBAZEPINE TWICE A DAY, HIS NEUROLOGIST AT [facility]. Seizure History: Yes (02/07) Related Data Home Medications ?Medication ?Instructions ?Recorded ?Confirmed ?Last Taken ?Type oxcarbazepine 300 mg tablet 300 mg PO .morning seizure s 07/10/24 07/10/24 07/10/24 History oxcarbazepine 300 mg tablet 600 mg PO .night seizures 07/10/24 07/10/24 07/09/24 History Allergies Allergy/AdvReac Type Severity Reaction Status Date / Time No Known Allergies Allergy Verified 04/11/25 16:40 [facility] Past Medical History Medical History Bilateral sensorineural hearing loss Chronic obstructive pulmonary disease Seizures (01/2022) Surgical History Surgical History No significant past surgical history Family History Family History Other No significant family history Social History Social History Social History: Surrogate medical decision maker: Maverick Murillo, spouse. Code status: Full code. Smoking packs per day: 0.5 Smoking cigarettes per day: 10.0 Years smoked: 40 Smoking pack-years: 20.00 Smoking status: Current every day smoker Tobacco type: cigarettes Alcohol intake: current Drinks per week: 10 Substance use: current Substance use type: marijuana Other substance usage details: daily Last use: 01/25/2022 Lack of Transportation: No Lack of Food: Never True Current Housing: I Have Housing Concerned About Future Housing: No Difficulty Paying Gas/Electric Bills: No Difficulty Paying for Meds: No Currently Unemployed: No Education: Don't Know Difficulty w/ Childcare or Family Care: No Additional living arrangements comments: Lives with spouse in [place]. 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 Gender identity (if verbalized by the patient): Male Spiritual care concerns: No Course Vital Signs Vital signs: Vital Signs Temperature 37.3 C 04/11/25 15:17 Pulse Rate 97 04/11/25 15:17 Respiratory Rate 14 04/11/25 15:17 Blood Pressure 102/67 04/11/25 15:17 Pulse Oximetry 100 04/11/25 15:17 Temperature 37.5 C 04/11/25 19:15 Pulse Rate 94 04/11/25 16:31 Respiratory Rate 16 04/11/25 19:15 Blood Pressure 112/70 04/11/25 19:15 Pulse Oximetry 96 04/11/25 19:15 Oxygen Delivery Room Air 04/11/25 15:21 MDM MDM Narrative Medical decision making narrative: PATIENT CAME WITH RECURRENT SEIZURE, HISTORY OF SEIZURE, CURRENTLY ON OX CARBAMAZEPINE 300 A.M. 600 P.M. PATIENT IS TELLING ME THAT HE TAKE HIS MEDICATION SCHEDULED. LOT OF STRESS LATELY. VITAL SIGNS ARE STABLE PHYSICAL EXAMINATION SEVERE HEARING IMPAIRMENT, CHRONIC OTHERWISE WITHIN NORMAL LIMIT DIFFERENTIAL DIAGNOSIS RECURRENT SEIZURE, NONCOMPLIANCE WITH MEDICATION, STRESS INDUCED, URINARY TRACT INFECTION ELECTROLYTE IMBALANCE DEHYDRATION BLOOD WORKUP TODAY INCLUDES CBC, CMP SHOWED INSIGNIFICANT ABNORMALITIES CT HEAD WITHOUT CONTRAST SHOWED NO ACUTE ABNORMALITY URINALYSIS SHOWED NO ACUTE ABNORMALITIES DIAGNOSIS RECURRENT SEIZURE UNABLE TO GET HOLD OF PATIENT NEUROLOGIST AT THE [facility] PATIENT WAS ADVISED TO CALL HIS NEUROLOGIST SOON POSSIBLE FOR FURTHER MANAGEMENT AND MEDICATION ADJUSTMENT MY PLAN TO INCREASE OXCARBAZEPINE 2 600 B.I.D INSTEAD OF 300 A.M. AND 600 P.M. THE PT WAS DISCHARGED TO HOME.THE PT,S CONDITION UPON DISCHARGE WAS FAIR,EDUCATION WAS PROVIDED TO THE PT IN REFERENCE TO THE FINAL IMPRESSION,DISCHARGE STUDY RESULTS,TREATMENT,PROGNOSIS AND NEED FOR FOLLOW UP . Differential Diagnosis Differential Diagnosis: ABOVE Lab Data 04/11/25 16:44 04/11/25 16:44 Labs: Lab Results 04/11/25 04/11/25 Range/Units 16:44 18:51 WBC 7.9 (4.5-10.0) K/mm3 RBC 4.72 (4.6-6.20) M/mm3 Hgb 15.3 (14.0-18.0) g/dL Hct 42.8 (42.0-52.0) % MCV 90.7 (80-100) fl MCH 32.4 (26-34) pg MCHC 35.7 (32-36) g/dl RDW 13.2 (11.5-14.5) % Plt Count 349 (150-375) k/mm3 MPV 8.2 (7.4-10.4) fl Immature Gran % (Auto) 0.3 (0-0.5) % Neut % (Auto) 81.1 H (45.5-73.1) % Lymph % (Auto) 11.3 L (18.3-44.2) % [place] % (Auto) 6.1 (2.6-8.5) % Eos % (Auto) 0.6 (0-4.4) % Baso % (Auto) 0.6 (0.2-1.2) % Lymph # (Auto) 0.89 L (0.9-3.2) K/mm3 [place] # (Auto) 0.5 (0.1-0.6) K/mm3 Eos # (Auto) 0.1 (0-0.3) K/mm3 Baso # (Auto) 0.1 (0.0-0.1) K/mm3 Abs Immat Gran (auto) 0.02 (0.00-0.031) K/mm3 Absolute Neuts (auto) 6.4 (1.3-6.7) K/mm3 Absolute Nucleated RBC 0.000 (0.0-0.012) K/mm3 Nucleated RBC % 0.0 (0.0-0.2) % Sodium 134 L (137-145) mmol/L Potassium 4.0 (3.4-5.0) mmol/L Chloride 105 (98-107) mmol/L Carbon Dioxide 22 (22-30) mmol/L Anion Gap 7 (4-12) mmol/L BUN 10 D (9-20) mg/dL Creatinine 0.96 (0.7-1.3) mg/dL Estim Creat Clear Calc 75 ml/min Estimated GFR > 60 (59 - ) Glucose 108 (65-110) mg/dL Calcium 9.2 (8.4-10.2) mg/dL Total Bilirubin 0.5 (0.2-1.3) mg/dL AST 29 (17-59) U/L ALT 23 (6-50) U/L Alkaline Phosphatase 107 (38-126) U/L Total Protein 7.7 (6.3-8.2) g/dL Albumin 4.1 (3.5-5.1) g/dL Urine Color Yellow (Yellow) Urine Appearance Clear (Clear) Urine pH 7.5 (5.0-9.0) Ur Specific [place] 1.009 (1.001-1.035) Urine Protein Negative (Negative) mg/dL Urine Glucose (UA) Negative (Negative) mg/dL Urine Ketones Trace H (Negative) mg/dL Ur Blood (Man) Negative (Negative) Urine Nitrate Negative (Negative) Urine Bilirubin Negative (Negative) Urine Urobilinogen 0.2 (<2.0) mg/dL Leukocyte Esterase Rfl Negative (Negative) JESSICA/UL Urine Opiates Screen Negative (Negative) Urine Methadone Screen Negative (Negative) Ur Barbiturates Screen Negative (Negative) Oxcarbazepine Pending Ur Phencyclidine Scrn Negative (Negative) Ur Amphetamine Screen Negative (Negative) U Benzodiazepines Scrn Negative (Negative) Urine Cocaine Screen Negative (Negative) U Cannabinoids Screen Positive A (Negative) Ethyl Alcohol < 10 (<10) mg/dL Imaging Data Radiologist's impression: ITS Impressions Abdomen X-Ray 04/11/25 16:38 IMPRESSION: 1: No acute abdominal abnormality identified. Head CT 04/11/25 17:04 IMPRESSION: 1. No acute intracranial abnormality. Limited study. Critical Care Time Critical Care Time Critical Care Time: No Discharge Plan Discharge Clinical Impression: Recurrent seizures Patient Disposition: Home Condition: Improved Instructions: Epilepsy (ED) Additional Instructions: RETURN IF SYMPTOMS ARE WORSENING , CALL YOUR FAMILY PHYSICIAN/NEUROLOGIST FOR APPOINTMENT, TAKE TYLENOL NEEDED FOR ACHES AND PAIN, CONTINUE HOME MEDICATIONS. TAKE OXCARBAZEPINE 600 IN THE MORNING AND 600 AT NIGHT. Patient Language: Mohawk Prescriptions: No Action oxcarbazepine 300 mg tablet 300 mg PO .morning oxcarbazepine 300 mg tablet 600 mg PO .night Follow-up/Referrals: UNKNOWN,DOCTOR [Non-Staff]
--- OUTSIDE RECORDS SUMMARY | 2025-04-11 16:14 | XMS_ITS | Clinical Summary ---
Author Organization [facility] Address [address] [place] [address] Care Team Providers Care Cold Water Machine Operator Name Role Phone Unavailable Primary Care Provider Unavailabl e Source Comments [facility],non-owned Affiliates and Associated Physician Practices is amultiple site organization consisting of ambulatory clinics and hospital sitesin [place], [place], [place] and [place]. This disclosure is being madepursuant to the Care Everywhere program and may not contain all information available regarding this patient. Last updated 18.[facility] Allergies No known active allergies Medications * Be aware that medications may not be up to date on this document. Alwaysverify current medications with the patient. 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
--- OUTSIDE RECORDS SUMMARY | 2025-04-11 16:14 | XMS_ITS | Clinical Summary ---
Author Organization [facility] Address [address] [place] [address] Care Team Providers Care Forging Dies Final Finisher Name Role Phone Unavailable Primary Care Provider [...] of 3 - 19+ 3-dose series) 1985 Pneumococcal Vaccine: 50+ Ye ars (1 of 1 - PCV) 2016 Zoster Vaccines (1 of 2) 2016 COVID-19 Vaccine (2024-2 6 season) 2024 Influenza Adult (#1) 2025 Hepatitis A Vaccines Aged Out No long er eligible based on patient's age to complete this topic Meningococcal B Vaccine Aged Out No l onger eligible based on patient's age to complete this topic Meningococcal Vaccine Aged Out No ignacio juan eligible based on patient's age to complete this topic RSV Immunizations Under 20 Months Aged Out No longer eligible based on patient's age to complete this topic
--- OUTSIDE RECORDS SUMMARY | 2025-04-11 16:14 | XMS_ITS | Clinical Summary ---
Author Organization [facility] Address [address] [place] [address] Care Team Providers Care Ward Assistant Name Role Phone [facility], Jus Carrington Primary Care Pro vider Allergies No known active allergies Medications No known medications Active Problems Problem Noted Date Diagnosed Date Bilateral tinnitus 02/17/2022 Sensorineural hearing loss (SNHL) of both ears 1 04/19/2021 [place] syndrome 12/29/2018 Upper extremity injury, right, initial encounter 12/15/2018 Overview (12/15/2018): Added automatically from request for surgery [id number] Brachial plexopathy 09/26/2018 Assessment & Plan (09/26/2018 [...] Date Smoking Tobacco: Every Day Cigarettes 1 40 Started: 1984 Smokeless Tobacco: Never Tobacco Cessation:Ready to Q uit: No; Counseling Given: Yes Alcohol Use Standard Drinks/Week Comments Yes 14 (1 standard drink = 0.6 oz pu re alcohol) 2 per day Sex and Gender Information Value Date Recorded Sex Assigned at Not on file 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 Gender Identity Not on file Sexual Orientation Not on file Last Filed Vital Signs Vital Sign Reading Time Taken Comments Blood Pressure 116/74 02/25/2019 8:55 AM NUISANCE ANIMAL DAMAGE CONTROL AGENT Pulse 83 02/25/2019 8:55 AM NUISANCE ANIMAL DAMAGE CONTROL AGENT Temperature 36.6 C (97.9 F) 02/25/2019 8:55 AM NUISANCE ANIMAL DAMAGE CONTROL AGENT Respiratory Rate 19 02/25/2019 8:55 AM NUISANCE ANIMAL DAMAGE CONTROL AGENT Oxygen Saturation 98% 02/25/2019 8:55 AM NUISANCE ANIMAL DAMAGE CONTROL AGENT Inhaled Oxygen Concentration - - Weight 68 kg (150 lb) 02/17/2022 11:17 AM CDT Height 185.4 cm (6' 1) 02/17/2022 11:17 AM CDT Body Mass Index 19.79 02/17/2022 11:17 AM CDT Plan of Treatment Not on file Insurance [employer] Neo PLM OOS BLUE [employer] OOS Advance Directives For more information, please contact: [phone] * Full Code (Latest Code Status on File) Date Activated Date Inactivated Comments 02/22/2019 6:34 PM 02/23/2019 4:22 PM Care Teams Ward Assistant Relationship Specialty Start Date End Date [facility], Jus Carrington [address] [place] [address] PCP - General Genetics 09/28/18
[2025-04-11] MEDS: levETIRAcetam 1000MG/NACL100ML 1,000 MG/100 ML BAG 400 MG IVPB (16:41)
[2025-04-11] MEDS: diazePAM INJ (*CRX) 10 MG/2 ML SYRINGE 5 MG IV PUSH (16:42)
[2025-04-11 16:51] LABS: Hematocrit 42.8 % (42.0-52.0); Hemoglobin 15.3 g/dL (14.0-18.0); Immature Granulocyte Percent A 0.3 % (0-0.5); Lymphocytes Absolute Auto 0.89 K/mm3 (0.9-3.2); Mean Corpuscular HGB Conc 35.7 g/dl (32-36); Mean Corpuscular Hemoglobin 32.4 pg (26-34); Mean Corpuscular Volume 90.7 fl (80-100); Nucleated Red Blood Cells Absolute Auto 0.000 K/mm3 (0.0-0.012); Nucleated Red Blood Cells Perc 0.0 % (0.0-0.2); Platelet Count Result 349 k/mm3 (150-375); Red Blood Count 4.72 M/mm3 (4.6-6.20); White Blood Count 7.9 K/mm3 (4.5-10.0)
[2025-04-11 17:03] LABS: Alanine Aminotransferase 23 U/L (6-50); Albumin Level 4.1 g/dL (3.5-5.1); Alkaline Phosphatase 107 U/L (38-126); Anion Gap 7 mmol/L (4-12); Aspartate Amino Transferase 29 U/L (17-59); Bilirubin,Total 0.5 mg/dL (0.2-1.3); Blood Urea Nitrogen 10 mg/dL (9-20); Calcium 9.2 mg/dL (8.4-10.2); Carbon Dioxide 22 mmol/L (22-30); Chloride 105 mmol/L (98-107); Estimated CRCL calculation 75 ml/min; Estimated Glomerular Filt Rate > 60; Glucose 108 mg/dL (65-110); Potassium 4.0 mmol/L (3.4-5.0); Sodium 134 mmol/L (137-145); Total Protein 7.7 g/dL (6.3-8.2)
[2025-04-11] MEDS: SODIUM CHLORIDE 0.9% IV 1,000 ML 999 ML IV CONT (17:19)
[2025-04-11 19:00] LABS: Add Urine Microscopic? NO; Appearance Urine Clear (Clear); Glucose Urine UA Negative (Negative); Leukocyte Esterase Ur Negative LEU/UL (Negative); Nitrate Urine Negative (Negative); Specific Grav Ur 1.009 (1.001-1.035)
[2025-04-11 19:20] LABS: Cannabinoid Screen Urine Positive (Negative)
== END 2025-04-11 20:10 | disposition home or self-care (01) ==
PROVIDERS: Emergency Provider Emergency Medicine
DX: R56.9 Unspecified convulsions (principal); J44.9 Chronic obstructive pulmonary disease, unspecified; H90.3 Sensorineural hearing loss, bilateral; F17.210 Nicotine dependence, cigarettes, uncomplicated
CPT/HCPCS: 36415; 70450; 74018; 80053; 80183; 80307; 81003; 82077; 85025; 96361; 96365; 96375; 99284; A9270; J1953; J3360; J7030